=== PATIENT | female | born 1955 | race Caucasian/White ===

== ENCOUNTER → 2021-05-05 | Outpatient (CLI) | payer OTHER ==
[2021-04-26 15:00] VITALS: BP 138/86
[~2021-05-05] MED LIST: AMOX1TAB61 PO; ASCO100T4 PO; LORA2TAB89 PO; TRAM100T2 PO; vitamin D PO
--- NOTE | 2021-05-05 16:16 | RAD ---
EXAM: PET/CT SCAN INDICATION: Lung cancer, history of breast cancer. COMPARISON: PET/CT SCAN TECHNIQUE: Approximately 60 minutes after the intravenous administration of millicuries o f F-18 fluorodeoxyglucose (FDG), PET imaging of the body from the base of the skull through the mid t highs was performed. Reconstruction in all 3 planes were performed. The patient's serum glucose level at the time of the F-18 FDG administration was mg/dL. A noncontrast CT scan was obtained for attenua tion correction and anatomic localization purposes only and is not considered a diagnostic CT scan. PQRS compliance Statement One or more of the following individualized dose reduction techniques were utilized for this study: 1. Automated exposure control 2. Adjustment of the mA and/or kV according to patient size 3. Use of iterative reconstruction technique FINDINGS: Background: Mediastinal SUV max: 3.2 Liver SUV max: 2.75. HEAD AND NECK: There is a 0.9 cm lymph node in the lower left neck with mild FDG uptake, SUV max 3.9. There is FDG uptake in the left supra clavicular region with a 1.8 x 1.9 cm lymph node posterior to the medial left clavicle with SUV max 6.2. There is a small focus of mild radiotracer uptake in the r ight supraclavicular region with SUV max 4.0 which may correlate with a small vessel or a tiny lymph node. CHEST: There is bulky prevascular, right paratracheal/anterior mediastinal, and right hilar lymphaden opathy with high FDG uptake, SUV max 12.7. There is a mass in the right upper lobe measuring 5.1 x 4. 7 cm with high FDG uptake, SUV max 14.0. There are surrounding consolidative and groundglass opacitie s and interlobular septal thickening. Opacities in the right lower lobe with no increased FDG uptake are likely atelectasis. There are small pleural effusions with no metabolic activity. Heart is normal in size. There is a pericardial effusion. There are calcifications in the aorta. Ther e is mild FDG uptake along the left axillary node dissection, likely postoperative. There are bilater al breast implants. ABDOMEN AND PELVIS: No suspicious FDG uptake or lymphadenopathy in the abdomen and pelvis. There is a 2.3 cm cyst in the left hepatic lobe with no FDG uptake. Possible sludge in the gallbladder. The archuleta creas, spleen, adrenal glands, kidneys, and ureters are unremarkable. There multiple large bladder di verticula. Uterus and ovaries are unremarkable. Mild sigmoid and descending colon diverticulosis. Sma ll bowel and stomach are unremarkable. Abdominal aorta is normal in caliber with moderate calcified a therosclerosis. MUSCULOSKELETAL: No suspicious FDG uptake or osseous lesion. IMPRESSION: 1. FDG-avid right upper lobe mass consistent with malignancy. FDG avid mediastinal and right hilar ly mphadenopathy consistent with metastatic disease. 2. There is increased radiotracer uptake in the lower left neck and left subclavicular lymph nodes, a nd to a lesser extent in the right supraclavicular region, which may also represent metastatic diseas e. 3. No evidence of metastatic disease in the abdomen and pelvis. Electronically signed by: Leonor Ventura MD (05/05/2021 4:13 PM) [id number]
== END ==
LOC: PETSC 10:10
PROVIDERS: ATTEND Internal Medicine Hematology & Oncology
DX: C79.81 Secondary malignant neoplasm of breast (principal); I31.3 Pericardial effusion (noninflammatory); I70.0 Atherosclerosis of aorta
CPT/HCPCS: 78815; A9552

== ENCOUNTER 2021-05-10 13:52 | Inpatient (IN) | payer MEDICARE, OTHER ==
[~2021-05-10] VITALS: Ht 170.2 cm; Wt 71.4 kg
[2021-05-10 15:00] VITALS: BP 117/68
[2021-05-10] MEDS ORDERED: ACETAMINOPHEN 325 MG TABLET. PO PRN (15:45)
[2021-05-10] MEDS ORDERED: HYDROmorphone 2 MG/ML VIAL IV PRN (15:45)
[2021-05-10] MEDS ORDERED: MAGNESIUM HYDROXIDE 2,400 MG/30 ML ORAL.SUSP. PO PRN (15:45)
[2021-05-10] MEDS ORDERED: ONDANSETRON PF 4 MG/2 ML VIAL. IVP PRN (15:45)
[2021-05-10] MEDS ORDERED: CALCIUM CARBONATE 500 MG TAB.CHEW PO PRN (15:45)
[2021-05-10] MEDS ORDERED: ZOLPIDEM 5 MG TABLET. PO PRN (15:45)
--- NOTE | 2021-05-10 16:18 | PDOC1 ---
History and Physical Date of Admission Date of Admission DATE: 05/10/21 TIME: 16:16 Identification/Chief Complaint Chief Complaint Left arm swelling Source Source: Patient History of Present Illness History of Present Illness Ms Cheatham is a 65yo F w/ PMHx breast cancer (s/p mastectomy left breast 1990 and right breast 2012 - was on tamoxifen, now off. no chemo or radiation therapy), smoker, and recent diagnosis of right lung adenocarcinoma who presents as a direct admission I excepted from Dr. Christopher device oncology office for worsening left upper extremity and neck swelling and pain with bilateral lower extremity and shortness of breath. She has had increasing shortness of breath, lump in her left neck swelling of left arm for the past couple of months. Her shortness of breath and swelling comes and goes for about the past 4 months. She was admitted 04/24 to 04/26/2021 for similar symptoms and underwent right lung biopsy which returned positive for adenocarcinoma and had hematology oncology and radiation oncology consultation. CT chest with contrast revealed right upper lobe mass measuring 4.8 x 5.5 cm concerning for malignancy as well as numerous enlarged prevascular and pretracheal lymph nodes which cause extrinsic compression of the SVC and the left brachiocephalic vein and a moderate right and small left pleural effusion back on 04/24/[address] abdomen negative for metastatic disease Had thoracentesis with 725cc removed on 04/25/2021 at time of biopsy. She was discharged with improved symptoms. PET CT on 05/05 with FDG-avid right upper lobe mass consistent with malignancy. FDG avid mediastinal and right hilar lymphadenopathy consistent with metastatic disease. Also with increased radiotracer uptake in the lower left neck and left subcla vicular lymph nodes, and to a lesser extent in the right supraclavicular region, which may also represent metastatic disease. She has undergone radiation treatment and has plans to initiate chemotherapy but her oncology visit she significant shortness of breath left upper extremity swelling and bilateral lower extremity swelling came urgently directly admitted. Past Medical History CENTRAL NERVOUS SYSTEM: Other Heme/Onc: Cancer Past Surgical History Past Surgical History: Breast Biopsy, Mastectomy, Other Family History Family History: Cancer Social History Smoke: <1 pack per day ALCOHOL: occassional Drugs: Marijuana Current Medications Current Medications Current Medications Ringer's Solution 1,000 ml @ 100 mls/hr Q10H IV ; Start 05/10/21 at 15:45 Ondansetron HCl (Zofran) 4 mg PRN Q6HRS PRN IVP NAUSEA/VOMITING; Start 05/10/21 at 15:45 Calcium Carbonate/ Glycine (Tums) 500 mg PRN Q3HRS PRN PO UPSET STOMACH; Start 05/10/21 at 15:45 Zolpidem Tartrate (Ambien) 5 mg PRN QHS PRN PO INSOMNIA, MAY REPEAT IN 1HR; Start 05/10/21 at 15:45 Hydromorphone HCl (Dilaudid) 0.5 mg PRN Q3HRS PRN IV PAIN-SEE COMMENTS; Start 05/10/21 at 15:45 Oxycodone HCl (Roxicodone) 5 mg PRN Q4HRS PRN PO MILD PAIN, 2ND CHOICE; Start 05/10/21 at 15:45 Acetaminophen (Tylenol) 650 mg PRN Q6HRS PRN PO Headaches, Temp > 101.5F; Start 05/10/21 at 15:45 Senna/Docusate Sodium (Senna Plus) 1 tab BID PO ; Start 05/10/21 at 21:00 Magnesium Hydroxide (Milk Of Magnesia) 2,400 mg PRN Q12HR PRN PO CONSTIPATION; Start 05/10/21 at 15:45 Heparin Sodium (Porcine) (Heparin Sodium) 5,000 unit Q12HR SQ ; Start 05/10/21 at 16:00 Active Scripts Active Reported Augmentin 875-125 Tablet (Amoxicillin/Potassium Clav) 1 Each Tablet 1 Tab PO BID Ativan (Lorazepam) 2 Mg Tablet 2 Mg PO Q6HRS Tramadol Hcl 100 Mg Tbmp.24hr 100 Mg PO Q6H PRN [vitamin D ] 1 Tab PO DAILY Vitamin C (Ascorbic Acid) 100 Mg Tablet 1 Tab PO DAILY 30 Days Allergies Allergies: Coded Allergies: No Known Drug Allergies (Unverified , 04/24/21) ROS General: YES: Fatigue, Malaise; No: Chills, Night Sweats, Appetite, Other PSYCHOLOGICAL ROS: No: Anxiety, Behavioral Disorder, Concentration difficultie, Decreased libido, Depression, Disorientation, Hallucinations, Hostility, Irritablity, Memory difficulties, Mood Swings, Obsessive thoughts, Physical abuse, Sexual abuse, Sleep disturbances, Suicidal ideation, Other Eyes: No Blurry vision, No Decreased vision, No Double vision, No Dry eyes, No Excessive tearing, No Eye Pain, No Itchy Eyes, No Loss of vision, No Photophobia, No Scotomata, No Uses contacts, No Uses glasses, No Other HEENT: No: Heacaches, Visual Changes, Hearing change, Nasal congestion, Nasal discharge, Oral lesions, Sinus pain, Sore Throat, Epistaxis, Sneezing, Snoring, Tinnitus, Vertigo, Vocal changes, Other ALLERGY AND IMMUNOLOGY: No: Hives, Insect Bite Sensitivity, Itchy/Watery Eyes, Nasal Congestion, Post Nasal Drip, Seasonal Allergies, Other Hematological and Lymphatic: No: Bleeding Problems, Blood Clots, Blood Transfusions, Brusing, Night Sweats, Pallor, Swollen Lymph Nodes, Other ENDOCRINE: No: Breast Changes, Galactorrhea, Hair Pattern Changes, Hot Flashes, Malaise/lethargy, Mood Swings, Palpitations, Polydipsia/polyuria, Skin Changes, Temperature Intolerance, Unexpected Weight Changes, Other Breast: No New/Changing Breast Lumps, No Nipple changes, No Nipple discharge, No Other Respiratory: YES: Cough, Shortness of breath, Tachypnea, Wheezing; No: Hemoptysis, Orthopnea, Pleuritic Pain, SOB with excertion, Sputum Changes, Stridor, Other Cardiovascular: No Chest Pain, No Palpitations, No Orthopnea, No Paroxysmal Noc. Dyspnea, No Edema, No Lt Headedness, No Other Gastrointestinal: No Nausea, No Vomiting, No Abdominal Pain, No Diarrhea, No Constipation, No Melena, No Hematochezia, No Other Genitourinary: No Dysuria, No Frequency, No Incontinence, No Hematuria, No Retention, No Discharge, No Urgency, No Pain, No Flank Pain, No Other, No , No , No , No , No , No , No Musculoskeletal: Yes Joint Swelling, Yes Muscle Pain; No Gait Disturbance, No Joint Pain, No Joint Stiffness, No Muscular Weakness, No Pain In:, No Swelling In:, No Other Neurological: No Behavorial Changes, No Bowel/Bladder ControlChng, No Confusion, No Dizziness, No Gait Disturbance, No Headaches, No Impaired Coord/balance, No Memory Loss, No Numbness/Tingling, No Seizures, No Speech Problems, No Tremors, No Visual Changes, No Weakness, No Other Skin: No Dry Skin, No Eczema, No Hair Changes, No Lumps, No Mole Changes, No Mottling, No Nail Changes, No Pruritus, No Rash, No Skin Lesion Changes, No Other, No Acne Physical Exam General: Alert, Oriented X3, Cooperative, moderate distress HEENT: Atraumatic, PERRLA, EOMI, Mucous membr. moist/pink Lungs: Other (Bilateral wheezing) Heart: S1S2, RRR, no thrills, no rubs, no gallops, no murmurs Abdomen: Normal bowel sounds, Soft, No tenderness, No hepatosplenomegaly, No masses Rectal Exam: not examined Extremities: No clubbing, No cyanosis, Normal pulses, Other (1+ ankle edema) Skin: No rashes, No breakdown, No significant lesion Neuro: Normal gait, Normal speech, Strength at 5/5 X4 ext, Normal tone, Sensation intact, Cranial nerves 3-12 NL, Reflexes 2+ Psych/Mental Status: Mental status NL, Mood NL VTE Prophylaxis Ordered VTE Prophylaxis Devices: Yes VTE Pharmacological Prophylaxi: Yes Assessment/Plan Assessment/Plan A/P: Left arm swelling and pain -with active cancerconcern for possible DVT will get venous Doppler to rule as. More likely this is a symptomatic brachiocephalic vein compression that has not been responsive to radiation therapy will consult IR for consideration of brachiocephalic stenting. Given her active and aggressive adenocarcinoma with need for chemotherapy will consult for port placement as well Bilateral lower extremity edema. Likely some mild diastolic CHF due to pulmonary hypertension from lung cancer and likely undiagnosed COPD. Will elevate extremities check NT proBNP could benefit from Lasix we will follow up labs. Shortness of breath - appears to have some COPD and definite SVC syndrome. 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 Will d/w pulm and IR if intervention is necessary. elevate arm H/o breast cancer (s/p mastectomy left breast 1990 and right breast 2012 - was on tamoxifen, now off. no chemo or radiation therapy) - metallic objects visible on left on imaging Smoker - counseled on cessation, nicotine patch FEN - General diet, npo after midnight PPX - heparin will hold tomorrow for likely biopsy in AM FULL CODE Dispo - inpatient for symptomatic right lung mass, likely 2 midnights. Justifications for Admission General Conditions Abnormal capillary refill?: Yes Justification for admission: Patient has tachycardia (> 100 beats per minute) or hypotension (SBP < 90 mm Hg) leading to inadequate systemic perfusion as indicated by new abnormal capillary refill of greater than 3 seconds. Other Justification BEVERLY ROSARIO MD May 10, 2021 16:18
[2021-05-10] MEDS: NICOTINE 7MG PATCH. TD SCH (16:46)
[2021-05-10] MEDS: oxyCODONE IR 5 MG TABLET PO PRN ×2 (16:47→21:47)
[2021-05-10] MEDS: HEPARIN for SUB-Q USE 5,000 UNIT/ML VIAL. SQ SCH ×2 (16:51→21:47)
[2021-05-10 17:03] LABS: BASO # 0.1 x10^3/uL (0.0-0.2); BASO % 1 % (0-3); EOS # 0.1 x10^3/uL (0.0-0.7); EOS % 2 % (0-3); HEMATOCRIT 38.9 % (36.0-47.0); HEMOGLOBIN 13.3 g/dL (12.0-15.5); LYMPH # 0.8 x10^3/uL (1.0-4.8); LYMPH % 12 % (24-48); MEAN CORPUSCULAR HEMOGLOBIN 37 pg (25-35); MEAN CORPUSCULAR HGB CONC 34 g/dL (31-37); MEAN CORPUSCULAR VOLUME 108 fL (79-100); MONO # 0.7 x10^3/uL (0.0-1.1); MONO % 10 % (0-9); NEUT # 5.2 x10^3/uL (1.8-7.7); NEUT % 75 % (31-73); PLATELET COUNT 308 x10^3/uL (140-400); RED BLOOD COUNT 3.61 x10^6/uL (3.50-5.40); RED CELL DISTRIBUTION WIDTH 13.3 % (11.5-14.5); WHITE BLOOD COUNT 6.9 x10^3/uL (4.0-11.0)
[2021-05-10 17:04] LABS: PROTHROMBIN TIME PATIENT 14.4 SEC (11.7-14.0)
[2021-05-10 17:59] LABS: ALBUMIN 2.7 g/dL (3.4-5.0); ALBUMIN/GLOBULIN RATIO 0.8 (1.0-1.7); CALCIUM 8.7 mg/dL (8.5-10.1); CREATININE 0.8 mg/dL (0.6-1.0); GFR 71.8; POTASSIUM 3.2 mmol/L (3.5-5.1); TOTAL BILIRUBIN 0.7 mg/dL (0.2-1.0)
[2021-05-10 19:00] VITALS: BP 140/53
[2021-05-10] MEDS: BUDESONIDE 0.5 MG/2 ML NEBU. NEB SCH (19:18)
[2021-05-10] MEDS: IPRATRPIUM/ALBUTEROL 0.5/2.5MG 3 ML NEBU. NEB SCH ×2 (19:18→20:00)
--- NOTE | 2021-05-10 19:54 | RAD ---
EXAM: XR CHEST 1V 05/10/2021 5:50 PM CLINICAL INDICATION: Lung cancer, worsening shortness of breath COMPARISON: Chest radiograph 04/26/2021 TECHNIQUE: AP upright view of the chest FINDINGS: The heart is normal in size. There is fullness of the right hilum corresponding with known hilar mass. There is unchanged fullness of the right hilum corresponding with known lymphadenopathy. The right upper lobe mass is slightly less dense medially, similar appearance to 04/24/2021. There is increased along the minor fissure and several new nodular opacities in the right upper lung. There a re mildly increased small pleural effusions. Mild left basilar opacities are new. No pneumothorax. Th ere are clips in the left axilla. IMPRESSION: 1. Persistent right upper lobe mass, slightly less dense medially, which could be due to differences in technique given short interval. This is similar in appearance to 04/24/2021. 2. There are a few new nodular opacities in the right upper lung and new opacities in the left lung b ase. 3. Slightly increased, small pleural effusions. 4. Unchanged right hilar fullness corresponding with lymphadenopathy. Electronically signed by: Leonor Ventura MD (05/10/2021 7:51 PM) [id number]
[2021-05-10] MEDS: IV RINGERS,LACTATED 1000ML 1,000 ML IV SCH (21:35)
[2021-05-10] MEDS: SENNOSIDES/DOCUSATE 8.6/50MG TABLET. PO SCH (21:35)
--- NOTE | 2021-05-10 21:40 | NUR ---
Scheduled 1999 Duoneb non-administered as patient received previous dose at approx. 1920.
--- NOTE | 2021-05-10 21:57 | NUR ---
Patient's family member called in regards to the medications the patient received this evening. Patient's security code confirmed and medications administered this evening listed for family member. Family member upset and concerned that patient was given oxycodone for pain asking, "...who prescribed that for her", "...she only takes tramadol", and "...does she know she got an opioid"? Family member informed that admitting MD prescribed oxycodone and assured that patient was educated on medication prior to administration(this RN verified with RADIATION ONCOLOGIST while on phone). This RN offered to transfer call to patient's room so family member could verify with patient that education on oxycodone was done; family member declined. This RN spoke with patient after call. Patient's NKDA status verified and patient confirmed that she was aware the oxycodone was given for pain, it was an opioid and reports no concerns with taking it this evening. Patient remains in bed, call light within reach and no other needs voiced at this time.
[2021-05-10 23:00] VITALS: BP 120/62
--- NOTE | 2021-05-10 23:47 | RAD ---
US DPLX VENOUS EXTREMITY UPPER LT History: Reason: left arm swelling, lung cancer, concern for DVT / Spl. Instructions: / History: Comparison: None. Procedure: Color flow Doppler, Doppler spectral analysis, and 2D images are obtained with and without compression in the jugular vein, subclavian vein, axillary vein, brachial vein, radial vein, ulnar v ein, and basilic and cephalic veins. Findings: Patent left internal jugular, subclavian, axillary and brachial veins. Left radial vein appears paten t. Left ulnar vein is not well evaluated due to soft tissue swelling. No definite thrombosis. Patent cephalic and basilic veins. IMPRESSION: 1. No evidence of deep vein thrombosis although evaluation is degraded within the forearm. Electronically signed by: Cameron Sung DO (05/10/2021 11:44 PM) [facility]
[2021-05-11] VITALS (11 sets, daily range): BP systolic 80–139; BP diastolic 45–80
[2021-05-11] MEDS: IV RINGERS,LACTATED 1000ML 1,000 ML IV SCH ×3 (01:45→14:38)
[2021-05-11] MEDS: ALBUTEROL SULFATE 2.5 MG/3 ML NEBU. NEB PRN ×2 (04:19→14:00)
[2021-05-11] MEDS: IPRATRPIUM/ALBUTEROL 0.5/2.5MG 3 ML NEBU. NEB SCH ×4 (07:02→20:19)
[2021-05-11] MEDS: BUDESONIDE 0.5 MG/2 ML NEBU. NEB SCH ×2 (07:02→20:19)
--- NOTE | 2021-05-11 08:00 | NUR ---
spoke with Marcela and Terry about her plan of care. answered questions about disease and possible progression. Terry is resting in bed. becomes short of air with activity. o2 sat is 95% on room air but has air hunger. o2 applied at 1 liter per nasal cannula for comfort.
[2021-05-11] MEDS: HEPARIN for SUB-Q USE 5,000 UNIT/ML VIAL. SQ SCH ×2 (09:00→21:21)
[2021-05-11] MEDS: SENNOSIDES/DOCUSATE 8.6/50MG TABLET. PO SCH ×2 (09:00→21:19)
--- NOTE | 2021-05-11 09:30 | NUR ---
obtained consent for vena cavagram with intervention. sister at bedside. they asked whether her port a cath would be placed today. IR called. NO consent obtained for this procedure. questions answered.
--- NOTE | 2021-05-11 10:31 | NUR ---
SW following. Discussed with RN, pt from home, 2L, room air, NPO. Pt having a procedure today. Oncology following for new lung cancer dx. RN advised no SW needs at this time. SW will continue to follow.
[2021-05-11] MEDS: NICOTINE 7MG PATCH. TD SCH (10:58)
[2021-05-11] MEDS ORDERED: IODIXANOL 320 MG/ML 100 ML VIAL. ONE (12:09)
[2021-05-11] MEDS ORDERED: LIDOCAINE WITH 8.4% SOD BICARB 3 ML DISP.SYRIN. ONE (12:09)
[2021-05-11] MEDS: oxyCODONE IR 5 MG TABLET PO PRN ×2 (12:11→19:29)
--- NOTE | 2021-05-11 12:26 | NUR ---
LEONID IS COMPLAINING OF LEFT SHOULDER PAIN AND IS REQUESTING MEDICATION,.GIVEN ROXICODONE WITH SIP OF WATER. OTHERWISE REMAINS NPO FOR PROCEDURE THIS AFTERNOON. CONTINUES TO BE SOB WITH ACTIVITY. SISTER DEPARTS. DR. JEREZ IS HERE AND UPDATE ON CONDITION Addendum: 05/11/21 at 1229 by KENA GARZA RN DEPARTING FOR PROCEDURE Addendum: 05/11/21 at 1247 by KENA GARZA RN sister notified that they are here to take to radiology
--- NOTE | 2021-05-11 12:27 | PDOC ---
[employer] PROGRESS NOTE Date of Service DOS: DATE: 05/11/21 TIME: 12:25 Chief Complaint Chief Complaint Left arm swelling and pain -with active cancer DVT - symptomatic brachiocephalic vein compression aggressive adenocarcinoma lung Bilateral lower extremity edema. diastolic CHF due to pulmonary hypertension from lung cancer and COPD. Shortness of breath - appears to have some COPD and definite SVC syndrome. 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 Will d/w pulm and IR if intervention is necessary. elevate arm H/o breast cancer (s/p mastectomy left breast 1990 and right breast 2012 - was on tamoxifen, now off. no chemo or radiation therapy) - metallic objects visible on left on imaging Smoker - counseled on cessation, nicotine patch History of Present Illness History of Present Illness IR to see for consideration of brachiocephalic stenting. Vitals/I&O Vitals/I&O: Vital Signs Date Time Temp Pulse Resp B/P (MAP) Pulse Ox O2 Delivery O2 Flow Rate FiO2 05/11/21 12:11 22 Nasal Cannula 2.0 05/11/21 11:20 93 05/11/21 11:00 97.8 107 125/75 (92) 97.8 I & O 05/10/21 05/10/21 05/11/21 15:00 23:00 07:00 Intake Total 500 ml 300 ml Balance 500 ml 300 ml Physical Exam General: Alert, Oriented X3, Cooperative, moderate distress Lungs: Wheezing Abdomen: Normal bowel sounds, Soft, No tenderness, No hepatosplenomegaly, No masses Extremities: No clubbing, No cyanosis, Normal pulses, Other (1+ ankle edema) Skin: No rashes, No breakdown, No significant lesion Labs Labs: Laboratory Tests Test 05/10/21 16:45 White Blood Count 6.9 x10^3/uL (4.0-11.0) Red Blood Count 3.61 x10^6/uL (3.50-5.40) Hemoglobin 13.3 g/dL (12.0-15.5) Hematocrit 38.9 % (36.0-47.0) Mean Corpuscular Volume 108 fL (79-100) Mean Corpuscular Hemoglobin 37 pg (25-35) Mean Corpuscular Hemoglobin Concent 34 g/dL (31-37) Red Cell Distribution Width 13.3 % (11.5-14.5) Platelet Count 308 x10^3/uL (140-400) Neutrophils (%) (Auto) 75 % (31-73) Lymphocytes (%) (Auto) 12 % (24-48) Monocytes (%) (Auto) 10 % (0-9) Eosinophils (%) (Auto) 2 % (0-3) Basophils (%) (Auto) 1 % (0-3) Neutrophils # (Auto) 5.2 x10^3/uL (1.8-7.7) Lymphocytes # (Auto) 0.8 x10^3/uL (1.0-4.8) Monocytes # (Auto) 0.7 x10^3/uL (0.0-1.1) Eosinophils # (Auto) 0.1 x10^3/uL (0.0-0.7) Basophils # (Auto) 0.1 x10^3/uL (0.0-0.2) Prothrombin Time 14.4 SEC (11.7-14.0) Prothromb Time International Ratio 1.2 (0.8-1.1) Sodium Level 138 mmol/L (136-145) Potassium Level 3.2 mmol/L (3.5-5.1) Chloride Level 101 mmol/L (98-107) Carbon Dioxide Level 28 mmol/L (21-32) Anion Gap 9 (6-14) Blood Urea Nitrogen 8 mg/dL (7-20) Creatinine 0.8 mg/dL (0.6-1.0) Estimated GFR (Cockcroft-Gault) 71.8 BUN/Creatinine Ratio 10 (6-20) Glucose Level 90 mg/dL (70-99) Calcium Level 8.7 mg/dL (8.5-10.1) Total Bilirubin 0.7 mg/dL (0.2-1.0) Aspartate Amino Transf (AST/SGOT) 30 U/L (15-37) Alanine Aminotransferase (ALT/SGPT) 33 U/L (14-59) Alkaline Phosphatase 105 U/L (46-116) CH-Mos-X-Type Natriuretic Peptide 536 pg/mL (0-124) Total Protein 6.0 g/dL (6.4-8.2) Albumin 2.7 g/dL (3.4-5.0) Albumin/Globulin Ratio 0.8 (1.0-1.7) Review of Systems Review of Systems: no n.v.d try to place port Comment Review of Relevant I have reviewed the following items yasmani (where applicable) has been applied. Medications: Current Medications Medications (Trade) Dose Ordered Sig/Gwendolyn Route PRN Reason Start Time Stop Time Status Last Admin Dose Admin Ringer's Solution 1,000 ml @ 100 mls/hr Q10H IV 05/10/21 15:45 05/11/21 06:58 Oxycodone HCl (Roxicodone) 5 mg PRN Q4HRS PRN PO MILD PAIN, 2ND CHOICE 05/10/21 15:45 05/11/21 12:11 Senna/Docusate Sodium (Senna Plus) 1 tab BID PO 05/10/21 21:00 05/10/21 21:35 Heparin Sodium (Porcine) (Heparin Sodium) 5,000 unit Q12HR SQ 05/10/21 16:00 05/10/21 21:47 Nicotine (Nicoderm Cq 7mg) 1 patch DAILY TD 05/10/21 16:30 05/11/21 10:58 Budesonide (Pulmicort) 0.5 mg RTBID NEB 05/10/21 20:00 05/11/21 07:02 Albuterol/ Ipratropium (Duoneb) 3 ml RTQID NEB 05/10/21 16:30 05/11/21 11:19 Albuterol Sulfate (Ventolin Neb Soln) 2.5 mg PRN Q4HRS PRN NEB SHORTNESS OF BREATH 05/10/21 16:30 05/11/21 04:19 Lorazepam (Ativan) 2 mg PRN Q6HRS PRN PO ANXIETY / AGITATION 05/10/21 19:30 05/11/21 10:57 Justifications for Admission General Conditions Abnormal capillary refill?: Yes Justification for admission: Patient has tachycardia (> 100 beats per minute) or hypotension (SBP < 90 mm Hg) leading to inadequate systemic perfusion as indicated by new abnormal capillary refill of greater than 3 seconds. Other Justification LC DOUGLAS MD May 11, 2021 12:27
[2021-05-11] MEDS ORDERED: MIDAZOLAM HCL/PF 5 MG/5 ML VIAL. ONE (12:28)
[2021-05-11] MEDS ORDERED: HEPARIN for IV BOLUS 10,000 UNIT/10 ML VIAL. ONE (12:28)
[2021-05-11] MEDS ORDERED: fentaNYL PF VIAL 250 MCG/5 ML VIAL ONE (12:28)
[2021-05-11] MEDS ORDERED: LIDOCAINE WITH 8.4% SOD BICARB 3 ML DISP.SYRIN. IJ ONE (13:30)
[2021-05-11] MEDS ORDERED: fentaNYL PF VIAL 250 MCG/5 ML VIAL IV ONE (13:30)
[2021-05-11] MEDS ORDERED: IODIXANOL 320 MG/ML 100 ML VIAL. IART ONE (13:30)
[2021-05-11] MEDS ORDERED: MIDAZOLAM HCL/PF 5 MG/5 ML VIAL. IV ONE (13:30)
[2021-05-11] MEDS ORDERED: CONTRAST GIVEN. MC PRN (13:30)
--- NOTE | 2021-05-11 13:58 | PDOC ---
Provider Note Date of Service: DATE: 05/11/21 TIME: 13:45 Provider Note IR NOTE LUE VENOGRAM: Left brachiocephalic vein widely patent with no collaterals or stenosis. Minimal narrowing of SVC wo collaterals or evidence of significant stenosis. Brachiocephalic or SVC stenting would confer no benefit in this setting. This does not seem to be the cause of the patients LUE edema. Hx of left axillary dissection noted. Perhaps this in conjunction with mediastinal lymph invasion is precipitating lymphedema? Discussed with Oncology. Will plan on port in AM. Justifications for Admission General Conditions Abnormal capillary refill?: Yes Justification for admission: Patient has tachycardia (> 100 beats per minute) or hypotension (SBP < 90 mm Hg) leading to inadequate systemic perfusion as indicated by new abnormal capillary refill of greater than 3 seconds. Other Justification SHERIF IRAHETA MD May 11, 2021 13:58
[2021-05-11] MEDS ORDERED: IPRATRPIUM/ALBUTEROL 0.5/2.5MG 3 ML NEBU. NEB ONE (14:00)
[2021-05-11] MEDS ORDERED: methylPREDNISolone SOD SUCC PF 40 MG/ML VIAL. IV ONE (14:30)
[2021-05-11] MEDS: POTASSIUM CHLORIDE 10MEQ 100 ML IV SCH ×2 (14:45→15:38)
--- NOTE | 2021-05-11 14:45 | NUR ---
returned from IR. respirations are labored and shallow. color is dusky. o2 on at 3l. audible wheeze. Dr. Mann white and returned page. orders received. stat respiratory treatment given. she is on frequent vs. sister at bedside. o2 placed to 2lnc nail beds dusky. Addendum: 05/11/21 at 1519 by KENA GARZA RN she is breathing easier after rt tx, o2 at 2l. no audible wheeze. chest xray done. and steroid given. she is feeling better and color is slightly better.
--- NOTE | 2021-05-11 15:00 | RAD ---
Study: XR CHEST 1V Indication: Wheezing. Dyspnea. Comparison: 05/10/2021 Findings: Right larger than left pleural effusions have increased. Greater degree of thickening along the right minor fissure which is again noted to be elevated. Hazy attenuation of the aerated right lung on a b ackground of atelectasis and known apical lung mass. Volume loss overlying the left pleural effusion. Increased interstitial markings. Left axillary surgical clips. Breast implants. Impression: Right larger than left pleural effusions have increased as has the extent of atelectasis. Redemonstra cortez right upper lung mass better characterized on the recent PET/CT. Electronically signed by: WILLIE SEPULVEDA MD (05/11/2021 2:57 PM) [facility]
--- NOTE | 2021-05-11 17:09 | PDOC ---
PULMONARY PROGRESS NOTES DATE: 05/11/21 TIME: 17:07 Vitals Vital Signs Date Time Temp Pulse Resp B/P (MAP) Pulse Ox O2 Delivery O2 Flow Rate FiO2 05/11/21 16:18 92 Nasal Cannula 3.0 05/11/21 14:45 113 22 122/71 (88) 05/11/21 13:45 96.8 96.8 General: Alert, Oriented X4 Lungs: Wheezing Cardiovascular: S1, S2 Abdomen: Soft, Non-tender Extremities: No Edema Labs Laboratory Tests Test 05/10/21 16:45 White Blood Count 6.9 x10^3/uL (4.0-11.0) Red Blood Count 3.61 x10^6/uL (3.50-5.40) Hemoglobin 13.3 g/dL (12.0-15.5) Hematocrit 38.9 % (36.0-47.0) Mean Corpuscular Volume 108 fL (79-100) Mean Corpuscular Hemoglobin 37 pg (25-35) Mean Corpuscular Hemoglobin Concent 34 g/dL (31-37) Red Cell Distribution Width 13.3 % (11.5-14.5) Platelet Count 308 x10^3/uL (140-400) Neutrophils (%) (Auto) 75 % (31-73) Lymphocytes (%) (Auto) 12 % (24-48) Monocytes (%) (Auto) 10 % (0-9) Eosinophils (%) (Auto) 2 % (0-3) Basophils (%) (Auto) 1 % (0-3) Neutrophils # (Auto) 5.2 x10^3/uL (1.8-7.7) Lymphocytes # (Auto) 0.8 x10^3/uL (1.0-4.8) Monocytes # (Auto) 0.7 x10^3/uL (0.0-1.1) Eosinophils # (Auto) 0.1 x10^3/uL (0.0-0.7) Basophils # (Auto) 0.1 x10^3/uL (0.0-0.2) Prothrombin Time 14.4 SEC (11.7-14.0) Prothromb Time International Ratio 1.2 (0.8-1.1) Sodium Level 138 mmol/L (136-145) Potassium Level 3.2 mmol/L (3.5-5.1) Chloride Level 101 mmol/L (98-107) Carbon Dioxide Level 28 mmol/L (21-32) Anion Gap 9 (6-14) Blood Urea Nitrogen 8 mg/dL (7-20) Creatinine 0.8 mg/dL (0.6-1.0) Estimated GFR (Cockcroft-Gault) 71.8 BUN/Creatinine Ratio 10 (6-20) Glucose Level 90 mg/dL (70-99) Calcium Level 8.7 mg/dL (8.5-10.1) Total Bilirubin 0.7 mg/dL (0.2-1.0) Aspartate Amino Transf (AST/SGOT) 30 U/L (15-37) Alanine Aminotransferase (ALT/SGPT) 33 U/L (14-59) Alkaline Phosphatase 105 U/L (46-116) RB-Bwh-R-Type Natriuretic Peptide 536 pg/mL (0-124) Total Protein 6.0 g/dL (6.4-8.2) Albumin 2.7 g/dL (3.4-5.0) Albumin/Globulin Ratio 0.8 (1.0-1.7) Medications Active Scripts Medications Dose Route/Sig Max Daily Dose Days Date Category Augmentin 875-125 Tablet (Amoxicillin/Potassium Clav) 1 Each Tablet 1 Tab PO BID 04/26/21 Reported Ativan (Lorazepam) 2 Mg Tablet 2 Mg PO Q6HRS 04/26/21 Reported Tramadol Hcl 100 Mg Tbmp.24hr 100 Mg PO Q6H PRN 04/26/21 Reported [vitamin D ] 1 Tab PO DAILY 04/24/21 Reported Vitamin C (Ascorbic Acid) 100 Mg Tablet 1 Tab PO DAILY 30 04/24/21 Reported Impression . CHART REVIEWED SPOKE WITH RANGE MANAGER RESP FAILURE SUSPECT RADIATION INDUCED PNEUMONITIS INCREASE EFFUSIONS, WILL PROCEED WITH THORACENTESIS ADDED ROCEPHIN AND STEROIDS. BRANDY MATTHEWS MD May 11, 2021 17:09
[2021-05-11] MEDS: cefTRIAXone IV Push 1 GM VIAL. IVP SCH (17:38)
--- NOTE | 2021-05-11 18:00 | NUR ---
sitting on side of bed. eating supper. breathing appears easier. she is able to eat without o2 on. left arm remains swollen pulse is better. dressing to above the left brachial is clean dry and intact. sister is going home for the evening.
[2021-05-11] MEDS: methylPREDNISolone SOD SUCC PF 125 MG/2 ML VIAL. IV SCH (21:19)
[2021-05-12] VITALS (7 sets, daily range): BP systolic 107–162; BP diastolic 48–75
[2021-05-12] MEDS: IPRATRPIUM/ALBUTEROL 0.5/2.5MG 3 ML NEBU. NEB SCH ×4 (07:38→20:29)
[2021-05-12] MEDS: BUDESONIDE 0.5 MG/2 ML NEBU. NEB SCH ×2 (07:38→20:29)
[2021-05-12] MEDS: IV RINGERS,LACTATED 1000ML 1,000 ML IV SCH ×3 (07:45→22:55)
[2021-05-12] MEDS ORDERED: LIDOCAINE 1%/EPI 1:100,000 20 ML VIAL. ONE (08:07)
[2021-05-12] MEDS: SENNOSIDES/DOCUSATE 8.6/50MG TABLET. PO SCH ×2 (08:28→20:55)
[2021-05-12] MEDS: HEPARIN for SUB-Q USE 5,000 UNIT/ML VIAL. SQ SCH ×2 (08:28→21:15)
--- NOTE | 2021-05-12 08:51 | PDOC ---
PULMONARY PROGRESS NOTES DATE: 05/12/21 TIME: 08:51 Vitals Vital Signs Date Time Temp Pulse Resp B/P (MAP) Pulse Ox O2 Delivery O2 Flow Rate FiO2 05/12/21 07:42 93 Nasal Cannula 4.0 05/12/21 07:00 97.5 119 21 162/63 (96) 97.5 General: Alert, Oriented X4 Lungs: Wheezing Cardiovascular: S1, S2 Abdomen: Soft, Non-tender Extremities: No Edema Labs Laboratory Tests Test 05/10/21 16:45 White Blood Count 6.9 x10^3/uL (4.0-11.0) Red Blood Count 3.61 x10^6/uL (3.50-5.40) Hemoglobin 13.3 g/dL (12.0-15.5) Hematocrit 38.9 % (36.0-47.0) Mean Corpuscular Volume 108 fL (79-100) Mean Corpuscular Hemoglobin 37 pg (25-35) Mean Corpuscular Hemoglobin Concent 34 g/dL (31-37) Red Cell Distribution Width 13.3 % (11.5-14.5) Platelet Count 308 x10^3/uL (140-400) Neutrophils (%) (Auto) 75 % (31-73) Lymphocytes (%) (Auto) 12 % (24-48) Monocytes (%) (Auto) 10 % (0-9) Eosinophils (%) (Auto) 2 % (0-3) Basophils (%) (Auto) 1 % (0-3) Neutrophils # (Auto) 5.2 x10^3/uL (1.8-7.7) Lymphocytes # (Auto) 0.8 x10^3/uL (1.0-4.8) Monocytes # (Auto) 0.7 x10^3/uL (0.0-1.1) Eosinophils # (Auto) 0.1 x10^3/uL (0.0-0.7) Basophils # (Auto) 0.1 x10^3/uL (0.0-0.2) Prothrombin Time 14.4 SEC (11.7-14.0) Prothromb Time International Ratio 1.2 (0.8-1.1) Sodium Level 138 mmol/L (136-145) Potassium Level 3.2 mmol/L (3.5-5.1) Chloride Level 101 mmol/L (98-107) Carbon Dioxide Level 28 mmol/L (21-32) Anion Gap 9 (6-14) Blood Urea Nitrogen 8 mg/dL (7-20) Creatinine 0.8 mg/dL (0.6-1.0) Estimated GFR (Cockcroft-Gault) 71.8 BUN/Creatinine Ratio 10 (6-20) Glucose Level 90 mg/dL (70-99) Calcium Level 8.7 mg/dL (8.5-10.1) Total Bilirubin 0.7 mg/dL (0.2-1.0) Aspartate Amino Transf (AST/SGOT) 30 U/L (15-37) Alanine Aminotransferase (ALT/SGPT) 33 U/L (14-59) Alkaline Phosphatase 105 U/L (46-116) GO-Dls-R-Type Natriuretic Peptide 536 pg/mL (0-124) Total Protein 6.0 g/dL (6.4-8.2) Albumin 2.7 g/dL (3.4-5.0) Albumin/Globulin Ratio 0.8 (1.0-1.7) Medications Active Scripts Medications Dose Route/Sig Max Daily Dose Days Date Category Augmentin 875-125 Tablet (Amoxicillin/Potassium Clav) 1 Each Tablet 1 Tab PO BID 04/26/21 Reported Ativan (Lorazepam) 2 Mg Tablet 2 Mg PO Q6HRS 04/26/21 Reported Tramadol Hcl 100 Mg Tbmp.24hr 100 Mg PO Q6H PRN 04/26/21 Reported [vitamin D ] 1 Tab PO DAILY 04/24/21 Reported Vitamin C (Ascorbic Acid) 100 Mg Tablet 1 Tab PO DAILY 30 04/24/21 Reported Impression . CHART REVIEWED SPOKE WITH FLIGHT TEST DATA ACQUISITION TECHNICIAN RESP FAILURE SUSPECT RADIATION INDUCED PNEUMONITIS INCREASE EFFUSIONS, WILL PROCEED WITH THORACENTESIS ADDED ROCEPHIN AND STEROIDS. BRANDY MATTHEWS MD May 12, 2021 08:51
[2021-05-12] MEDS ORDERED: MIDAZOLAM HCL/PF 2 MG/2 ML VIAL. ONE (09:08)
[2021-05-12] MEDS ORDERED: fentaNYL PF VIAL 100 MCG/2 ML VIAL ONE (09:08)
[2021-05-12] MEDS ORDERED: fentaNYL PF VIAL 100 MCG/2 ML VIAL IV ONE (09:45)
[2021-05-12] MEDS ORDERED: LIDOCAINE 1%/EPI 1:100,000 20 ML VIAL. INJ ONE (09:45)
[2021-05-12] MEDS ORDERED: HEPARIN PF 500 UNIT/5 ML DISP.SYRIN. IVP ONE ×2 (09:50→10:00)
[2021-05-12] MEDS ORDERED: MIDAZOLAM HCL/PF 2 MG/2 ML VIAL. IV ONE (10:00)
--- NOTE | 2021-05-12 10:41 | RAD ---
05/11/2021 8:20 AM 1.Right Thoracentesis 2. Placement of a left internal jugular tunneled central venous catheter with port 3. Left upper extremity venogram Clinical History: Right pleural effusion. Left arm swelling. Lung cancer. Chemotherapy access.. Possi ble left brachiocephalic narrowing and SVC narrowing on recent CT. Consent: The procedure was explained in its entirety to the patient or the patients designated repres entative by a member of the treatment team, including a discussion of the risks, benefits and commonl y accepted alternatives to the procedure, as well as the expected consequences of no therapy whatsoev er. Discussion of the risks included, but was not limited to, those that are most frequent and thos e that are rare but possibly severe or life-threatening, as well as the possibility of unforeseen com plications. Left upper extremity venogram, superior vena cavogram, multiple selective central venograms: The lef t upper extremity was prepped and draped using sterile barrier technique. 1% lidocaine was administer ed for local anesthesia. Ultrasound demonstrates left cephalic vein to be widely patent. The vein is accessed using micropuncture technique. A 5 [place] vascular sheath was placed. Venograms of the left upper extremity were performed from the sheath. The cephalic vein is patent. The left subclavian vein is patent. Left brachiocephalic vein is patent. Catheter was then advanced into the brachiocephalic vein and venograms continued demonstrating no significant brachiocephalic narrowing. The catheter was positioned in the right brachiocephalic vein which is found to be patent. The SVC demonstrates a mil d eccentric narrowing without evidence of flow limitation. No significant venous reflux into collater al vessels is identified. Venogram findings are not consistent with either SVC syndrome, or hemodynam ically significant left brachiocephalic vein stenosis. Thoracentesis: Sonographic assessment demonstrates a large right pleural effusion. A site for skin en try was selected, and subsequently prepped and draped using sterile barrier technique. 1% lidocaine without epinepherine was administered for local anesthesia to the skin and subcutaenous tissues. A 5 [place] sheathed needle was passed into the pleural space. Clear yellow fluid was aspirated and the c atheter was connected to a vacuum. Approximately 1.8 liters of fluid were drained. The catheter was r emoved and adequate hemostasis was obtained. A sterile dressing was applied. The patient tolerated t he procedure well, without complications. Port placement: The patient was then placed in a supine position. The left neck and chest were prepped and draped using maximum sterile barrier technique including the use of: Current guideline approved cutaneous antisepsis, a large sterile sheet to establish a steril e field. Additionally the sanding machine operator or tender wore a hat, mask, sterile gloves, a sterile gown during the proced ure as well as practiced acceptable hand hygiene prior to placing the port. Ultrasound-guided access: Ultrasound evaluation showed left jugular vein to be patent and compressib le. 1 % lidocaine with epinephrine was administered to the skin and subcutaneous tissues overlying th e left neck and chest. Under direct ultrasound guidance a single wall puncture was made followed by t ract dilation and placement of a sheath. An ultrasound image was saved and sent to PACS. Next, an inc ision was made in an infraclavicular location and a pocket created. The catheter was tunneled betwe en the pocket and the venotomy site. The catheter was advanced through the peel away sheath, under f luoroscopic guidance, such that it's tip was in the mid right atrium. The catheter was connected to t he port reservoir. The port was accessed and found to flush and aspirate normally. The reservoir was then placed into the subcutaneous pocket. The wound was closed in layers using 4-0 Vicryl suture. De rmabond was applied overlying the wound, and venotomy site. The patient tolerated procedure without i mmediate complication. Sedation: Conscious sedation was performed for 48 minutes. Sedation was carried out while the patie nt was continually monitored by a member of the Radiology nursing staff. Continual cardiopulmonary m onitoring was carried out during the procedure. The patient tolerated the procedure well and there w ere no immediate complications. Fluoroscopy time: 2.9 mins Dose area product 6 Spears centimeter squared Impression: 1. Successful right thoracentesis 2. Successful placement of a left internal jugular tunneled central venous catheter with port 3. No venographic evidence of hemodynamically significant SVC syndrome or left brachiocephalic venous stenosis Electronically signed by: Amado Tapia MD (05/12/2021 10:39 AM) [id number]
[2021-05-12] MEDS: methylPREDNISolone SOD SUCC PF 125 MG/2 ML VIAL. IV SCH ×2 (10:42→20:54)
[2021-05-12] MEDS: NICOTINE 7MG PATCH. TD SCH (10:43)
[2021-05-12] MEDS: oxyCODONE IR 5 MG TABLET PO PRN ×2 (10:48→21:09)
--- NOTE | 2021-05-12 12:37 | NUR ---
SW following. Discussed with RN, pt from home, 4L (does not use at home), regular diet. Pt requested to see the DPOA paperwork to determine if she wants to complete it. SW gave blank DPOA paperwork to patient, she also wants her sister to take a look. Pt declined any further SW needs at this time. SW will continue to follow.
--- NOTE | 2021-05-12 12:48 | PDOC ---
[facility] PROGRESS NOTE Date of Service DOS: DATE: 05/12/21 TIME: 12:47 Chief Complaint Chief Complaint Left arm swelling and pain -with active cancer DVT - symptomatic brachiocephalic vein compression aggressive adenocarcinoma lung Bilateral lower extremity edema. diastolic CHF due to pulmonary hypertension from lung cancer and COPD. Shortness of breath - appears to have some COPD and definite SVC syndrome. 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 Will d/w pulm and IR if intervention is necessary. elevate arm H/o breast cancer (s/p mastectomy left breast 1990 and right breast 2012 - was on tamoxifen, now off. no chemo or radiation therapy) - metallic objects visible on left on imaging Smoker - counseled on cessation, nicotine patch History of Present Illness History of Present Illness port today still weakness, poor po intake still full code, will be difficult discussion, she may be getting too dyspneic and weak to tolerate much therapy Vitals/I&O Vitals/I&O: Vital Signs Date Time Temp Pulse Resp B/P (MAP) Pulse Ox O2 Delivery O2 Flow Rate FiO2 05/12/21 12:43 Room Air 05/12/21 11:54 4.0 05/12/21 11:48 95 05/12/21 11:00 98.1 64 17 143/48 (79) 98.1 I & O 05/11/21 05/11/21 05/12/21 15:00 23:00 07:00 Intake Total 60 ml Balance 60 ml Physical Exam General: Alert, Oriented X3, Cooperative, moderate distress Lungs: Wheezing Abdomen: Normal bowel sounds, Soft, No tenderness, No hepatosplenomegaly, No masses Extremities: No clubbing, No cyanosis, Normal pulses, Other (1+ ankle edema) Skin: No rashes, No breakdown, No significant lesion Review of Systems Review of Systems: weakness, dyspnea Comment Review of Relevant I have reviewed the following items yasmani (where applicable) has been applied. Medications: Current Medications Medications (Trade) Dose Ordered Sig/Gwendolyn Route PRN Reason Start Time Stop Time Status Last Admin Dose Admin Heparin Sodium/ Sodium Chloride (HEPARIN for ARTERIAL LINE FLUSH) 1,000 unit 1X ONCE IART 05/11/21 13:30 05/11/21 13:31 DC 05/11/21 13:30 Lidocaine HCl (Buffered Lidocaine 1%) 1 ml 1X ONCE IJ 05/11/21 13:30 05/11/21 13:31 DC 05/11/21 13:30 Midazolam HCl (Versed) 2 mg 1X ONCE IV 05/11/21 13:30 05/11/21 13:31 DC 05/11/21 13:30 Fentanyl Citrate (Fentanyl 5ml Vial) 75 mcg 1X ONCE IV 05/11/21 13:30 05/11/21 13:31 DC 05/11/21 13:30 Iodixanol (Visipaque 320) 39 ml 1X ONCE IART 05/11/21 13:30 05/11/21 13:31 DC 05/11/21 13:30 Methylprednisolone Sodium Succinate (SOLU-Medrol 40MG VIAL) 40 mg 1X ONCE IV 05/11/21 14:30 05/11/21 14:31 DC 05/11/21 14:08 Potassium Chloride/Water 100 ml @ 100 mls/hr Q1H IV 05/11/21 15:00 05/11/21 16:59 DC 05/11/21 15:38 Methylprednisolone Sodium Succinate (SOLU-Medrol 125MG VIAL) 125 mg Q12HR IV 05/11/21 21:00 05/12/21 10:42 Ceftriaxone Sodium (Rocephin) 1 gm Q24H IVP 05/11/21 18:00 05/11/21 17:38 Midazolam HCl (Versed) 2 mg 1X ONCE IV 05/12/21 10:00 05/12/21 10:01 DC 05/12/21 09:18 Fentanyl Citrate (Fentanyl 2ml Vial) 100 mcg 1X ONCE IV 05/12/21 09:45 05/12/21 09:46 DC 05/12/21 09:18 Lidocaine/ Epinephrine (LIDOCAINE 1%-EPI 1:100,000 Multi-Dose) 20 ml 1X ONCE INJ 05/12/21 09:45 05/12/21 09:46 DC 05/12/21 09:45 Heparin Sodium (Porcine) (Hep Lock Adult) 500 unit 1X ONCE IVP 05/12/21 10:00 05/12/21 10:01 DC 05/12/21 09:57 Justifications for Admission General Conditions Abnormal capillary refill?: Yes Justification for admission: Patient has tachycardia (> 100 beats per minute) or hypotension (SBP < 90 mm Hg) leading to inadequate systemic perfusion as indicated by new abnormal capillary refill of greater than 3 seconds. Other Justification LC DOUGLAS MD May 12, 2021 12:47
--- NOTE | 2021-05-12 14:30 | NUR ---
Pt. refused radiation today due to L arm pain from portacath placement, she states she cannot hold it above her head at this time.
[2021-05-12] MEDS: cefTRIAXone IV Push 1 GM VIAL. IVP SCH (17:31)
--- NOTE | 2021-05-13 00:25 | CONS ---
DATE OF CONSULTATION: 05/12/2021 REQUESTING PHYSICIAN: Yifan Omer MD REASON FOR CONSULTATION: The patient is seen in pulmonary consultation at the request of Dr. Omer for abnormal x-ray, increasing shortness of breath, hypoxemia. HISTORY OF PRESENT ILLNESS: The patient is a 65-year-old who was recently admitted back in the late part of April with a lung mass, pleural effusion. She had a biopsy revealing evidence of malignancy. She is currently being treated as an outpatient for bronchogenic carcinoma with radiation. The patient was admitted to undergo placement of a left internal tunneled central catheter with port. She also had a left upper extremity venogram and right thoracentesis. There was successful removal of 1800 mL of pleural fluid. There was successful placement of a left internal jugular tunneled central catheter with port. There was no venographic evidence of hemodynamically significant SVC syndrome or left brachiocephalic venous stenosis. Since the admission, the patient became increasingly more short of breath. I was asked to see her in consultation. She is currently requiring oxygen supplementation. She has a cough, mostly nonproductive. She did have some hemoptysis sometime last week. She has had previous PET scan on 05/05 revealing uptake in the right upper lobe consistent with malignancy. She also had FDG mediastinal, right hilar uptake compatible with metastatic disease. PAST MEDICAL HISTORY: Remarkable for: 1. Previous history of breast cancer status post mastectomy, left breast 1990. 2. She had right breast mastectomy in 2012, she is on tamoxifen. 3. COPD. 4. History of tobacco dependence, in remission. PAST SURGICAL HISTORY: 1. Previous breast biopsy. 2. Mastectomy as indicated above. FAMILY HISTORY: Cancer. SOCIAL HISTORY: She smokes 1 pack of cigarettes a day. REVIEW OF SYSTEMS: CONSTITUTIONAL: No documented fever. HEENT: No new headaches or diplopia. PULMONARY: As indicated above. CARDIOVASCULAR: As indicated above. No chest pain or pressure. GASTROINTESTINAL: No nausea, vomiting, diarrhea. GENITOURINARY: No dysuria or frequency. MUSCULOSKELETAL: No localized muscle aches or joint pains. SKIN: No new skin rashes. NEUROLOGIC: No headaches, diplopia or blurred vision. Labs were reviewed. She is currently receiving nebulized treatments, Pulmicort nebulized, and ceftriaxone. I did start her on steroids yesterday for presumptive diagnosis of radiation-induced pneumonitis. PHYSICAL EXAMINATION: GENERAL: On examination, the patient appeared to be ill. She was in no significant respiratory distress, currently on 4 liters of oxygen supplementation. She came in on 1 liter and has had increasing oxygen requirements in the last couple of days. HEENT: The sclerae were nonicteric. NECK: Jugular venous distention was not elevated. No lymphadenopathy. CHEST: Full expansion. LUNGS: Diminished breath sounds in the bases, expiratory wheeze. CARDIOVASCULAR: Regular rate and rhythm with S1, S2. No S3. ABDOMEN: Soft, nontender, nondistended. EXTREMITIES: No clubbing, cyanosis or edema. LABORATORY DATA: Labs were reviewed. White count was normal. INR was 1.2. Electrolytes were noted. BUN and creatinine normal. Potassium is low. IMAGING: Chest x-ray from yesterday was reviewed. There is right-sided effusion, larger than previous x-ray. IMPRESSION: 1. Acute hypoxemic respiratory failure. 2. Metastatic lung cancer. 3. History of breast cancer. 4. Venogram revealing no evidence of hemodynamically significant SVC syndrome or left brachiocephalic venous stenosis. 5. Recurrent malignant effusion. 6. Protein malnutrition, present upon admission. 7. Status post placement of internal jugular central venous catheter with port. 8. Right upper extremity venous Doppler revealed no evidence of deep venous thrombosis. 6. Hypokalemia. 7. 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 PLAN: 1. We will continue support with oxygen supplementation. 2. Steroids. 3. IV antibiotics. 4. DVT prophylaxis. 5. Nutritional support. 6. Nebulized treatments. 7. Case discussed with Dr. Hollins. We will proceed with repeat thoracentesis. 8. If pleural fluid reaccumulates, we may consider PleurX catheter. I do appreciate the privilege in sharing in this patient's care. MAYELA HARPER: Candy TID: [id number]
[2021-05-13 03:00] VITALS: BP 138/63
[2021-05-13 07:00] VITALS: BP 108/68
[2021-05-13] MEDS: BUDESONIDE 0.5 MG/2 ML NEBU. NEB SCH (07:32)
[2021-05-13] MEDS: IPRATRPIUM/ALBUTEROL 0.5/2.5MG 3 ML NEBU. NEB SCH ×3 (07:32→15:34)
--- NOTE | 2021-05-13 07:38 | PDOC ---
[facility] PROGRESS NOTE Date of Service DOS: DATE: 05/13/21 TIME: 07:34 Chief Complaint Chief Complaint A/P: Left arm swelling and pain -with active cancer no DVT, no brachiocephalic vein compression. Likely lymphedema, consulted OT lymphedema Aggressive adenocarcinoma lung Bilateral lower extremity edema. diastolic CHF due to pulmonary hypertension from lung cancer and COPD. Shortness of breath - appears to have some COPD and definite SVC syndrome. aggressive nebs Right lung cancer - PULMONARY ACINAR ADENOCARCINOMA with mets Neck swelling - elevate arm H/o breast cancer (s/p mastectomy left breast 1990 and right breast 2012 - was on tamoxifen, now off. no chemo or radiation therapy) - metallic objects visible on left on imaging Smoker - counseled on cessation, nicotine patch Recurrent malignant effusion - s/p 1.8L thoracentesis Protein malnutrition, present upon admission. Acute hypoxic respiratory failure - possibly radiation pneumonitis vs bronchitis FEN - Regular diet PPX - lovenox FULL CODE Dispo - History of Present Illness History of Present Illness Ms Cheatham is a 65yo F w/ PMHx breast cancer (s/p mastectomy left breast 1990 and right breast 2012 - was on tamoxifen, now off. no chemo or radiation therapy), smoker, and recent diagnosis of right lung adenocarcinoma who presents as a direct admission I excepted from Dr. Christopher device oncology office for worsening left upper extremity and neck swelling and pain with bilateral lower extremity and shortness of breath. She has had increasing shortness of breath, lump in her left neck swelling of left arm for the past couple of months. Her shortness of breath and swelling comes and goes for about the past 4 months. She was admitted 04/24 to 04/26/2021 for similar symptoms and underwent right lung biopsy which returned positive for adenocarcinoma and had hematology oncology and radiation oncology consultation. CT chest with contrast revealed right upper lobe mass measuring 4.8 x 5.5 cm concerning for malignancy as well as numerous enlarged prevascular and pretracheal lymph nodes which cause extrinsic compression of the SVC and the left brachiocephalic vein and a moderate right and small left pleural effusion back on 04/24/[address] abdomen negative for metastatic disease Had thoracentesis with 725cc removed on 04/25/2021 at time of biopsy. She was discharged with improved symptoms. PET CT on 05/05 with FDG-avid right upper lobe mass consistent with malignancy. FDG avid mediastinal and right hilar lymphadenopathy consistent with metastatic disease. Also with increased radiotracer uptake in the lower left neck and left subclavicular lymph nodes, and to a lesser extent in the right supraclavicular region, which may also represent metastatic disease. She has undergone radiation treatment and has plans to initiate chemotherapy but at her oncology visit she significant shortness of breath left upper extremity swelling and bilateral lower extremity swelling came urgently directly admitted. 05/12: Port placed, thoracentesis completed 1.8L. Still on 4L NCO2 Afebrile. Swelling of bilateral lower extremities improved. Left upper extremity still swollen. Lymphedema sleeves were. She still little short of breath on 4 L oxygen. Right basilar crackles noted. She feels improved on the steroids and would really like to go home discussed need for 6-minute walk and steroid taper outpatient and she needs to reschedule it her previously canceled chemotherapy appointment for 05/16/2021 Vitals/I&O Vitals/I&O: Vital Signs Date Time Temp Pulse Resp B/P (MAP) Pulse Ox O2 Delivery O2 Flow Rate FiO2 05/13/21 03:00 97.8 105 20 138/63 (88) 90 Nasal Cannula 4.0 97.8 I & O 05/12/21 05/12/21 05/13/21 15:00 23:00 07:00 Intake Total 0 ml 1540 ml 500 ml Output Total 1750 ml Balance -1750 ml 1540 ml 500 ml Physical Exam General: Alert, Oriented X3, Cooperative, moderate distress Lungs: Wheezing Abdomen: Normal bowel sounds, Soft, No tenderness, No hepatosplenomegaly, No masses Extremities: No clubbing, No cyanosis, Normal pulses, Other (1+ ankle edema) Skin: No rashes, No breakdown, No significant lesion Comment Review of Relevant I have reviewed the following items yasmani (where applicable) has been applied. Medications: Current Medications Medications (Trade) Dose Ordered Sig/Gwendolyn Route PRN Reason Start Time Stop Time Status Last Admin Dose Admin Midazolam HCl (Versed) 2 mg 1X ONCE IV 05/12/21 10:00 05/12/21 10:01 DC 05/12/21 09:18 Fentanyl Citrate (Fentanyl 2ml Vial) 100 mcg 1X ONCE IV 05/12/21 09:45 05/12/21 09:46 DC 05/12/21 09:18 Lidocaine/ Epinephrine (LIDOCAINE 1%-EPI 1:100,000 Multi-Dose) 20 ml 1X ONCE INJ 05/12/21 09:45 05/12/21 09:46 DC 05/12/21 09:45 Heparin Sodium (Porcine) (Hep Lock Adult) 500 unit 1X ONCE IVP 05/12/21 10:00 05/12/21 10:01 DC 05/12/21 09:57 Justifications for Admission General Conditions Abnormal capillary refill?: Yes Justification for admission: Patient has tachycardia (> 100 beats per minute) or hypotension (SBP < 90 mm Hg) leading to inadequate systemic perfusion as indicated by new abnormal capillary refill of greater than 3 seconds. Other Justification BEVERLY ROSARIO MD May 13, 2021 07:38
[2021-05-13 08:56] LABS: ALBUMIN 2.7 g/dL (3.4-5.0); ALBUMIN/GLOBULIN RATIO 0.8 (1.0-1.7); CREATININE 0.7 mg/dL (0.6-1.0); GFR 83.7; MAGNESIUM 2.1 mg/dL (1.8-2.4); POTASSIUM 3.9 mmol/L (3.5-5.1); TOTAL BILIRUBIN 0.3 mg/dL (0.2-1.0); TOTAL PROTEIN 6.2 g/dL (6.4-8.2)
[2021-05-13] MEDS: SENNOSIDES/DOCUSATE 8.6/50MG TABLET. PO SCH (08:58)
[2021-05-13] MEDS: NICOTINE 7MG PATCH. TD SCH (08:59)
[2021-05-13] MEDS: methylPREDNISolone SOD SUCC PF 125 MG/2 ML VIAL. IV SCH (09:01)
[2021-05-13] MEDS: HEPARIN for SUB-Q USE 5,000 UNIT/ML VIAL. SQ SCH (09:16)
[2021-05-13 11:00] VITALS: BP 136/75
[2021-05-13] MEDS ORDERED: traMADol 50 MG TABLET PO PRN (11:45)
[2021-05-13] MEDS ORDERED: MAGNESIUM CITRATE 296 ML SOLUTION. PO ONE (11:45)
--- NOTE | 2021-05-13 12:14 | PDOC ---
PULMONARY PROGRESS NOTES DATE: 05/13/21 TIME: 12:13 Subjective pt. remains on 4 liters NC no overnight events no increased SOA or Cough Vitals Vital Signs Date Time Temp Pulse Resp B/P (MAP) Pulse Ox O2 Delivery O2 Flow Rate FiO2 05/13/21 11:35 Nasal Cannula 4.0 05/13/21 07:36 94 05/13/21 07:00 97.5 102 18 108/68 (81) 97.5 ROS: No Nausea, No Chest Pain, No Abdominal Pain, No Increase Cough General: Alert, Oriented X4 Lungs: Wheezing Cardiovascular: S1, S2 Abdomen: Soft, Non-tender Extremities: No Edema Skin: Warm Labs Laboratory Tests Test 05/13/21 08:15 Sodium Level 139 mmol/L (136-145) Potassium Level 3.9 mmol/L (3.5-5.1) Chloride Level 102 mmol/L (98-107) Carbon Dioxide Level 29 mmol/L (21-32) Anion Gap 8 (6-14) Blood Urea Nitrogen 16 mg/dL (7-20) Creatinine 0.7 mg/dL (0.6-1.0) Estimated GFR (Cockcroft-Gault) 83.7 BUN/Creatinine Ratio 23 (6-20) Glucose Level 132 mg/dL (70-99) Calcium Level 9.0 mg/dL (8.5-10.1) Magnesium Level 2.1 mg/dL (1.8-2.4) Total Bilirubin 0.3 mg/dL (0.2-1.0) Aspartate Amino Transf (AST/SGOT) 32 U/L (15-37) Alanine Aminotransferase (ALT/SGPT) 41 U/L (14-59) Alkaline Phosphatase 93 U/L (46-116) Total Protein 6.2 g/dL (6.4-8.2) Albumin 2.7 g/dL (3.4-5.0) Albumin/Globulin Ratio 0.8 (1.0-1.7) Laboratory Tests Test 05/13/21 08:15 Sodium Level 139 mmol/L (136-145) Potassium Level 3.9 mmol/L (3.5-5.1) Chloride Level 102 mmol/L (98-107) Carbon Dioxide Level 29 mmol/L (21-32) Anion Gap 8 (6-14) Blood Urea Nitrogen 16 mg/dL (7-20) Creatinine 0.7 mg/dL (0.6-1.0) Estimated GFR (Cockcroft-Gault) 83.7 BUN/Creatinine Ratio 23 (6-20) Glucose Level 132 mg/dL (70-99) Calcium Level 9.0 mg/dL (8.5-10.1) Magnesium Level 2.1 mg/dL (1.8-2.4) Total Bilirubin 0.3 mg/dL (0.2-1.0) Aspartate Amino Transf (AST/SGOT) 32 U/L (15-37) Alanine Aminotransferase (ALT/SGPT) 41 U/L (14-59) Alkaline Phosphatase 93 U/L (46-116) Total Protein 6.2 g/dL (6.4-8.2) Albumin 2.7 g/dL (3.4-5.0) Albumin/Globulin Ratio 0.8 (1.0-1.7) Medications Active Scripts Medications Dose Route/Sig Max Daily Dose Days Date Category Augmentin 875-125 Tablet (Amoxicillin/Potassium Clav) 1 Each Tablet 1 Tab PO BID 04/26/21 Reported Ativan (Lorazepam) 2 Mg Tablet 2 Mg PO Q6HRS 04/26/21 Reported Tramadol Hcl 100 Mg Tbmp.24hr 100 Mg PO Q6H PRN 04/26/21 Reported [vitamin D ] 1 Tab PO DAILY 04/24/21 Reported Vitamin C (Ascorbic Acid) 100 Mg Tablet 1 Tab PO DAILY 30 04/24/21 Reported Impression . IMPRESSION: 1. Acute hypoxemic respiratory failure. 2. Metastatic lung cancer. 3. History of breast cancer. 4. Venogram revealing no evidence of hemodynamically significant SVC syndrome or left brachiocephalic venous stenosis. 5. Recurrent malignant effusion S/p thoracentesis on 05/12/21 6. Protein malnutrition, present upon admission. 7. Status post placement of internal jugular central venous catheter with port. 8. Right upper extremity venous Doppler revealed no evidence of deep venous thrombosis. 6. Hypokalemia. 7. 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 Plan . PLAN: Continue supplemental oxygen to keep sats above 92%, currently on 4 liters NC S/P 6 min walk DC home with 4 liters NC Continue steroids at 30mg po daily until follow up in office with me Continue ABX on augmentin S/P right sided thoracentesis on 05/12/21 with 1.8 liters of fluid were drained, if fluid re-accumulates will consider PlureX Follow Oncology recs DVT/GI PPX D/W RN and Patient ok to DC from our standpoint with home oxygen BRANDY MATTHEWS MD May 13, 2021 12:14
[2021-05-13] MEDS: IV RINGERS,LACTATED 1000ML 1,000 ML IV SCH (13:45)
[2021-05-13] MEDS ORDERED: PRED-220 PO (14:10)
[2021-05-13] MEDS ORDERED: AMOX1TAB61 PO (14:10)
[2021-05-13] MEDS ORDERED: TRAM100T2 PO (14:10)
[2021-05-13] MEDS ORDERED: IPRA3AMP29 NEB (14:41)
--- NOTE | 2021-05-13 14:51 | PDOC3 ---
Discharge Summary Visit Information Date of Admission: May 10, 2021 Date of Discharge: May 13, 2021 Admitting Diagnosis: Acute respiratory failure with hypoxia Final Diagnosis Adenocarcinoma of lung Brief Hospital Course Allergies Allergies Coded Allergies Type Severity Reaction Last Updated Verified No Known Drug Allergies 04/24/21 No Vital Signs Vital Signs Date Time Temp Pulse Resp B/P (MAP) Pulse Ox O2 Delivery O2 Flow Rate FiO2 05/13/21 14:06 94 Nasal Cannula 4.0 05/13/21 11:00 97.5 116 22 136/75 (95) 97.5 Lab Results Laboratory Tests Test 05/13/21 08:15 Sodium Level 139 mmol/L (136-145) Potassium Level 3.9 mmol/L (3.5-5.1) Chloride Level 102 mmol/L (98-107) Carbon Dioxide Level 29 mmol/L (21-32) Anion Gap 8 (6-14) Blood Urea Nitrogen 16 mg/dL (7-20) Creatinine 0.7 mg/dL (0.6-1.0) Estimated GFR (Cockcroft-Gault) 83.7 BUN/Creatinine Ratio 23 (6-20) Glucose Level 132 mg/dL (70-99) Calcium Level 9.0 mg/dL (8.5-10.1) Magnesium Level 2.1 mg/dL (1.8-2.4) Total Bilirubin 0.3 mg/dL (0.2-1.0) Aspartate Amino Transf (AST/SGOT) 32 U/L (15-37) Alanine Aminotransferase (ALT/SGPT) 41 U/L (14-59) Alkaline Phosphatase 93 U/L (46-116) Total Protein 6.2 g/dL (6.4-8.2) Albumin 2.7 g/dL (3.4-5.0) Albumin/Globulin Ratio 0.8 (1.0-1.7) Laboratory Tests Test 05/13/21 08:15 Sodium Level 139 mmol/L (136-145) Potassium Level 3.9 mmol/L (3.5-5.1) Chloride Level 102 mmol/L (98-107) Carbon Dioxide Level 29 mmol/L (21-32) Anion Gap 8 (6-14) Blood Urea Nitrogen 16 mg/dL (7-20) Creatinine 0.7 mg/dL (0.6-1.0) Estimated GFR (Cockcroft-Gault) 83.7 BUN/Creatinine Ratio 23 (6-20) Glucose Level 132 mg/dL (70-99) Calcium Level 9.0 mg/dL (8.5-10.1) Magnesium Level 2.1 mg/dL (1.8-2.4) Total Bilirubin 0.3 mg/dL (0.2-1.0) Aspartate Amino Transf (AST/SGOT) 32 U/L (15-37) Alanine Aminotransferase (ALT/SGPT) 41 U/L (14-59) Alkaline Phosphatase 93 U/L (46-116) Total Protein 6.2 g/dL (6.4-8.2) Albumin 2.7 g/dL (3.4-5.0) Albumin/Globulin Ratio 0.8 (1.0-1.7) Brief Hospital Course Ms Cheatham is a 65yo F w/ PMHx breast cancer (s/p mastectomy left breast 1990 and right breast 2012 - was on tamoxifen, now off. no chemo or radiation therapy), smoker, and recent diagnosis of right lung adenocarcinoma who presents as a direct admission I excepted from Dr. Christopher device oncology office for worsening left upper extremity and neck swelling and pain with bilateral lower extremity and shortness of breath. She has had increasing shortness of breath, lump in her left neck swelling of left arm for the past couple of months. Her shortness of breath and swelling comes and goes for about the past 4 months. She was admitted 04/24 to 04/26/2021 for similar symptoms and underwent right lung biopsy which returned positive for adenocarcinoma and had hematology oncology and radiation oncology consultation. CT chest with contrast revealed right upper lobe mass measuring 4.8 x 5.5 cm concerning for malignancy as well as numerous enlarged prevascular and pretracheal lymph nodes which cause extrinsic compression of the SVC and the left brachiocephalic vein and a moderate right and small left pleural effusion back on 04/24/[address] abdomen negative for metastatic disease Had thoracentesis with 725cc removed on 04/25/2021 at time of biopsy. She was discharged with improved symptoms. PET CT on 05/05 with FDG-avid right upper lobe mass consistent with malignancy. FDG avid mediastinal and right hilar lymphadenopathy consistent with metastatic disease. Also with increased radiotracer uptake in the lower left neck and left subclavicular lymph nodes, and to a lesser extent in the right supraclavicular region, which may also represent metastatic disease. She has undergone radiation treatment and has plans to initiate chemotherapy but at her oncology visit she significant shortness of breath left upper extremity swelling and bilateral lower extremity swelling came urgently directly admitted. 05/12: Port placed, thoracentesis completed 1.8L. Still on 4L NCO2 Afebrile. Swelling of bilateral lower extremities improved. Left upper extremity still swollen. Lymphedema sleeves were. She still little short of breath on 4 L oxygen. Right basilar crackles noted. She feels improved on the steroids and would really like to go home discussed and based on 6-minute walk needs 4 L/min of oxygen continuously and steroid taper outpatient and she needs to reschedule it her previously canceled chemotherapy appointment for 05/16/2021 Problem list: Left arm swelling and pain -with active cancer no DVT, no brachiocephalic vein compression. Likely lymphedema, consulted OT lymphedema Aggressive adenocarcinoma lung Bilateral lower extremity edema. diastolic CHF due to pulmonary hypertension from lung cancer and COPD. Shortness of breath - appears to have some COPD and definite SVC syndrome. aggressive nebs Right lung cancer - PULMONARY ACINAR ADENOCARCINOMA with mets Neck swelling - elevate arm H/o breast cancer (s/p mastectomy left breast 1990 and right breast 2012 - was on tamoxifen, now off. no chemo or radiation therapy) - metallic objects visible on left on imaging Smoker - counseled on cessation, nicotine patch Recurrent malignant effusion - s/p 1.8L thoracentesis Protein malnutrition, present upon admission. Acute hypoxic respiratory failure - possibly radiation pneumonitis vs bronchitis - steroid taper and augmentin 30 mg prednisone daily and have follow-up with pulmonology Dr. Vaz in the next 2 to 3 weeks Follow-up with Dr. Jj Follow up with Dr. Cardenas Follow-up OT lymphedema. Greater than 30 minutes spent on discharge home with self care and home O2 Discharge Information Condition at Discharge: Improved Follow Up: Weeks (1) Disposition/Orders: D/C to Home Scheduled Amoxicillin/Potassium Clav (Augmentin 875-125 Tablet) 1 Each Tablet, 1 TAB PO BID for pneumonia for 7 Days, #14 Ref 0 Prescribed by: BEVERLY ROSARIO MD on 05/13/21 1410 Ascorbic Acid (Vitamin C) 100 Mg Tablet, 1 TAB PO DAILY for supplement for 30 Days, #30 Ref 0 (Reported) Entered as Reported by: BEN ABDALLA on 04/24/212052 Ipratropium/Albuterol Sulfate (Duoneb 0.5-3(2.5) Mg/3 Ml) 3 Ml Ampul.neb, 3 ML NEB RTQID for Lung Cancer/COPD for 30 Days, #120 Ref 11 Prescribed by: BEVERLY ROSARIO MD on 05/13/21 1441 Lorazepam (Ativan) 2 Mg Tablet, 2 MG PO Q6HRS for pain, (Reported) Entered as Reported by: PIERO ROSEN on 04/26/21 1723 Prednisone (Prednisone ) 10 Mg Tablet, 10 MG PO UD for PREDNISONE TAPER for 20 Days, #65 Ref 0 3 tabs PO BID 5d 2 tabs PO BID 5d 1 tab PO BID 5d 1 tab PO QD 5d Prescribed by: BEVERLY ROSARIO MD on 05/13/21 1410 [vitamin D ] , 1 TAB PO DAILY, (Reported) Entered as Reported by: BEN ABDALLA on 04/24/212053 Scheduled PRN Tramadol Hcl (Tramadol Hcl) 100 Mg Tbmp.24hr, 100 MG PO PRN Q6HRS PRN for PAIN for 6 Days, #24 Ref 0 Prescribed by: BEVERLY ROSARIO MD on 05/13/21 1411 Justicifation of Admission Dx: Justifications for Admission: Justification of Admission Dx: Yes BEVERLY ROSARIO MD May 13, 2021 14:51
[2021-05-13 15:00] VITALS: BP 146/83
--- NOTE | 2021-05-13 17:29 | NUR ---
Discharge Note: SAQIB MOJICA [address] [place] [address] Discharge instructions and discharge home medications reviewed with Patient and a copy given. All questions have been answered and understanding verbalized. The following instructions and handouts were given: Diet, activity, medication list and follow up instructions provided to patient. Oxygen tank provided and patient given information to call oxygen company when they arrive home. Discontinued lines and drains: Peripheral IV discontinued and catheter intact. Patient discharged to Home or Self Care with Family Member via Wheelchair
[2021-05-13] MEDS ORDERED: PSYLLIUM HUSK (SUGAR FREE) 1 PKT PACKET PO SCH (21:00)
== END 2021-05-13 17:15 | disposition home or self-care (01) | DRG 180 ==
LOC: 4 NORTH 13:52
PROVIDERS: ADMIT Internal Medicine; ATTEND Internal Medicine
PROC: B51N1ZZ Fluoroscopy of Left Upper Extremity Veins using Low Osmolar Contrast (ICD-10-PCS; principal; 2021-05-11)
PROC: 0W993ZZ Drainage of Right Pleural Cavity, Percutaneous Approach (ICD-10-PCS; 2021-05-11)
PROC: 0JH63WZ Insertion of Totally Implantable Vascular Access Device into Chest Subcutaneous Tissue and Fascia, Percutaneous Approach (ICD-10-PCS; 2021-05-11)
PROC: 02HV33Z Insertion of Infusion Device into Superior Vena Cava, Percutaneous Approach (ICD-10-PCS; 2021-05-11)
PROC: B5181ZA Fluoroscopy of Superior Vena Cava using Low Osmolar Contrast, Guidance (ICD-10-PCS; 2021-05-11)
PROC: B51N1ZZ Fluoroscopy of Left Upper Extremity Veins using Low Osmolar Contrast (ICD-10-PCS; 2021-05-12)
PROC: 0W993ZZ Drainage of Right Pleural Cavity, Percutaneous Approach (ICD-10-PCS; 2021-05-12)
PROC: 0JH63WZ Insertion of Totally Implantable Vascular Access Device into Chest Subcutaneous Tissue and Fascia, Percutaneous Approach (ICD-10-PCS; 2021-05-12)
DX: C34.91 Malignant neoplasm of unspecified part of right bronchus or lung (principal); J96.01 Acute respiratory failure with hypoxia; J70.0 Acute pulmonary manifestations due to radiation; E46 Unspecified protein-calorie malnutrition; I50.30 Unspecified diastolic (congestive) heart failure; I87.1 Compression of vein; J91.0 Malignant pleural effusion; E87.6 Hypokalemia; F17.210 Nicotine dependence, cigarettes, uncomplicated; I27.20 Pulmonary hypertension, unspecified; J44.9 Chronic obstructive pulmonary disease, unspecified; Z79.810 Long term (current) use of selective estrogen receptor modulators (SERMs); Z85.3 Personal history of malignant neoplasm of breast; Z90.11 Acquired absence of right breast and nipple; Z90.12 Acquired absence of left breast and nipple; Z92.3 Personal history of irradiation; I95.9 Hypotension, unspecified; W88.1XXA Exposure to radioactive isotopes, initial encounter; Y93.89 Activity, other specified; Y92.89 Other specified places as the place of occurrence of the external cause; Y99.8 Other external cause status; Z68.24 Body mass index [BMI] 24.0-24.9, adult
CPT/HCPCS: 32555; 36415; 36561; 36600; 37246; 71045; 75820; 75827; 76937; 77001; 80053; 83615; 83735; 83880; 84157; 85025; 85610; 87071; 87075; 93971; 94618; 94640; 94760; 99152; 99153; C1769; C1892; C1894; G0238; J0696; J1170; J1642; J1644; J2250; J2920; J2930; J3010; J3480; J3490; J7120; Q9967; G0378; J7613; J7626

== ENCOUNTER → 2021-05-22 | Outpatient (CLI) | payer MEDICARE ==
[2021-05-13 15:00] VITALS: BP 146/83
[~2021-05-22] MED LIST changes: +IPRA3AMP29 NEB; +PRED-220 PO
[2021-05-22 10:42] LABS: CALCIUM 8.7 mg/dL (8.5-10.1); CREATININE 0.7 mg/dL (0.6-1.0); GFR 83.7; POTASSIUM 3.3 mmol/L (3.5-5.1)
[2021-05-22 10:49] LABS: BASO % 0 % (0-3); EOS # 0.2 x10^3/uL (0.0-0.7); EOS % 2 % (0-3); HEMATOCRIT 42.3 % (36.0-47.0); HEMOGLOBIN 14.4 g/dL (12.0-15.5); LYMPH # 0.6 x10^3/uL (1.0-4.8); LYMPH % 5 % (24-48); MEAN CORPUSCULAR HEMOGLOBIN 37 pg (25-35); MEAN CORPUSCULAR HGB CONC 34 g/dL (31-37); MEAN CORPUSCULAR VOLUME 107 fL (79-100); MONO # 0.9 x10^3/uL (0.0-1.1); MONO % 8 % (0-9); NEUT # 8.9 x10^3/uL (1.8-7.7); NEUT % 84 % (31-73); PLATELET COUNT 175 x10^3/uL (140-400); RED BLOOD COUNT 3.94 x10^6/uL (3.50-5.40); RED CELL DISTRIBUTION WIDTH 13.2 % (11.5-14.5); WHITE BLOOD COUNT 10.6 x10^3/uL (4.0-11.0)
[2021-05-22 10:50] LABS: ALBUMIN 2.8 g/dL (3.4-5.0); ALBUMIN/GLOBULIN RATIO 0.9 (1.0-1.7); TOTAL BILIRUBIN 0.8 mg/dL (0.2-1.0)
== END ==
LOC: ONCLAB 09:25
PROVIDERS: ATTEND Physician Assistant
DX: C34.11 Malignant neoplasm of upper lobe, right bronchus or lung (principal)
CPT/HCPCS: 36415; 80053; 85025

== ENCOUNTER → 2021-05-29 | Outpatient (CLI) | payer MEDICARE ==
[2021-05-13 15:00] VITALS: BP 146/83
[2021-05-29 09:15] LABS: BASO % 1 % (0-3); EOS # 0.1 x10^3/uL (0.0-0.7); EOS % 2 % (0-3); HEMATOCRIT 37.7 % (36.0-47.0); HEMOGLOBIN 12.9 g/dL (12.0-15.5); LYMPH # 0.2 x10^3/uL (1.0-4.8); LYMPH % 5 % (24-48); MEAN CORPUSCULAR HEMOGLOBIN 37 pg (25-35); MEAN CORPUSCULAR HGB CONC 34 g/dL (31-37); MEAN CORPUSCULAR VOLUME 107 fL (79-100); MONO # 0.4 x10^3/uL (0.0-1.1); MONO % 9 % (0-9); NEUT # 3.6 x10^3/uL (1.8-7.7); NEUT % 84 % (31-73); PLATELET COUNT 134 x10^3/uL (140-400); RED BLOOD COUNT 3.54 x10^6/uL (3.50-5.40); RED CELL DISTRIBUTION WIDTH 12.9 % (11.5-14.5); WHITE BLOOD COUNT 4.3 x10^3/uL (4.0-11.0)
[2021-05-29 09:25] LABS: CALCIUM 8.4 mg/dL (8.5-10.1); CREATININE 0.5 mg/dL (0.6-1.0); GFR 123.4
[2021-05-29 09:32] LABS: ALBUMIN 2.6 g/dL (3.4-5.0); ALBUMIN/GLOBULIN RATIO 0.8 (1.0-1.7); MAGNESIUM 1.9 mg/dL (1.8-2.4); TOTAL BILIRUBIN 1.2 mg/dL (0.2-1.0); TOTAL PROTEIN 5.7 g/dL (6.4-8.2)
== END ==
LOC: ONCLAB 09:03
PROVIDERS: ATTEND Internal Medicine Hematology & Oncology
DX: C34.11 Malignant neoplasm of upper lobe, right bronchus or lung (principal)
CPT/HCPCS: 36415; 80053; 83735; 85025

== ENCOUNTER → 2021-06-06 | Outpatient (CLI) | payer MEDICARE ==
[2021-05-13 15:00] VITALS: BP 146/83
[2021-06-06 09:46] LABS: BASO % 1 % (0-3); EOS % 1 % (0-3); HEMOGLOBIN 11.8 g/dL (12.0-15.5); LYMPH # 0.2 x10^3/uL (1.0-4.8); LYMPH % 11 % (24-48); MEAN CORPUSCULAR HEMOGLOBIN 37 pg (25-35); MEAN CORPUSCULAR HGB CONC 35 g/dL (31-37); MEAN CORPUSCULAR VOLUME 105 fL (79-100); MONO # 0.5 x10^3/uL (0.0-1.1); MONO % 25 % (0-9); NEUT # 1.3 x10^3/uL (1.8-7.7); NEUT % 63 % (31-73); PLATELET COUNT 167 x10^3/uL (140-400); RED BLOOD COUNT 3.24 x10^6/uL (3.50-5.40); RED CELL DISTRIBUTION WIDTH 12.8 % (11.5-14.5); WHITE BLOOD COUNT 2.1 x10^3/uL (4.0-11.0)
[2021-06-06 10:01] LABS: CALCIUM 8.5 mg/dL (8.5-10.1); CREATININE 0.4 mg/dL (0.6-1.0); GFR 159.7; POTASSIUM 3.4 mmol/L (3.5-5.1)
[2021-06-06 10:04] LABS: ALBUMIN 2.4 g/dL (3.4-5.0); ALBUMIN/GLOBULIN RATIO 0.8 (1.0-1.7); MAGNESIUM 1.7 mg/dL (1.8-2.4); TOTAL BILIRUBIN 0.6 mg/dL (0.2-1.0); TOTAL PROTEIN 5.6 g/dL (6.4-8.2)
[2021-06-06 11:23] LABS: % BANDS 23 % (0-9); % BASOS 1 % (0-3); % EOS 1 % (0-5); % LYMPHS 11 % (24-48); % MONOS 22 % (0-10); % SEGS 42 % (35-66); PLT ESTIMATE ADEQUATE (ADEQUATE)
== END ==
LOC: ONCLAB 08:58
PROVIDERS: ATTEND Internal Medicine Hematology & Oncology
DX: C34.11 Malignant neoplasm of upper lobe, right bronchus or lung (principal); J90 Pleural effusion, not elsewhere classified
CPT/HCPCS: 36415; 80053; 83735; 85007; 85025

== ENCOUNTER → 2021-06-07 | Outpatient (CLI) | payer MEDICARE ==
[2021-05-13 15:00] VITALS: BP 146/83
[~2021-06-07] MED LIST changes: +DOCU50CA9 PO; +DOXY100C3 PO; +DRON10CA5 PO; +Dronabinol PO; +LORA0.5T96 PO; +ONDA4TAB7 PO; +PANT20TA2 PO; +TIOT18CA IH; +[UNRECOGNIZED DRUG - CODE]
--- NOTE | 2021-06-07 14:33 | RAD ---
And EXAM: XR CHEST 2V 06/07/2021 11:03 AM CLINICAL INDICATION: Effusion COMPARISON: Chest radiograph 09/20/2021 TECHNIQUE: PA and lateral views of the chest FINDINGS: There is a new left Port-A-Cath with tip at the superior cavoatrial junction. The cardiac silhouette is partially obscured. There are moderate bilateral pleural effusions, mildly decreased on the right and unchanged on the left. Decreased right upper lobe opacities with persistent underlying mass. Mild diffuse interstitial prominence. Surgical clips in the left axilla. No acute osseous abno rmality. IMPRESSION: 3. Moderate bilateral pleural effusions, slightly decreased on the right and unchanged on the left. 2. Decreased right upper lobe opacities with persistent underlying mass. Electronically signed by: Leonor Ventura MD (06/07/2021 2:30 PM) [id number]
== END ==
LOC: RAD 10:27
PROVIDERS: ATTEND Internal Medicine Pulmonary Disease
DX: J90 Pleural effusion, not elsewhere classified (principal); J98.4 Other disorders of lung
CPT/HCPCS: 71046

== ENCOUNTER → 2021-06-12 | Outpatient (CLI) | payer SELFPAY ==
[2021-05-13 15:00] VITALS: BP 146/83
[~2021-06-12] MED LIST changes: -DOCU50CA9 PO; -DOXY100C3 PO; -DRON10CA5 PO; -Dronabinol PO; -LORA0.5T96 PO; -ONDA4TAB7 PO; -PANT20TA2 PO; -TIOT18CA IH; -[UNRECOGNIZED DRUG - CODE]
[2021-06-12 10:02] LABS: BASO % 1 % (0-3); EOS % 0 % (0-3); HEMATOCRIT 33.5 % (36.0-47.0); HEMOGLOBIN 11.5 g/dL (12.0-15.5); LYMPH # 0.4 x10^3/uL (1.0-4.8); LYMPH % 9 % (24-48); MEAN CORPUSCULAR HEMOGLOBIN 36 pg (25-35); MEAN CORPUSCULAR HGB CONC 34 g/dL (31-37); MEAN CORPUSCULAR VOLUME 106 fL (79-100); MONO # 0.6 x10^3/uL (0.0-1.1); MONO % 16 % (0-9); NEUT # 2.9 x10^3/uL (1.8-7.7); NEUT % 74 % (31-73); PLATELET COUNT 208 x10^3/uL (140-400); RED BLOOD COUNT 3.16 x10^6/uL (3.50-5.40); RED CELL DISTRIBUTION WIDTH 13.1 % (11.5-14.5); WHITE BLOOD COUNT 3.9 x10^3/uL (4.0-11.0)
[2021-06-12 10:30] LABS: CALCIUM 8.4 mg/dL (8.5-10.1); CREATININE 0.6 mg/dL (0.6-1.0); POTASSIUM 4.5 mmol/L (3.5-5.1)
[2021-06-12 10:35] LABS: ALBUMIN 2.1 g/dL (3.4-5.0); ALBUMIN/GLOBULIN RATIO 0.6 (1.0-1.7); MAGNESIUM 1.8 mg/dL (1.8-2.4); TOTAL BILIRUBIN 0.7 mg/dL (0.2-1.0); TOTAL PROTEIN 5.7 g/dL (6.4-8.2)
== END ==
LOC: ONCLAB 09:08
PROVIDERS: ATTEND Internal Medicine Hematology & Oncology
DX: C34.11 Malignant neoplasm of upper lobe, right bronchus or lung (principal)
CPT/HCPCS: 36415; 80053; 83735; 85025

== ENCOUNTER → 2021-06-19 | Outpatient (CLI) | payer SELFPAY ==
[2021-06-19 10:46] LABS: BASO % 0 % (0-3); EOS % 0 % (0-3); HEMATOCRIT 32.1 % (36.0-47.0); LYMPH # 0.3 x10^3/uL (1.0-4.8); LYMPH % 3 % (24-48); MEAN CORPUSCULAR HEMOGLOBIN 36 pg (25-35); MEAN CORPUSCULAR HGB CONC 34 g/dL (31-37); MEAN CORPUSCULAR VOLUME 105 fL (79-100); MONO # 0.3 x10^3/uL (0.0-1.1); MONO % 4 % (0-9); NEUT # 8.4 x10^3/uL (1.8-7.7); NEUT % 93 % (31-73); PLATELET COUNT 86 x10^3/uL (140-400); RED BLOOD COUNT 3.07 x10^6/uL (3.50-5.40); RED CELL DISTRIBUTION WIDTH 13.3 % (11.5-14.5)
[2021-06-19 10:54] LABS: CREATININE 0.6 mg/dL (0.6-1.0); POTASSIUM 4.6 mmol/L (3.5-5.1)
[2021-06-19 11:01] LABS: ALBUMIN 2.4 g/dL (3.4-5.0); ALBUMIN/GLOBULIN RATIO 0.7 (1.0-1.7); TOTAL BILIRUBIN 0.9 mg/dL (0.2-1.0); TOTAL PROTEIN 5.8 g/dL (6.4-8.2)
[2021-06-19 13:56] LABS: % BANDS 11 % (0-9); % BASOS 1 % (0-3); % LYMPHS 4 % (24-48); % MONOS 1 % (0-10); % SEGS 83 % (35-66); PLT ESTIMATE DECREASED (ADEQUATE)
== END ==
LOC: ONCLAB 09:40
PROVIDERS: ATTEND Internal Medicine Hematology & Oncology
DX: C34.11 Malignant neoplasm of upper lobe, right bronchus or lung (principal)
CPT/HCPCS: 36415; 80053; 85007; 85025

== ENCOUNTER → 2021-06-28 | Outpatient (CLI) | payer MEDICARE ==
[~2021-06-28] MED LIST changes: +LORA0.5T96 PO; +TIOT18CA IH
--- NOTE | 2021-06-28 10:15 | RAD ---
EXAM: ULTRASOUND ABDOMEN COMPLETE CLINICAL HISTORY: Elevated liver enzymes COMPARISON: None available. TECHNIQUE: Ultrasound of the upper abdomen was performed. FINDINGS: The pancreas, aorta, IVC are not well-visualized due to bowel gas. The liver length measures 14.8 cm. Mild increased echogenicity identified in the liver likely mild hepatic steatosis. The common bile d uct is 2.1 cm in transverse dimension. The gallbladder wall thickness measures 1.6 mm. The gallbladde r is mildly distended. Multiple echogenicities identified within the gallbladder likely gallstones wi th sludge. The right kidney measures 10.0 x 3.9 x 4.5 cm. The left kidney measures 10.0 x 3.7 x 5.0 c m. There is a cystic structure identified in the left kidney measuring 2.1 cm likely a cyst. The sple en measures 8.2 cm in length. Partially visualized right pleural effusion. IMPRESSION: 1.Cholelithiasis with sludge within the gallbladder. 2. 2.1 cm cyst left kidney. 3. Partially visualized right pleural effusion. 4. Hepatic steatosis. Electronically signed by: Spike Jiménez MD (06/28/2021 10:12 AM) [id number]
== END ==
LOC: US 09:13
PROVIDERS: ATTEND Internal Medicine Hematology & Oncology
DX: K76.0 Fatty (change of) liver, not elsewhere classified (principal); K80.20 Calculus of gallbladder without cholecystitis without obstruction; N28.1 Cyst of kidney, acquired; R74.8 Abnormal levels of other serum enzymes; N32.89 Other specified disorders of bladder; J90 Pleural effusion, not elsewhere classified
CPT/HCPCS: 76700

== ENCOUNTER → 2021-07-12 | Outpatient (CLI) | payer MEDICARE ==
[2021-07-04 13:11] VITALS: BP 110/61
[~2021-07-12] MED LIST changes: +DOXY100C3 PO; +DRON10CA5 PO; +Dronabinol PO
[2021-07-12 09:58] LABS: BASO % 1 % (0-3); EOS # 0.1 x10^3/uL (0.0-0.7); EOS % 2 % (0-3); HEMATOCRIT 26.1 % (36.0-47.0); LYMPH # 0.8 x10^3/uL (1.0-4.8); LYMPH % 20 % (24-48); MEAN CORPUSCULAR HEMOGLOBIN 35 pg (25-35); MEAN CORPUSCULAR HGB CONC 35 g/dL (31-37); MEAN CORPUSCULAR VOLUME 102 fL (79-100); MONO # 0.4 x10^3/uL (0.0-1.1); MONO % 11 % (0-9); NEUT # 2.6 x10^3/uL (1.8-7.7); NEUT % 66 % (31-73); PLATELET COUNT 301 x10^3/uL (140-400); RED BLOOD COUNT 2.56 x10^6/uL (3.50-5.40); RED CELL DISTRIBUTION WIDTH 17.1 % (11.5-14.5); WHITE BLOOD COUNT 3.9 x10^3/uL (4.0-11.0)
[2021-07-12 10:13] LABS: CALCIUM 8.9 mg/dL (8.5-10.1); CREATININE 0.7 mg/dL (0.6-1.0); GFR 83.7; POTASSIUM 3.6 mmol/L (3.5-5.1)
[2021-07-12 10:21] LABS: ALBUMIN 2.1 g/dL (3.4-5.0); ALBUMIN/GLOBULIN RATIO 0.6 (1.0-1.7); MAGNESIUM 1.7 mg/dL (1.8-2.4); TOTAL BILIRUBIN 0.6 mg/dL (0.2-1.0); TOTAL PROTEIN 5.8 g/dL (6.4-8.2)
[2021-07-12 13:31] LABS: % ATYL 1 % (0-0); % BANDS 5 % (0-9); % EOS 1 % (0-5); % LYMPHS 17 % (24-48); % MONOS 14 % (0-10); % SEGS 62 % (35-66)
[2021-07-12 13:32] LABS: ANISOCYTOSIS SLIGHT; PLT ESTIMATE ADEQUATE (ADEQUATE); POLYCHROMASIA SLIGHT
[2021-07-12 15:06] LABS: BF CLARITY CLEAR; BF COLOR YELLOW; BF MON % 88 %; BF OTHER % 1 %; BF PMN % 11 %; BF RBC COUNT 70 /cmm (Not Established); BF SOURCE PLEURAL; BF WBC COUNT 345 /cmm (Not Established)
--- NOTE | 2021-07-14 17:11 | PATHOLOGY ---
Note [facility] Accession Number: [id number] TESTS RESULT FLAG UNITS REF RANGE LAB Clinician Provided Cytology Information No. of containers..01 Other (Miscellaneous) Source: RIGHT PLEURAL FLUID DIAGNOSIS: RIGHT PLEURAL FLUID NEGATIVE FOR MALIGNANT CELLS. MESOTHELIAL CELLS ARE PRESENT. THIS INTERPRETATION INCLUDES EVALUATION OF A CELL BLOCK. Signed out by: Anatoliy Acuna MD, Pathologist NPI- [id number] Performed by: Katalina Gomez, Ingot Weigher ([facility]) Gross description: 55ML, CLEAR YELLOW, 1TP 1CB /LCS 07/14/2021 0137 Local FLAG LEGEND: L-Low Normal,H-High Normal,LL-Alert Low,HH-Alert High <-Panic Low,>-Panic High,A-Abnormal,AA-Critical Abnormal Performed at: [address] [place] [address] Anatoliy Acuna MD, Performed at: [facility], [place], [place] [id number] MD Anatoliy Acuna MD Phone: [phone]
== END ==
LOC: ONCLAB 09:18
PROVIDERS: ATTEND Physician Assistant
DX: C34.11 Malignant neoplasm of upper lobe, right bronchus or lung (principal)
CPT/HCPCS: 36415; 80053; 82945; 83615; 83735; 84157; 85007; 85025; 89050

== ENCOUNTER → 2021-07-12 | Outpatient (CLI) | payer MEDICARE ==
[2021-07-04 13:11] VITALS: BP 110/61
--- NOTE | 2021-07-12 15:33 | RAD ---
PA and lateral chest x-ray compared to portable chest radiograph dated June 302020 for lung adeno carcinoma. FINDINGS: Improved aeration the right lung compared to the prior study, with resolved right pleural e ffusion. Vague masslike opacity in the right upper lung is unchanged. Postsurgical changes of the lef t chest and left pleural effusion are again noted. There is a right Pleurx catheter which is new. Lef t Port-A-Cath is unchanged. Heart size within normal limits. IMPRESSION: 1. Persistent moderate left pleural effusion, slightly worse. 2. Resolved right pleural effusion with improved aeration of the right lung status post right Pleurx catheter placement. 3. Stable masslike opacity in the right upper lung. Electronically signed by: Gabriel Abdalla MD (07/12/2021 3:31 PM) [id number]
== END ==
LOC: RAD 10:46
PROVIDERS: ATTEND Physician Assistant
DX: C34.11 Malignant neoplasm of upper lobe, right bronchus or lung (principal); J90 Pleural effusion, not elsewhere classified; R91.8 Other nonspecific abnormal finding of lung field
CPT/HCPCS: 71046

== ENCOUNTER → 2021-07-21 | Outpatient (CLI) | payer MEDICARE ==
[2021-07-04 13:11] VITALS: BP 110/61
[2021-07-21 10:42] LABS: BASO % 1 % (0-3); EOS # 0.1 x10^3/uL (0.0-0.7); EOS % 1 % (0-3); HEMATOCRIT 26.7 % (36.0-47.0); HEMOGLOBIN 9.3 g/dL (12.0-15.5); LYMPH # 0.8 x10^3/uL (1.0-4.8); LYMPH % 13 % (24-48); MEAN CORPUSCULAR HEMOGLOBIN 36 pg (25-35); MEAN CORPUSCULAR HGB CONC 35 g/dL (31-37); MEAN CORPUSCULAR VOLUME 103 fL (79-100); MONO # 0.8 x10^3/uL (0.0-1.1); MONO % 14 % (0-9); NEUT # 4.3 x10^3/uL (1.8-7.7); NEUT % 72 % (31-73); PLATELET COUNT 291 x10^3/uL (140-400); RED BLOOD COUNT 2.59 x10^6/uL (3.50-5.40); RED CELL DISTRIBUTION WIDTH 20.3 % (11.5-14.5)
[2021-07-21 10:55] LABS: CALCIUM 8.4 mg/dL (8.5-10.1); CREATININE 0.8 mg/dL (0.6-1.0); GFR 71.8; POTASSIUM 3.5 mmol/L (3.5-5.1)
[2021-07-21 10:59] LABS: ALBUMIN 1.8 g/dL (3.4-5.0); ALBUMIN/GLOBULIN RATIO 0.5 (1.0-1.7); MAGNESIUM 1.8 mg/dL (1.8-2.4); TOTAL BILIRUBIN 0.6 mg/dL (0.2-1.0); TOTAL PROTEIN 5.5 g/dL (6.4-8.2)
[2021-07-21 11:56] LABS: % LYMPHS 14 % (24-48); % MONOS 9 % (0-10); % SEGS 77 % (35-66); PLT ESTIMATE ADEQUATE (ADEQUATE)
== END ==
LOC: ONCLAB 10:15
PROVIDERS: ATTEND Internal Medicine Hematology & Oncology
DX: C34.11 Malignant neoplasm of upper lobe, right bronchus or lung (principal)
CPT/HCPCS: 36415; 80053; 83735; 85007; 85025

== ENCOUNTER → 2021-07-26 | Outpatient (CLI) | payer MEDICARE ==
[2021-07-04 13:11] VITALS: BP 110/61
[~2021-07-26] MED LIST changes: +CONTRAST GIVEN. MC PRN; +HEPARIN PF 500 UNIT/5 ML DISP.SYRIN. IVP ONE; +IOHEXOL 240 MG/ML 50ML VIAL. PO ONE; +IOHEXOL 300 MG/ML 100ML VIAL. IV ONE
--- NOTE | 2021-07-26 15:49 | RAD ---
EXAM: Chest, abdomen and pelvis CT with intravenous contrast. HISTORY: Lung cancer. TECHNIQUE: Computed tomographic images of the chest and abdomen and pelvis were obtained following th e administration of intravenous contrast. Multiplanar reformatting was performed. *One or more of the following individualized dose reduction techniques were utilized for this examina tion: 1. Automated exposure control. 2. Adjustment of the mA and/or kV according to patient size. 3. Use of iterative reconstruction technique. COMPARISON: 06/30/2021 and 04/26/2021. FINDINGS: Chest: There has been interval decrease in masslike opacity within the right upper lobe con taining internal lucency. This extends to the right hilum. The masslike portion of this lesion measur es 4.0 cm. There is thickening of the traversing right suprahilar bronchi and there are additional ma sslike opacities within the right lung apex which may be due to postobstructive infiltrate. There is superimposed biapical pleural parenchymal scarring. There are moderate left and small right pleural effusions, the latter of which contains a pleural fazal inage catheter. There is no pneumothorax. There is emphysema. There is multifocal bilateral left ante rior upper lobe predominant pleural parenchymal scarring. There is partial left lower lobe collapse. There are peripherally enhancing hypodense lesions within the anterior mediastinum to the right of mi dline and right paratracheal distribution, likely due to centrally necrotic lymphadenopathy. The larg est of these measures 4.0 cm compared to a measurement of 4.9 cm on the prior exam. This is decreased compared to the prior study. The heart is normal in size. There is a port catheter within the right atrium. There is a small pericardial effusion. There are implanted breast prostheses. There are maste ctomy changes. There has been left axillary lymph node dissection. Abdomen and pelvis: There is hypodensity within the liver along the falciform ligament, likely due to geographic fatty infiltration. No convincing suspicious hepatic lesion is seen. The gallbladder, archuleta creas, spleen and adrenal glands are unremarkable. There is a simple appearing left renal cyst. Follo w-up is not routinely performed for simple cysts. There is no bowel obstruction. There is colonic diverticulosis. There is no convincing diverticulitis . The uterus is unremarkable. There are bilateral bladder diverticula, measuring 6.7 cm on the left a nd 4.4 cm on the right. The ovaries are obscured. There is calcified atherosclerotic plaque involving the aorta. No pathologically enlarged lymph node is seen. There is no acute or suspicious osseous le nilson. IMPRESSION: 1. Slight interval decrease in masslike opacity within the right upper lobe extending to the right hi lum and overlying pleura. This is likely due to interval treatment response or post therapeutic ruiz es. There is also been interval decrease in suspected centrally necrotic with central lymphadenopathy , favoring treatment response. There is also stable right suprahilar bronchial wall thickening due to known neoplasm or treatment changes. 2. Stable masslike right apical opacities superimposed on pleural parenchymal scarring, likely neopla stic or due to post obstructive infiltrate. 3. Decrease in a small right pleural effusion status post pleural catheter placement. There has been interval increase in a moderate left pleural effusion. There is a stable small pericardial effusion. 4. Partial left lower lobe collapse. 5. Emphysema. 6. Colonic diverticulosis. 7. Large bilateral urinary bladder are particular. 8. Suspected geographic fatty infiltration of the liver along the falciform ligament. No convincing s uspicious hepatic lesion is seen. Electronically signed by: Di Sanon MD (07/26/2021 3:46 PM) [id number]
== END ==
LOC: CT 13:29
PROVIDERS: ATTEND Internal Medicine Hematology & Oncology
DX: C34.11 Malignant neoplasm of upper lobe, right bronchus or lung (principal); J90 Pleural effusion, not elsewhere classified; J43.9 Emphysema, unspecified; J98.19 Other pulmonary collapse; J98.4 Other disorders of lung; K57.30 Diverticulosis of large intestine without perforation or abscess without bleeding; I31.3 Pericardial effusion (noninflammatory); N32.3 Diverticulum of bladder; I70.0 Atherosclerosis of aorta
CPT/HCPCS: 71260; 74177; J1642; Q9966; Q9967

== ENCOUNTER → 2021-08-01 | Outpatient (CLI) | payer MEDICARE ==
[2021-07-04 13:11] VITALS: BP 110/61
[~2021-08-01] MED LIST changes: -CONTRAST GIVEN. MC PRN; -HEPARIN PF 500 UNIT/5 ML DISP.SYRIN. IVP ONE; -IOHEXOL 240 MG/ML 50ML VIAL. PO ONE; -IOHEXOL 300 MG/ML 100ML VIAL. IV ONE
[2021-08-01 14:58] LABS: BILIRUBIN,URINE NEGATIVE (NEG); CLARITY,URINE TURBID; COLOR,URINE YELLOW; NITRITE,URINE NEGATIVE (NEG); PROTEIN,URINE 30 mg/dL (NEG-TRACE); UROBILINOGEN,URINE 0.2 mg/dL (0.2 mg/dL)
[2021-08-01 15:06] LABS: WBC,URINE TNTC /HPF (0-4)
[2021-08-01 15:07] LABS: RBC,URINE OCC /HPF (0-2); YEAST,URINE PRESENT /HPF
[2021-08-01 15:09] LABS: BACTERIA,URINE FEW /HPF (0-FEW)
== END ==
LOC: ONCLAB 13:46
PROVIDERS: ATTEND Internal Medicine Hematology & Oncology
DX: C34.11 Malignant neoplasm of upper lobe, right bronchus or lung (principal); R30.0 Dysuria
CPT/HCPCS: 81001; 87086

== ENCOUNTER → 2021-08-10 | Day surgery (SDC) | payer MEDICARE ==
[~2021-08-10] VITALS: Ht 171.4 cm; Wt 61.0 kg
[~2021-08-10] MED LIST changes: +LIDOCAINE 1% PF 5 ML VIAL. INJ ONE; +ONDA4TAB7 PO; +PANT20TA2 PO
[2021-08-10 12:59] VITALS: BP 119/73
--- NOTE | 2021-08-10 14:12 | RAD ---
Single view of the chest. 08/10/2021 1:45 PM Indication: Reason: POST THORACENTESIS / Comparison: Chest radiograph July 12, 2021 Findings: No pneumothorax is identified. There is a right-sided Pleurx catheter. There is a left-side d port with tip at the cavoatrial junction. Surgical clips noted in the left axilla. Probable small r esidual left pleural effusion noted. Possible mild effusion or volume loss seen in the right lung bas e. Right upper lobe opacity is decreased in the interim. No acute osseous changes are noted in the in terim. IMPRESSION: 1. No pneumothorax 2. Support lines tubes described 3. Possible mild residual left pleural effusion. Mild residual right basilar effusion or volume loss. 4. Improved right upper lung opacities Electronically signed by: Amado Tapia MD (08/10/2021 2:10 PM) [id number]
--- NOTE | 2021-08-10 18:26 | OP ---
DATE OF SURGERY: 08/10/2021 ATTENDING PHYSICIAN: Dr. Mini Ryan. PROCEDURE: Left-sided thoracentesis. INDICATIONS: The patient with recurrent left-sided pleural effusion, status post PleurX catheter, she followed up in the office, had increasing shortness of breath. Chest x-ray revealed new effusion on the left side. She has been more short of breath. She called my office 2 days ago, we scheduled an outpatient thoracentesis. She denies fever, chills or night sweats. INDICATION FOR THORACENTESIS: Recurrent malignant effusion, increasing shortness of breath. DESCRIPTION OF PROCEDURE: Time-out was performed prior to the procedure. The patient was sat up at the edge of the bed, I percussed dullness to the mid scapular area on the left side. The area was prepped in sterile fashion. I utilized 1% lidocaine to anesthetize the intercostal space. A stab wound was performed. The catheter over needle was inserted into the pleural space. There was free flowing fluid. The catheter was attached to a vacuum bottle and a total of 1000 mL of straw-colored fluid was aspirated. The patient tolerated the procedure well with no immediate complications. IMPRESSION: 1. Suspect malignant pleural effusion on the left. 2. Status post PleurX catheter on the left. ALCIDES DR: Candy TID: [id number] CC: BRENDA MONTOYA MD, ZACH HUFF MD
--- NOTE | 2021-08-15 15:23 | PATHOLOGY ---
Note [facility] Accession Number: [id number] TESTS RESULT FLAG UNITS REF RANGE LAB Clinician Provided Cytology Information No. of containers..01 Other (Miscellaneous) Source: LEFT PLEURAL FLUID DIAGNOSIS: LEFT PLEURAL FLUID INCONCLUSIVE. ATYPICAL CELLS PRESENT, FAVOR REACTIVE MESOTHELIAL CELLS. Signed out by: Cristopher Pichardo MD, Pathologist NPI- [id number] Performed by: Kaatlina Gomez, Corset Maker ([facility]) Gross description: 01 50ML, CLR LG YELLOW, 1 TP /LCS 08/14/2021 3218 Local FLAG LEGEND: L-Low Normal,H-High Normal,LL-Alert Low,HH-Alert High <-Panic Low,>-Panic High,A-Abnormal,AA-Critical Abnormal Performed at: [facility] [place] [address] Anatoliy Acuna MD, [address] [facility] [address] [place] [address] Cristopher Pichardo MD, Performed at: [address], [place], [place] [id number] MD Anatoliy Acuna MD Phone: [phone]
== END | disposition home or self-care (01) ==
LOC: SURG 12:45
PROVIDERS: ATTEND Internal Medicine Pulmonary Disease
DX: J90 Pleural effusion, not elsewhere classified (principal); J44.9 Chronic obstructive pulmonary disease, unspecified; F41.9 Anxiety disorder, unspecified; F32.9 Major depressive disorder, single episode, unspecified; Z85.3 Personal history of malignant neoplasm of breast; Z87.891 Personal history of nicotine dependence; Z79.899 Other long term (current) drug therapy; Z98.890 Other specified postprocedural states; Z72.89 Other problems related to lifestyle; Z88.2 Allergy status to sulfonamides; Z88.6 Allergy status to analgesic agent; Z91.040 Latex allergy status
CPT/HCPCS: 32554; 71045; 88112; 88305; J3490

== ENCOUNTER → 2021-08-17 | Outpatient (CLI) | payer MEDICARE ==
[2021-08-10 12:59] VITALS: BP 119/73
[~2021-08-17] MED LIST changes: -LIDOCAINE 1% PF 5 ML VIAL. INJ ONE
[2021-08-17 13:01] LABS: BASO % 0 % (0-3); EOS # 0.2 x10^3/uL (0.0-0.7); EOS % 2 % (0-3); HEMATOCRIT 33.3 % (36.0-47.0); HEMOGLOBIN 11.3 g/dL (12.0-15.5); LYMPH % 12 % (24-48); MEAN CORPUSCULAR HEMOGLOBIN 37 pg (25-35); MEAN CORPUSCULAR HGB CONC 34 g/dL (31-37); MEAN CORPUSCULAR VOLUME 109 fL (79-100); MONO # 0.6 x10^3/uL (0.0-1.1); MONO % 7 % (0-9); NEUT # 6.7 x10^3/uL (1.8-7.7); NEUT % 79 % (31-73); PLATELET COUNT 328 x10^3/uL (140-400); RED BLOOD COUNT 3.07 x10^6/uL (3.50-5.40); RED CELL DISTRIBUTION WIDTH 19.7 % (11.5-14.5); WHITE BLOOD COUNT 8.4 x10^3/uL (4.0-11.0)
[2021-08-17 13:05] LABS: CALCIUM 8.5 mg/dL (8.5-10.1); CREATININE 0.9 mg/dL (0.6-1.0); GFR 62.6; POTASSIUM 3.9 mmol/L (3.5-5.1)
[2021-08-17 13:11] LABS: ALBUMIN 1.9 g/dL (3.4-5.0); ALBUMIN/GLOBULIN RATIO 0.5 (1.0-1.7); TOTAL BILIRUBIN 0.4 mg/dL (0.2-1.0); TOTAL PROTEIN 5.7 g/dL (6.4-8.2)
== END ==
LOC: ONCLAB 12:35
PROVIDERS: ATTEND Internal Medicine Hematology & Oncology
DX: C34.11 Malignant neoplasm of upper lobe, right bronchus or lung (principal)
CPT/HCPCS: 36415; 80053; 85025

== ENCOUNTER → 2021-08-24 | Outpatient (CLI) | payer MEDICARE ==
[2021-08-10 12:59] VITALS: BP 119/73
--- NOTE | 2021-08-24 15:57 | RAD ---
Single view of the chest. 08/24/2021 3:03 PM Indication: Reason: LUNG ADENOCARCINOMA. Comparison: Chest radiograph August 10, 2021 Findings: There is a left internal jugular port with tip at the cavoatrial junction. Right-sided tunn eled thoracostomy tube noted, in expected position.. Obscuration of the lung bases suggests persisten t small effusions or atelectasis bilaterally. Right upper lung opacity is grossly similar to comparis on study allowing for differences in technique. No pneumothorax is identified. No acute osseous ruiz es identified in the interim. IMPRESSION: Overall similar appearance of the chest including right upper lung opacity and bibasilar opacities Electronically signed by: Amado Tapia MD (08/24/2021 3:55 PM) [id number]
== END ==
LOC: RAD 14:51
PROVIDERS: ATTEND Physician Assistant
DX: C34.11 Malignant neoplasm of upper lobe, right bronchus or lung (principal); Z93.8 Other artificial opening status
CPT/HCPCS: 71046

== ENCOUNTER → 2021-08-31 | Outpatient (CLI) | payer MEDICARE ==
[2021-08-10 12:59] VITALS: BP 119/73
[2021-08-31 14:18] LABS: BASO # 0.1 x10^3/uL (0.0-0.2); BASO % 1 % (0-3); EOS # 0.1 x10^3/uL (0.0-0.7); EOS % 1 % (0-3); HEMATOCRIT 34.7 % (36.0-47.0); HEMOGLOBIN 11.9 g/dL (12.0-15.5); LYMPH # 0.8 x10^3/uL (1.0-4.8); LYMPH % 9 % (24-48); MEAN CORPUSCULAR HEMOGLOBIN 38 pg (25-35); MEAN CORPUSCULAR HGB CONC 34 g/dL (31-37); MEAN CORPUSCULAR VOLUME 110 fL (79-100); MONO # 0.7 x10^3/uL (0.0-1.1); MONO % 8 % (0-9); NEUT # 7.1 x10^3/uL (1.8-7.7); NEUT % 81 % (31-73); PLATELET COUNT 308 x10^3/uL (140-400); RED BLOOD COUNT 3.15 x10^6/uL (3.50-5.40); RED CELL DISTRIBUTION WIDTH 16.7 % (11.5-14.5); WHITE BLOOD COUNT 8.8 x10^3/uL (4.0-11.0)
[2021-08-31 14:29] LABS: CALCIUM 8.4 mg/dL (8.5-10.1); CREATININE 0.7 mg/dL (0.6-1.0); GFR 83.7; POTASSIUM 4.1 mmol/L (3.5-5.1)
[2021-08-31 14:35] LABS: ALBUMIN 1.9 g/dL (3.4-5.0); ALBUMIN/GLOBULIN RATIO 0.5 (1.0-1.7); MAGNESIUM 1.9 mg/dL (1.8-2.4); TOTAL BILIRUBIN 0.4 mg/dL (0.2-1.0); TOTAL PROTEIN 5.5 g/dL (6.4-8.2)
== END ==
LOC: ONCLAB 13:36
PROVIDERS: ATTEND Physician Assistant
DX: C34.11 Malignant neoplasm of upper lobe, right bronchus or lung (principal)
CPT/HCPCS: 36415; 80053; 83735; 85025

== ENCOUNTER → 2021-09-07 | Outpatient (CLI) | payer MEDICARE ==
[2021-08-10 12:59] VITALS: BP 119/73
[2021-09-07 14:23] LABS: ALBUMIN 1.9 g/dL (3.4-5.0); ALBUMIN/GLOBULIN RATIO 0.5 (1.0-1.7); CALCIUM 8.2 mg/dL (8.5-10.1); GFR 55.5; MAGNESIUM 1.8 mg/dL (1.8-2.4); TOTAL BILIRUBIN 0.5 mg/dL (0.2-1.0); TOTAL PROTEIN 5.8 g/dL (6.4-8.2)
[2021-09-07 14:35] LABS: BASO # 0.1 x10^3/uL (0.0-0.2); BASO % 1 % (0-3); EOS % 0 % (0-3); HEMATOCRIT 39.6 % (36.0-47.0); LYMPH # 0.5 x10^3/uL (1.0-4.8); LYMPH % 5 % (24-48); MEAN CORPUSCULAR HEMOGLOBIN 36 pg (25-35); MEAN CORPUSCULAR HGB CONC 33 g/dL (31-37); MEAN CORPUSCULAR VOLUME 110 fL (79-100); MONO # 0.7 x10^3/uL (0.0-1.1); MONO % 7 % (0-9); NEUT # 8.9 x10^3/uL (1.8-7.7); NEUT % 88 % (31-73); PLATELET COUNT 315 x10^3/uL (140-400); RED BLOOD COUNT 3.59 x10^6/uL (3.50-5.40); RED CELL DISTRIBUTION WIDTH 15.3 % (11.5-14.5); WHITE BLOOD COUNT 10.2 x10^3/uL (4.0-11.0)
[2021-09-07 14:49] LABS: POTASSIUM 4.2 mmol/L (3.5-5.1)
[2021-09-07 15:44] LABS: BILIRUBIN,URINE NEGATIVE (NEG); CLARITY,URINE TURBID; COLOR,URINE YELLOW; NITRITE,URINE NEGATIVE (NEG); PH,URINE 5.5 (<5.0-8.0); PROTEIN,URINE 100 mg/dL (NEG-TRACE); UROBILINOGEN,URINE 0.2 mg/dL (0.2 mg/dL)
[2021-09-07 16:22] LABS: BACTERIA,URINE MANY /HPF (0-FEW); RBC,URINE 0 /HPF (0-2); WBC,URINE TNTC /HPF (0-4)
[2021-09-07 16:23] LABS: HYALINE CASTS, URINE MANY /HPF
== END ==
LOC: ONCLAB 13:47
PROVIDERS: ATTEND Internal Medicine Hematology & Oncology
DX: C34.11 Malignant neoplasm of upper lobe, right bronchus or lung (principal); N39.0 Urinary tract infection, site not specified
CPT/HCPCS: 36415; 80053; 81001; 83735; 85025; 87086

== ENCOUNTER → 2021-09-13 | Outpatient (CLI) | payer MEDICARE ==
[2021-08-10 12:59] VITALS: BP 119/73
[~2021-09-13] MED LIST changes: +GADOTERATE 7.5 MMOL/15ML VIAL. IVP ONE
--- NOTE | 2021-09-13 16:42 | KCIC ---
EXAM: MRI BRAIN WITH AND WITHOUT CONTRAST. HISTORY: Lung cancer staging. TECHNIQUE: Magnetic resonance images of the brain were obtained before and after the intravenous admi nistration of 12 mL Clariscan. COMPARISON: 04/26/2021. FINDINGS: There are no enhancing lesions. There is no diffusion restriction. Scattered foci of white matter T2/ FLAIR hyperintensity are nonspecific but likely indicate mild chronic microangiopathic change. Promin ence of the lateral ventricles and hemispheric sulci indicates mild atrophy. The paranasal sinuses are clear. The orbits are unremarkable. The temporal bones are unremarkable. Th e calvarium demonstrates no suspicious lesions. IMPRESSION: 1. No evidence of metastatic disease. 2. Mild chronic microangiopathic white matter change. Electronically signed by: Eduard Luis MD (09/13/2021 4:40 PM) [id number]
== END ==
LOC: KCIC MRI 12:55
PROVIDERS: ATTEND Physician Assistant
DX: C34.11 Malignant neoplasm of upper lobe, right bronchus or lung (principal); G31.9 Degenerative disease of nervous system, unspecified; Z80.3 Family history of malignant neoplasm of breast
CPT/HCPCS: 70553; A9575

== ENCOUNTER → 2021-09-14 | Outpatient (CLI) | payer MEDICARE ==
[2021-08-10 12:59] VITALS: BP 119/73
[~2021-09-14] MED LIST changes: -GADOTERATE 7.5 MMOL/15ML VIAL. IVP ONE
[2021-09-14 12:53] LABS: BASO # 0.1 x10^3/uL (0.0-0.2); BASO % 1 % (0-3); EOS # 0.1 x10^3/uL (0.0-0.7); EOS % 1 % (0-3); HEMATOCRIT 38.1 % (36.0-47.0); LYMPH # 0.6 x10^3/uL (1.0-4.8); LYMPH % 10 % (24-48); MEAN CORPUSCULAR HEMOGLOBIN 37 pg (25-35); MEAN CORPUSCULAR HGB CONC 34 g/dL (31-37); MEAN CORPUSCULAR VOLUME 110 fL (79-100); MONO # 0.5 x10^3/uL (0.0-1.1); MONO % 7 % (0-9); NEUT # 5.1 x10^3/uL (1.8-7.7); NEUT % 81 % (31-73); PLATELET COUNT 238 x10^3/uL (140-400); RED BLOOD COUNT 3.48 x10^6/uL (3.50-5.40); RED CELL DISTRIBUTION WIDTH 15.4 % (11.5-14.5); WHITE BLOOD COUNT 6.4 x10^3/uL (4.0-11.0)
[2021-09-14 13:13] LABS: CALCIUM 7.7 mg/dL (8.5-10.1); CREATININE 0.8 mg/dL (0.6-1.0); GFR 71.8; POTASSIUM 4.1 mmol/L (3.5-5.1)
[2021-09-14 13:17] LABS: ALBUMIN 1.6 g/dL (3.4-5.0); ALBUMIN/GLOBULIN RATIO 0.5 (1.0-1.7); MAGNESIUM 1.8 mg/dL (1.8-2.4); TOTAL BILIRUBIN 0.2 mg/dL (0.2-1.0); TOTAL PROTEIN 5.1 g/dL (6.4-8.2)
== END ==
LOC: ONCLAB 12:24
PROVIDERS: ATTEND Internal Medicine Hematology & Oncology
DX: C34.11 Malignant neoplasm of upper lobe, right bronchus or lung (principal)
CPT/HCPCS: 36415; 80053; 83735; 85025

== ENCOUNTER → 2021-09-25 | Outpatient (CLI) | payer MEDICARE ==
[2021-08-10 12:59] VITALS: BP 119/73
[2021-09-25 15:54] LABS: BASO % 0 % (0-3); EOS # 0.1 x10^3/uL (0.0-0.7); EOS % 1 % (0-3); HEMATOCRIT 39.8 % (36.0-47.0); HEMOGLOBIN 13.2 g/dL (12.0-15.5); LYMPH # 0.5 x10^3/uL (1.0-4.8); LYMPH % 6 % (24-48); MEAN CORPUSCULAR HEMOGLOBIN 36 pg (25-35); MEAN CORPUSCULAR HGB CONC 33 g/dL (31-37); MEAN CORPUSCULAR VOLUME 109 fL (79-100); MONO # 0.4 x10^3/uL (0.0-1.1); MONO % 6 % (0-9); NEUT # 6.6 x10^3/uL (1.8-7.7); NEUT % 87 % (31-73); PLATELET COUNT 232 x10^3/uL (140-400); RED BLOOD COUNT 3.67 x10^6/uL (3.50-5.40); RED CELL DISTRIBUTION WIDTH 14.8 % (11.5-14.5); WHITE BLOOD COUNT 7.6 x10^3/uL (4.0-11.0)
[2021-09-25 16:02] LABS: CALCIUM 8.1 mg/dL (8.5-10.1); CREATININE 0.7 mg/dL (0.6-1.0); GFR 83.7; POTASSIUM 4.3 mmol/L (3.5-5.1)
[2021-09-25 16:08] LABS: ALBUMIN 1.7 g/dL (3.4-5.0); ALBUMIN/GLOBULIN RATIO 0.5 (1.0-1.7); TOTAL BILIRUBIN 0.5 mg/dL (0.2-1.0); TOTAL PROTEIN 5.2 g/dL (6.4-8.2)
== END ==
LOC: ONCLAB 15:39
PROVIDERS: ATTEND Internal Medicine Hematology & Oncology
DX: C34.11 Malignant neoplasm of upper lobe, right bronchus or lung (principal)
CPT/HCPCS: 36415; 80053; 85025; 93971

== ENCOUNTER → 2021-09-25 | Outpatient (CLI) | payer MEDICARE ==
[2021-08-10 12:59] VITALS: BP 119/73
--- NOTE | 2021-09-25 15:01 | RAD ---
EXAM: Left upper extremity venous Doppler sonogram. HISTORY: Pain and swelling. Lung cancer. TECHNIQUE: Spears scale and color Doppler sonographic evaluation of the left upper extremity veins with spectral waveform analysis was performed. FINDINGS: There is normal color flow, normal compressibility and there are normal spectral waveforms in the left upper extremity veins. The left ulnar vein is not seen due to soft tissue edema and the r adial vein is only seen with color Doppler imaging. IMPRESSION: No Doppler evidence of upper extremity venous thrombosis, with limited evaluation of the ulnar and radial veins described above. Soft tissue edema. Electronically signed by: Di Sanon MD (09/25/2021 2:58 PM) [id number]
== END ==
LOC: RAD 13:53
PROVIDERS: ATTEND Physician Assistant
DX: C34.11 Malignant neoplasm of upper lobe, right bronchus or lung (principal); M79.602 Pain in left arm; M79.89 Other specified soft tissue disorders; R60.0 Localized edema
CPT/HCPCS: 93971

== ENCOUNTER → 2021-10-09 | Outpatient (CLI) | payer MEDICARE ==
[2021-08-10 12:59] VITALS: BP 119/73
[2021-10-09 13:18] LABS: BASO % 1 % (0-3); EOS # 0.1 x10^3/uL (0.0-0.7); EOS % 1 % (0-3); HEMATOCRIT 42.8 % (36.0-47.0); HEMOGLOBIN 14.3 g/dL (12.0-15.5); LYMPH # 0.7 x10^3/uL (1.0-4.8); LYMPH % 11 % (24-48); MEAN CORPUSCULAR HEMOGLOBIN 36 pg (25-35); MEAN CORPUSCULAR HGB CONC 33 g/dL (31-37); MEAN CORPUSCULAR VOLUME 107 fL (79-100); MONO # 0.5 x10^3/uL (0.0-1.1); MONO % 8 % (0-9); NEUT # 5.3 x10^3/uL (1.8-7.7); NEUT % 80 % (31-73); PLATELET COUNT 237 x10^3/uL (140-400); RED CELL DISTRIBUTION WIDTH 15.2 % (11.5-14.5); WHITE BLOOD COUNT 6.7 x10^3/uL (4.0-11.0)
[2021-10-09 13:20] LABS: CREATININE 0.7 mg/dL (0.6-1.0); GFR 83.7; POTASSIUM 4.2 mmol/L (3.5-5.1)
[2021-10-09 13:29] LABS: ALBUMIN/GLOBULIN RATIO 0.6 (1.0-1.7); MAGNESIUM 1.4 mg/dL (1.8-2.4); TOTAL BILIRUBIN 0.6 mg/dL (0.2-1.0); TOTAL PROTEIN 5.5 g/dL (6.4-8.2)
[2021-10-09 14:39] LABS: AMYLASE 13 U/L (25-115); LIPASE 33 U/L (73-393)
== END ==
LOC: ONCLAB 12:38
PROVIDERS: ATTEND Physician Assistant
DX: C34.11 Malignant neoplasm of upper lobe, right bronchus or lung (principal)
CPT/HCPCS: 36415; 80053; 82150; 83690; 83735; 85025

== ENCOUNTER → 2021-10-10 | Outpatient (CLI) | payer MEDICARE ==
[2021-08-10 12:59] VITALS: BP 119/73
[2021-10-10 10:00] LABS: CALCIUM 7.9 mg/dL (8.5-10.1); CREATININE 0.6 mg/dL (0.6-1.0); POTASSIUM 3.8 mmol/L (3.5-5.1)
[2021-10-10 10:03] LABS: ALBUMIN 1.8 g/dL (3.4-5.0); ALBUMIN/GLOBULIN RATIO 0.5 (1.0-1.7); TOTAL BILIRUBIN 0.6 mg/dL (0.2-1.0); TOTAL PROTEIN 5.2 g/dL (6.4-8.2)
== END ==
LOC: ONCLAB 09:05
PROVIDERS: ATTEND Physician Assistant
DX: E83.42 Hypomagnesemia (principal)
CPT/HCPCS: 36415; 80053

== ENCOUNTER → 2021-10-10 | Outpatient (CLI) | payer MEDICARE ==
[2021-08-10 12:59] VITALS: BP 119/73
--- NOTE | 2021-10-10 09:05 | RAD ---
INDICATION : Reason: ELEVATED LIVER ENZYMES; NAUSEA/VOMITING; LUNG ADENOCARCINOMA / Spl. Instructions : / History: COMPARISON: CT from July 26, 2021 TECHNIQUE: Multiple ultrasound images obtained through the abdomen in grayscale and color. FINDINGS: Pancreas: Largely obscured by bowel gas Liver: Echogenic. Gallbladder: Gallstones. Distended measuring up to about 97 x 32 mm. IVC: Partially distended at level of liver. Common Bile Duct: Not dilated. Right Kidney: No hydronephrosis. Small right-sided pleural effusion. IMPRESSION: * Liver is echogenic. Nonspecific but can be seen with fatty infiltration. * Gallstones and sludge with distended gallbladder. Given the degree of distention would correlate w ith symptoms to ensure there is no hydrops contributing. Electronically signed by: Adrian Newby MD (10/10/2021 9:03 AM) [id number]
== END ==
LOC: US 07:56
PROVIDERS: ATTEND Physician Assistant
DX: C34.11 Malignant neoplasm of upper lobe, right bronchus or lung (principal); K80.80 Other cholelithiasis without obstruction; J90 Pleural effusion, not elsewhere classified; R94.5 Abnormal results of liver function studies; R11.2 Nausea with vomiting, unspecified
CPT/HCPCS: 76705

== ENCOUNTER → 2021-10-18 | Outpatient (CLI) | payer MEDICARE ==
[2021-08-10 12:59] VITALS: BP 119/73
[2021-10-18 13:09] LABS: BASO % 1 % (0-3); EOS # 0.1 x10^3/uL (0.0-0.7); EOS % 1 % (0-3); HEMATOCRIT 36.1 % (36.0-47.0); HEMOGLOBIN 12.5 g/dL (12.0-15.5); LYMPH # 0.7 x10^3/uL (1.0-4.8); LYMPH % 9 % (24-48); MEAN CORPUSCULAR HEMOGLOBIN 37 pg (25-35); MEAN CORPUSCULAR HGB CONC 35 g/dL (31-37); MEAN CORPUSCULAR VOLUME 107 fL (79-100); MONO # 0.9 x10^3/uL (0.0-1.1); MONO % 11 % (0-9); NEUT # 6.1 x10^3/uL (1.8-7.7); NEUT % 78 % (31-73); PLATELET COUNT 201 x10^3/uL (140-400); RED BLOOD COUNT 3.38 x10^6/uL (3.50-5.40); RED CELL DISTRIBUTION WIDTH 15.5 % (11.5-14.5); WHITE BLOOD COUNT 7.7 x10^3/uL (4.0-11.0)
[2021-10-18 13:18] LABS: CALCIUM 7.9 mg/dL (8.5-10.1); CREATININE 0.6 mg/dL (0.6-1.0); POTASSIUM 3.7 mmol/L (3.5-5.1)
[2021-10-18 13:22] LABS: ALBUMIN 1.7 g/dL (3.4-5.0); ALBUMIN/GLOBULIN RATIO 0.5 (1.0-1.7); MAGNESIUM 1.6 mg/dL (1.8-2.4); TOTAL BILIRUBIN 0.5 mg/dL (0.2-1.0)
== END ==
LOC: ONCLAB 12:41
PROVIDERS: ATTEND Physician Assistant
DX: C34.11 Malignant neoplasm of upper lobe, right bronchus or lung (principal)
CPT/HCPCS: 36415; 80053; 83615; 83735; 84443; 85025

== ENCOUNTER → 2021-10-31 | Outpatient (CLI) | payer MEDICARE ==
[2021-08-10 12:59] VITALS: BP 119/73
[2021-10-31 14:22] LABS: BASO # 0.1 x10^3/uL (0.0-0.2); BASO % 1 % (0-3); EOS # 0.1 x10^3/uL (0.0-0.7); EOS % 1 % (0-3); HEMATOCRIT 37.9 % (36.0-47.0); HEMOGLOBIN 12.9 g/dL (12.0-15.5); LYMPH # 0.5 x10^3/uL (1.0-4.8); LYMPH % 6 % (24-48); MEAN CORPUSCULAR HEMOGLOBIN 36 pg (25-35); MEAN CORPUSCULAR HGB CONC 34 g/dL (31-37); MEAN CORPUSCULAR VOLUME 105 fL (79-100); MONO # 0.5 x10^3/uL (0.0-1.1); MONO % 6 % (0-9); NEUT # 7.9 x10^3/uL (1.8-7.7); NEUT % 87 % (31-73); PLATELET COUNT 313 x10^3/uL (140-400); RED CELL DISTRIBUTION WIDTH 15.6 % (11.5-14.5); WHITE BLOOD COUNT 9.1 x10^3/uL (4.0-11.0)
[2021-10-31 14:41] LABS: CALCIUM 8.2 mg/dL (8.5-10.1); CREATININE 0.8 mg/dL (0.6-1.0); GFR 71.8; POTASSIUM 3.9 mmol/L (3.5-5.1)
[2021-10-31 14:44] LABS: ALBUMIN 1.7 g/dL (3.4-5.0); ALBUMIN/GLOBULIN RATIO 0.5 (1.0-1.7); TOTAL BILIRUBIN 0.6 mg/dL (0.2-1.0); TOTAL PROTEIN 5.4 g/dL (6.4-8.2)
== END ==
LOC: ONCLAB 13:44
PROVIDERS: ATTEND Internal Medicine Hematology & Oncology
DX: C34.11 Malignant neoplasm of upper lobe, right bronchus or lung (principal)
CPT/HCPCS: 36415; 80053; 83735; 85025

== ENCOUNTER → 2021-11-09 | Outpatient (CLI) | payer MEDICARE ==
[2021-08-10 12:59] VITALS: BP 119/73
[~2021-11-09] MED LIST changes: +CONTRAST GIVEN. MC PRN; +HEPARIN PF 500 UNIT/5 ML DISP.SYRIN. IVP ONE; +IOHEXOL 240 MG/ML 50ML VIAL. PO ONE; +IOHEXOL 300 MG/ML 100ML VIAL. IV ONE
--- NOTE | 2021-11-09 13:21 | RAD ---
CT of the chest, abdomen, and pelvis 11/09/2021 INDICATION: History of lung cancer. COMPARISON STUDY: CT of the chest abdomen and pelvis July 26, 2021 TECHNIQUE: Multidetector CT imaging of the chest, abdomen, and pelvis was obtained following the admi nistration of contrast. FINDINGS: Heart size is normal. Small pericardial effusion is seen. Left internal jugular port noted with tip at the cavoatrial junction. No pathologically enlarged mediastinal adenopathy is identified. There are large bilateral pleural effusions with underlying atelectasis. Centrilobular emphysematous changes are noted. On the right side there is a tunneled thoracostomy tube. Given the size of left e ffusion, correlate with catheter function.. There is slight interval increase in the irregular area o f masslike consolidation in the right upper lobe (axial image 16 of 63). Mother irregular areas of co nsolidation in the right upper lobe mildly more prominent. Findings could relate to increased effusio n and subsequent increase in volume loss. Continued follow-up recommended. No pneumothorax is seen. Solid viscera of the abdomen demonstrate no acute abnormality. There is no bowel obstruction. No acut e inflammatory change involving the bowel is identified. 2 large bladder diverticulum is noted. Appea gadiel is similar to comparison study. There is some thickening of the distal sigmoid colon. Nonspecif ic could represent a mild colitis. No significant free fluid in the abdomen pelvis is seen. IMPRESSION: 1. Interval mild apparent increase in masslike consolidation in the right upper lobe. This may be aug mented by presence of large right pleural effusion and subsequent increase in surrounding volume loss /atelectasis. 2. Large bilateral pleural effusions. Right-sided tunneled thoracostomy tube in place. Correlate with catheter function. Small pericardial effusion 3. Thickening of the distal sigmoid colon. Mild colitis is possible. Correlate clinically findings. C onsider endoscopy as clinically indicated. Attention on follow-up exams recommended. CT DOSING PQRS STATEMENT: One or more of the following individualized dose reduction techniques were utilized for this examinat ion: 1. Automated exposure control 2. Adjustment of the mA and/or kV according to patient size 3. Use of iterative reconstruction technique Electronically signed by: Amado Tapia MD (11/09/2021 1:18 PM) [id number]
--- NOTE | 2021-11-09 14:54 | RAD ---
Bone scan 11/09/2021 INDICATION: History of lung cancer. COMPARISON STUDY: CT of the chest abdomen and pelvis, earlier today Discussion: Imaging of the entire body was performed following the intravenous administration of 24.9 mCi of MDP. No focal uptake concerning for metastatic disease is identified. Abnormal configuration of the bladder consistent with known bladder diverticula is noted. IMPRESSION: No scintigraphic evidence of metastatic osseous disease Electronically signed by: Amado Tapia MD (11/09/2021 2:51 PM) [id number]
== END ==
LOC: NM 09:55
PROVIDERS: ATTEND Physician Assistant
DX: R91.8 Other nonspecific abnormal finding of lung field (principal); J90 Pleural effusion, not elsewhere classified; K63.89 Other specified diseases of intestine; J43.2 Centrilobular emphysema; I31.3 Pericardial effusion (noninflammatory); C34.11 Malignant neoplasm of upper lobe, right bronchus or lung
CPT/HCPCS: 71260; 74177; 78306; A9503; J1642; Q9966; Q9967

== ENCOUNTER 2021-11-17 09:06 | Outpatient (CLI) | payer MEDICARE ==
[~2021-11-17] VITALS: Ht 170.2 cm; Wt 56.8 kg
[2021-11-17] VITALS (7 sets, daily range): BP systolic 112–133; BP diastolic 68–81
[~2021-11-17 09:06] MED LIST changes: -CONTRAST GIVEN. MC PRN; -HEPARIN PF 500 UNIT/5 ML DISP.SYRIN. IVP ONE; -IOHEXOL 240 MG/ML 50ML VIAL. PO ONE
[2021-11-17] MEDS ORDERED: IOHEXOL 300 MG/ML 100ML VIAL. IV ONE (09:15)
[2021-11-17 09:41] LABS: PROTHROMBIN TIME PATIENT 12.9 SEC (11.7-14.0)
--- NOTE | 2021-11-17 10:11 | RAD ---
PQRS Compliance Statement: One or more of the following individualized dose reduction techniques were utilized for this examinat ion: 1. Automated exposure control 2. Adjustment of the mA and/or kV according to patient size 3. Use of iterative reconstruction technique CT NECK SOFT TISSUE WITHOUT AND WITH IV CONTRAST 11/17/2021 9:05 AM Indication: Lymphadenopathy COMPARISON: None available. TECHNIQUE: Multiple axial CT images of the neck were obtained before and after administration of intr avenous contrast. Coronal and sagittal reformats are provided. FINDINGS: No suspicious abnormality identified involving the visualized portions of the brain parenchyma and po sterior fossa. The skull base is normal. The visualized paranasal sinuses are well aerated. Orbital c ontents appear normal. The sella turcica and cavernous sinus regions appear intact. The mastoid air c ells are well aerated. The fossa of Rosenmuller is normal. Nasopharynx is normal in appearance. The parotid space contents a nd tensile tester space contents appear intact. The parapharyngeal spaces are normal. The submandibular contents appear intact. Oral cavity, floor of mouth and sublingual space appear normal.. Oropharynx is normal in appearance. The epiglottis, aryepiglottic folds, and piriform sinuses are nor mal. The vallecula appears normal. The larynx and trachea are normal. The thyroid gland is normal in appearance. Calcified and noncalcified atheromatous plaque is identified at the left carotid bifurcation without significant luminal stenosis. There is a left supraclavicular lymph node measuring 1.2 x 1.3 cm with spiculated margins. Right upper lobe consolidative changes with spiculated margins appears similar to the prior examinati on from 11/09/2021. Spiculated nodular opacity measures up to 2.4 x 2.5 cm in transaxial dimensions. M oderate bilateral pleural effusions, left greater than right unchanged. Centrilobular pulmonary emphy sema demonstrated. Left chest wall infusion port catheter is noted. Bilateral breast prosthesis noted . No suspicious osseous abnormality. IMPRESSION: Spiculated left supraclavicular lymph node is suspicious for metastatic disease measuring 1.2 x 1.3 c m. Redemonstration of a spiculated right upper lobe mass without significant interval change. Electronically signed by: Carmina Moore MD (11/17/2021 10:08 AM) [facility]
[2021-11-17] MEDS ORDERED: LIDOCAINE WITH 8.4% SOD BICARB 3 ML DISP.SYRIN. ONE (10:17)
[2021-11-17] MEDS ORDERED: LIDOCAINE WITH 8.4% SOD BICARB 3 ML DISP.SYRIN. IJ ONE (10:45)
[2021-11-17] MEDS ORDERED: HEPARIN PF 500 UNIT/5 ML DISP.SYRIN. IVP ONE (12:12)
--- NOTE | 2021-11-17 12:23 | RAD ---
Site ID: [id number] EXAMINATION: Ultrasound guided thoracentesis (CPT 63478). INDICATION: 66 years Female Reason: Left Pleural Effusion CONSENT: Informed consent was obtained from the patient. The risks, benefits, potential complications and alternatives were reviewed and all questions answered to the patient's satisfaction. FINDINGS: Left nonloculated appearing pleural effusion. PROCEDURE: After maximal barrier technique sterile preparation and draping, 1% lidocaine was utilized for local anesthesia. An appropriate intercostal approach is selected based on preliminary scanning with ultrasound. Under live visualization with ultrasound, 5 Guamanian drainage catheter is introduced with trocar technique in to the pleural space. Image of proper location of the needle is documented. The needle is removed and the sheath is left in the pleural space. A total of 1160 mL of serous fluid is drained. The sheath is removed at the end of the drainage proce dure. Fluid sample is sent to the lab for analysis. The patient tolerated the procedure well with no immediate complications. IMPRESSION: Successful ultrasound-guided Left thoracentesis. Electronically signed by: Saroj Rice MD (11/17/2021 12:21 PM) [id number]
--- NOTE | 2021-11-17 12:26 | RAD ---
Site ID: [id number] EXAMINATION: XR CHEST 1V. HISTORY: 66 years Female Reason: POST THORACENTESIS: . . COMPARISON: August 24, 2021. Findings: There is significant improvement in the expansion of the left lower lobe with the minimal r emaining left pleural effusion after thoracentesis. No significant pneumothorax is seen. The right ismael ng demonstrate the slight increase and the right perihilar thickening and the right basilar atelectas is, changes probably related to known lung cancer. There is a chest tube in the right side, a Pleurx catheter there are surgical clips in the left axilla. Small to moderate right effusion seen. Left IJ port is also seen. Impression: Improved expansion of the left lung after thoracentesis with minimal left pleural fluid r emaining. Right Pleurx catheter is seen with small to moderate joint effusion. Electronically signed by: Saroj Rice MD (11/17/2021 12:24 PM) [id number]
--- NOTE | 2021-11-17 12:29 | RAD ---
EXAMINATION: Ultrasound Guidance (CPT 70626) Biopsy-neck lymph nodes. (CPT 67449) INDICATION: Left supraclavicular lymph node enlargement. SEDATION: No sedation. Current history and physical and other medical records are reviewed prior to the procedure. CONSENT: Informed consent was obtained. The risks, benefits, potential complications and alternatives were reviewed and all questions answered. PROCEDURE: After maximal sterile barrier technique preparation and draping, 1% lidocaine was utilized for local anesthesia. With the patient in supine position, and via lateral approach, a 17-gauge guide needle is introduced into the left supraclavicular lymph node under ultrasound scan guidance. After confirming adequate po sitioning with saved ultrasound images, multiple 18 gauge core biopsy specimens were obtained. The patient tolerated the procedure well with no immediate complications. FINDINGS: Mildly enlarged left supraclavicular lymph node. IMPRESSION: Successful ultrasound guided biopsy of left supraclavicular lymph node. Electronically signed by: Saroj Rice MD (11/17/2021 12:26 PM) [id number]
--- NOTE | 2021-11-17 12:29 | RAD ---
EXAMINATION: Ultrasound Guidance (CPT 16141) Biopsy-neck lymph nodes. (CPT 21449) INDICATION: Left supraclavicular lymph node enlargement. SEDATION: No sedation. Current history and physical and other medical records are reviewed prior to the procedure. CONSENT: Informed consent was obtained. The risks, benefits, potential complications and alternatives were reviewed and all questions answered. PROCEDURE: After maximal sterile barrier technique preparation and draping, 1% lidocaine was utilized for local anesthesia. With the patient in supine position, and via lateral approach, a 17-gauge guide needle is introduced into the left supraclavicular lymph node under ultrasound scan guidance. After confirming adequate po sitioning with saved ultrasound images, multiple 18 gauge core biopsy specimens were obtained. The patient tolerated the procedure well with no immediate complications. FINDINGS: Mildly enlarged left supraclavicular lymph node. IMPRESSION: Successful ultrasound guided biopsy of left supraclavicular lymph node. Electronically signed by: Saroj Rice MD (11/17/2021 12:26 PM) [id number]
--- NOTE | 2021-11-17 12:51 | NUR ---
pt discharged to home with family. Port de-accessed and packed with heparin flush. pt home with family in private vehicle.
== END 2021-11-17 12:55 | disposition home or self-care (01) ==
LOC: CT 09:06
PROVIDERS: ATTEND Internal Medicine Hematology & Oncology
DX: J90 Pleural effusion, not elsewhere classified (principal); R59.1 Generalized enlarged lymph nodes; J44.9 Chronic obstructive pulmonary disease, unspecified; F41.9 Anxiety disorder, unspecified; F32.9 Major depressive disorder, single episode, unspecified; Z87.891 Personal history of nicotine dependence; Z72.89 Other problems related to lifestyle; Z98.890 Other specified postprocedural states; Z88.2 Allergy status to sulfonamides; Z91.040 Latex allergy status; Z88.6 Allergy status to analgesic agent
CPT/HCPCS: 32555; 36415; 38505; 70492; 71045; 76942; 85610; 87426; J3490; Q9967

== ENCOUNTER → 2021-11-20 | Outpatient (CLI) | payer MEDICARE ==
[2021-11-17 11:45] VITALS: BP 133/80
[~2021-11-20] MED LIST changes: -IOHEXOL 300 MG/ML 100ML VIAL. IV ONE
[2021-11-20 10:07] LABS: BASO % 1 % (0-3); EOS # 0.3 x10^3/uL (0.0-0.7); EOS % 5 % (0-3); HEMATOCRIT 39.4 % (36.0-47.0); HEMOGLOBIN 13.3 g/dL (12.0-15.5); LYMPH # 0.7 x10^3/uL (1.0-4.8); LYMPH % 12 % (24-48); MEAN CORPUSCULAR HEMOGLOBIN 36 pg (25-35); MEAN CORPUSCULAR HGB CONC 34 g/dL (31-37); MEAN CORPUSCULAR VOLUME 107 fL (79-100); MONO # 0.5 x10^3/uL (0.0-1.1); MONO % 9 % (0-9); NEUT # 3.8 x10^3/uL (1.8-7.7); NEUT % 73 % (31-73); PLATELET COUNT 288 x10^3/uL (140-400); RED BLOOD COUNT 3.69 x10^6/uL (3.50-5.40); RED CELL DISTRIBUTION WIDTH 16.3 % (11.5-14.5); WHITE BLOOD COUNT 5.3 x10^3/uL (4.0-11.0)
[2021-11-20 10:25] LABS: CALCIUM 8.1 mg/dL (8.5-10.1); CREATININE 0.7 mg/dL (0.6-1.0); GFR 83.5; POTASSIUM 3.9 mmol/L (3.5-5.1)
[2021-11-20 10:30] LABS: ALBUMIN 1.9 g/dL (3.4-5.0); ALBUMIN/GLOBULIN RATIO 0.5 (1.0-1.7); TOTAL BILIRUBIN 0.5 mg/dL (0.2-1.0); TOTAL PROTEIN 5.7 g/dL (6.4-8.2)
== END ==
LOC: ONCLAB 09:44
PROVIDERS: ATTEND Internal Medicine Hematology & Oncology
DX: C34.11 Malignant neoplasm of upper lobe, right bronchus or lung (principal); E03.9 Hypothyroidism, unspecified
CPT/HCPCS: 36415; 80053; 84443; 85025

== ENCOUNTER → 2021-12-05 | Outpatient (CLI) | payer MEDICARE ==
[2021-11-17 11:45] VITALS: BP 133/80
[2021-12-05 12:09] LABS: BASO # 0.1 x10^3/uL (0.0-0.2); BASO % 1 % (0-3); EOS % 0 % (0-3); HEMATOCRIT 40.4 % (36.0-47.0); HEMOGLOBIN 13.9 g/dL (12.0-15.5); LYMPH # 0.3 x10^3/uL (1.0-4.8); LYMPH % 3 % (24-48); MEAN CORPUSCULAR HEMOGLOBIN 37 pg (25-35); MEAN CORPUSCULAR HGB CONC 34 g/dL (31-37); MEAN CORPUSCULAR VOLUME 107 fL (79-100); MONO # 0.5 x10^3/uL (0.0-1.1); MONO % 6 % (0-9); NEUT # 8.7 x10^3/uL (1.8-7.7); NEUT % 90 % (31-73); PLATELET COUNT 247 x10^3/uL (140-400); RED CELL DISTRIBUTION WIDTH 16.9 % (11.5-14.5); WHITE BLOOD COUNT 9.6 x10^3/uL (4.0-11.0)
[2021-12-05 12:20] LABS: CALCIUM 8.4 mg/dL (8.5-10.1); CREATININE 0.8 mg/dL (0.6-1.0); GFR 71.5; POTASSIUM 4.1 mmol/L (3.5-5.1)
[2021-12-05 12:27] LABS: ALBUMIN 2.2 g/dL (3.4-5.0); ALBUMIN/GLOBULIN RATIO 0.6 (1.0-1.7); TOTAL BILIRUBIN 1.2 mg/dL (0.2-1.0)
[2021-12-05 13:04] LABS: % BANDS 1 % (0-9); % LYMPHS 1 % (24-48); % MONOS 3 % (0-10); % SEGS 95 % (35-66); ANISOCYTOSIS PRESENT; PLT ESTIMATE ADEQUATE (ADEQUATE)
== END ==
LOC: ONCLAB 11:38
PROVIDERS: ATTEND Internal Medicine Hematology & Oncology
DX: C34.11 Malignant neoplasm of upper lobe, right bronchus or lung (principal); R53.82 Chronic fatigue, unspecified
CPT/HCPCS: 36415; 80053; 84443; 85007; 85025

== ENCOUNTER → 2021-12-19 | Outpatient (CLI) | payer MEDICARE ==
[2021-11-17 11:45] VITALS: BP 133/80
[2021-12-19 11:00] LABS: BASO # 0.1 x10^3/uL (0.0-0.2); BASO % 1 % (0-3); EOS # 0.1 x10^3/uL (0.0-0.7); EOS % 1 % (0-3); LYMPH # 0.5 x10^3/uL (1.0-4.8); LYMPH % 6 % (24-48); MEAN CORPUSCULAR HEMOGLOBIN 36 pg (25-35); MEAN CORPUSCULAR HGB CONC 33 g/dL (31-37); MEAN CORPUSCULAR VOLUME 108 fL (79-100); MONO # 0.6 x10^3/uL (0.0-1.1); MONO % 7 % (0-9); NEUT # 7.2 x10^3/uL (1.8-7.7); NEUT % 85 % (31-73); PLATELET COUNT 297 x10^3/uL (140-400); RED BLOOD COUNT 3.63 x10^6/uL (3.50-5.40); RED CELL DISTRIBUTION WIDTH 15.7 % (11.5-14.5); WHITE BLOOD COUNT 8.5 x10^3/uL (4.0-11.0)
[2021-12-19 11:13] LABS: CALCIUM 8.7 mg/dL (8.5-10.1); CREATININE 0.8 mg/dL (0.6-1.0); GFR 71.5; POTASSIUM 4.3 mmol/L (3.5-5.1)
[2021-12-19 11:19] LABS: ALBUMIN 2.2 g/dL (3.4-5.0); ALBUMIN/GLOBULIN RATIO 0.6 (1.0-1.7); TOTAL BILIRUBIN 0.8 mg/dL (0.2-1.0); TOTAL PROTEIN 5.8 g/dL (6.4-8.2)
== END ==
LOC: ONCLAB 10:35
PROVIDERS: ATTEND Internal Medicine Hematology & Oncology
DX: C34.11 Malignant neoplasm of upper lobe, right bronchus or lung (principal)
CPT/HCPCS: 36415; 80053; 85025

== ENCOUNTER → 2021-12-25 | Outpatient (CLI) | payer MEDICARE ==
[2021-11-17 11:45] VITALS: BP 133/80
[2021-12-25 11:29] LABS: BASO % 1 % (0-3); EOS # 0.1 x10^3/uL (0.0-0.7); EOS % 2 % (0-3); HEMATOCRIT 40.2 % (36.0-47.0); HEMOGLOBIN 13.5 g/dL (12.0-15.5); LYMPH # 0.7 x10^3/uL (1.0-4.8); LYMPH % 11 % (24-48); MEAN CORPUSCULAR HEMOGLOBIN 36 pg (25-35); MEAN CORPUSCULAR HGB CONC 34 g/dL (31-37); MEAN CORPUSCULAR VOLUME 108 fL (79-100); MONO # 0.5 x10^3/uL (0.0-1.1); MONO % 9 % (0-9); NEUT # 4.9 x10^3/uL (1.8-7.7); NEUT % 78 % (31-73); PLATELET COUNT 274 x10^3/uL (140-400); RED BLOOD COUNT 3.73 x10^6/uL (3.50-5.40); RED CELL DISTRIBUTION WIDTH 15.2 % (11.5-14.5); WHITE BLOOD COUNT 6.3 x10^3/uL (4.0-11.0)
[2021-12-25 11:38] LABS: CALCIUM 8.1 mg/dL (8.5-10.1); CREATININE 0.6 mg/dL (0.6-1.0); GFR 99.7; POTASSIUM 3.9 mmol/L (3.5-5.1)
[2021-12-25 11:44] LABS: ALBUMIN 2.1 g/dL (3.4-5.0); ALBUMIN/GLOBULIN RATIO 0.6 (1.0-1.7); TOTAL BILIRUBIN 0.2 mg/dL (0.2-1.0); TOTAL PROTEIN 5.9 g/dL (6.4-8.2)
== END ==
LOC: ONCLAB 11:12
PROVIDERS: ATTEND Internal Medicine Hematology & Oncology
DX: C34.11 Malignant neoplasm of upper lobe, right bronchus or lung (principal)
CPT/HCPCS: 36415; 80053; 85025

== ENCOUNTER → 2021-12-25 | Outpatient (CLI) | payer MEDICARE ==
[2021-11-17 11:45] VITALS: BP 133/80
--- NOTE | 2021-12-25 10:42 | RAD ---
EXAM: Chest, 2 views. HISTORY: Cough. COMPARISON: 11/17/2021 FINDINGS: 2 views of the chest are obtained. There is a right pleural drainage catheter overlying the inferior right hemithorax. There is a port catheter with the tip overlying the expected region of th e superior right atrium. There has been interval decrease in a small right pleural effusion. There is a stable small left pleural effusion. There is stable right apical pleural thickening and loculated fluid with adjacent coarse markings and spiculated nodular opacities. There are left axillary clips. IMPRESSION: 1. Decrease in a small right pleural effusion. There is a right thoracostomy tube overlying the infer ior thorax. 2. Stable right apical pleural thickening and loculated fluid with adjacent coarse interstitial shade ngs and spiculated nodular opacities, better characterized on a CT performed 07/26/2021 and consistent with known lung malignancy or relation treatment related changes. 3. Emphysema. 4. Small left pleural effusion. Electronically signed by: Di Sanon MD (12/25/2021 10:39 AM) [id number]
== END ==
LOC: RAD 10:03
PROVIDERS: ATTEND Internal Medicine Hematology & Oncology
DX: J92.9 Pleural plaque without asbestos (principal); J90 Pleural effusion, not elsewhere classified; R05.3 Chronic cough; J43.9 Emphysema, unspecified
CPT/HCPCS: 71046

== ENCOUNTER → 2022-01-10 | Outpatient (CLI) | payer MEDICARE ==
[2022-01-05 07:00] VITALS: BP 113/65
[2022-01-10 14:31] LABS: BASO % 0 % (0-3); EOS # 0.1 x10^3/uL (0.0-0.7); EOS % 2 % (0-3); HEMATOCRIT 38.7 % (36.0-47.0); HEMOGLOBIN 12.9 g/dL (12.0-15.5); LYMPH # 0.5 x10^3/uL (1.0-4.8); LYMPH % 8 % (24-48); MEAN CORPUSCULAR HEMOGLOBIN 36 pg (25-35); MEAN CORPUSCULAR HGB CONC 33 g/dL (31-37); MEAN CORPUSCULAR VOLUME 109 fL (79-100); MONO # 0.6 x10^3/uL (0.0-1.1); MONO % 8 % (0-9); NEUT # 5.5 x10^3/uL (1.8-7.7); NEUT % 82 % (31-73); PLATELET COUNT 368 x10^3/uL (140-400); RED BLOOD COUNT 3.55 x10^6/uL (3.50-5.40); RED CELL DISTRIBUTION WIDTH 14.8 % (11.5-14.5); WHITE BLOOD COUNT 6.7 x10^3/uL (4.0-11.0)
[2022-01-10 14:44] LABS: CALCIUM 8.4 mg/dL (8.5-10.1); CREATININE 0.8 mg/dL (0.6-1.0); GFR 71.5; POTASSIUM 4.5 mmol/L (3.5-5.1)
[2022-01-10 14:50] LABS: ALBUMIN 2.3 g/dL (3.4-5.0); ALBUMIN/GLOBULIN RATIO 0.7 (1.0-1.7); TOTAL BILIRUBIN 0.4 mg/dL (0.2-1.0); TOTAL PROTEIN 5.7 g/dL (6.4-8.2)
== END ==
LOC: ONCLAB 13:58
PROVIDERS: ATTEND Internal Medicine Hematology & Oncology
DX: C34.11 Malignant neoplasm of upper lobe, right bronchus or lung (principal)
CPT/HCPCS: 36415; 80053; 85025

== ENCOUNTER → 2022-01-22 | Outpatient (CLI) | payer MEDICARE ==
[2022-01-05 07:00] VITALS: BP 113/65
[~2022-01-22] MED LIST changes: +DOCU50CA9 PO; +[UNRECOGNIZED DRUG - CODE]
== END ==
LOC: LAB 10:59
PROVIDERS: ATTEND Surgery
DX: Z01.812 Encounter for preprocedural laboratory examination (principal); Z20.822 Contact with and (suspected) exposure to COVID-19
CPT/HCPCS: U0003

== ENCOUNTER 2022-01-23 06:04 | Observation (INO) | payer MEDICARE ==
[~2022-01-23] VITALS: Ht 171.4 cm; Wt 54.5 kg
[2022-01-23] VITALS (11 sets, daily range): BP systolic 88–134; BP diastolic 44–76
[~2022-01-23 06:04] MED LIST changes: +HYDROmorphone 2 MG/ML INJ. IVP PRN; +IV RINGERS,LACTATED 1000ML 1,000 ML IV SCH; +MORPHINE SULFATE 2 MG/ML INJ. IVP PRN; +PROCHLORPERAZINE 10 MG/2 ML VIAL. IVP PRN; +ceFAZolin SODIUM IV Push 1 GM VIAL. IVP PRN; +fentaNYL PF VIAL 100 MCG/2 ML VIAL IVP PRN
[2022-01-23] MEDS ORDERED: IOHEXOL 300 MG/ML 50 ML VIAL. ONE (06:55)
[2022-01-23] MEDS ORDERED: GLUCAGON,HUMAN RECOMBINANT 1 MG/ML VIAL. ONE (06:55)
[2022-01-23] MEDS ORDERED: SURGICEL HEMOSTAT 4X8 EACH. ONE (06:55)
[2022-01-23] MEDS ORDERED: BUPIVACAINE-EPI 0.5% 30 ML VIAL KIT. ONE (06:55)
[2022-01-23] MEDS ORDERED: SUGAMMADEX SODIUM 200 MG/2 ML VIAL. IVP ONE (08:15)
--- NOTE | 2022-01-23 08:54 | RAD ---
Interoperative Cholangiogram: Technique: Contrast is introduced into the cystic duct during the performance of a laparoscopic chol ecystectomy and spot views were obtained on a portable C-arm for an intraoperative cholangiogram. Total fluoroscopic time: 0.35 minutes Total fluoroscopic spot images: 4 Findings: The central biliary tree is visualized and appears normal. No filling defects are seen. Contrast is s een in the duodenum. Impression: No evidence of a retained stone. Electronically signed by: Eliceo Patten MD (01/23/2022 8:52 AM) [id number]
--- NOTE | 2022-01-23 09:08 | PDOC4 ---
Operative Note Operative Note Operative Note: Preoperative Diagnosis: Symptomatic cholelithiasis Postoperative Diagnosis: Same Procedure: Laparoscopic cholecystectomy with intraoperative cholangiogram Surgeons: Addy Magnetic Prospector: Austyn Zelaya MS 4 Anesthesia: Gen. Estimated Blood Loss: 10 mL Specimen: Gallbladder to pathology Drains: None Complications: None Indications: The patient is a 66-year-old female who is referred due to sy mptomatic cholelithiasis. Surgical treatment was offered by means of a laparoscopic cholecystectomy. The risks of surgery were discussed which include bleeding, infection, bile duct injury, bile leak, pain, the potential for additional surgeries or procedures. The patient understands and would like to proceed. Description: The patient was taken to the operating room and laid supine on the operating table. General anesthesia was performed. The abdomen was prepped with ChloraPrep and draped in a standard surgical fashion. A small infraumbilical incision was made with a scalpel. The Veress needle was then inserted and a pneumoperitoneum was then created. A 5 mm trocar was then inserted and the laparoscope was introduced. In the upper midabdomen a 5 mm trocar was inserted and in the right upper quadrant two 2.3 mm mini lap graspers were inserted. The gallbladder was retracted cephalad. The cystic duct was dissected free from surrounding tissues. One clip was placed on the duct near the gallbladder junction. An opening was made in the duct and a cholangiocatheter placed within and secured with a clip. Using contrast dye and fluoroscopy an intraoperative cholangiogram was performed that appeared unremarkable. The clip and catheter were then withdrawn. Three clips were placed on the cystic duct and it was divided. The cystic artery was then identified, dissected free, doubly clipped and divided as well. The gallbladder was then mobilized away from the liver with cautery. The umbilical 5 millimeter trocar was exchanged for an 11 millimeter trocar. The gallbladder was then placed in an endoscopic bag and extracted at the umbilical trocar site. The fascia there was closed with an 0 Vicryl suture and infiltrated with 0.5% marcaine. All blood and irrigation fluid was suctioned and hemostasis was good. The remaining ports were removed and the pneumoperitoneum was relieved. The skin incisions were closed using 4-0 Monocryl suture. Steri-Strips and dressings were then applied. The patient tolerated the procedure well and was sent to the recovery room in stable condition. At the end of the case all counts were correct. MOI OAKLEY MD Jan 23, 2022 09:08
[2022-01-23] MEDS ORDERED: oxyCODONE/APAP 5/325 1 TAB TABLET PO PRN (09:15)
[2022-01-23] MEDS ORDERED: NALOXONE 0.4 MG/ML VIAL. IV PRN (09:15)
[2022-01-23] MEDS ORDERED: 0.9 % SODIUM CHLORIDE 10 ML DISP.SYRIN. IV PRN (09:15)
[2022-01-23] MEDS ORDERED: HYDROmorphone 2 MG/ML INJ. IV PRN (09:15)
[2022-01-23] MEDS ORDERED: ONDANSETRON PF 4 MG/2 ML VIAL. IVP PRN (09:15)
[2022-01-23] MEDS ORDERED: IV NORMAL SALINE 1000ML BAG 1,000 ML IV SCH (09:15)
[2022-01-23] MEDS ORDERED: fentaNYL PF VIAL 100 MCG/2 ML VIAL ONE (09:39)
[2022-01-23] MEDS ORDERED: PROCHLORPERAZINE 10 MG/2 ML VIAL. ONE (09:39)
[2022-01-23] MEDS: fentaNYL PF VIAL 100 MCG/2 ML VIAL IVP PRN ×2 (09:42→09:53)
--- NOTE | 2022-01-23 10:35 | NUR ---
Arrived to unit by bed from PACU. Awakens easily but falls back to sleep. No c/o at this time. Has 5 lap sites that have some shadowing and has ice pack. IVF's intact and infusing through Sanju cath on right chest. O2 at 3l per n/c. SUZETTE's and SCD's on bilaterally. Side rails up x's 3 with call light in reach. Sister at bedside. Cont. monitor.
[2022-01-23] MEDS: IPRATRPIUM/ALBUTEROL 0.5/2.5MG 3 ML NEBU. NEB SCH ×3 (13:34→20:54)
[2022-01-23] MEDS: LORazepam 0.5 MG TABLET PO PRN ×2 (14:40→21:07)
[2022-01-23] MEDS: oxyCODONE/APAP 5/325 1 TAB TABLET PO PRN ×2 (14:41→21:07)
[2022-01-23] MEDS: IV 1/2 NORMAL SALINE 1,000 ML IV SCH (20:32)
[2022-01-24] MEDS: IV 1/2 NORMAL SALINE 1,000 ML IV SCH (02:02)
[2022-01-24 02:58] VITALS: BP 87/36
[2022-01-24] MEDS: oxyCODONE/APAP 5/325 1 TAB TABLET PO PRN ×3 (04:59→09:44)
[2022-01-24 07:20] VITALS: BP 103/68
[2022-01-24] MEDS ORDERED: PANTOPRAZOLE 40 MG TABLET.DR. PO SCH (07:30)
[2022-01-24] MEDS: LORazepam 0.5 MG TABLET PO PRN (08:34)
[2022-01-24] MEDS ORDERED: ASCORBIC ACID 500 MG TABLET PO SCH (09:00)
[2022-01-24] MEDS ORDERED: NON FORMULARY ITEM (Tiotropium Bromide (Spiriva) 1 CAP) IH SCH (09:00)
[2022-01-24] MEDS ORDERED: DOCUSATE SODIUM 100 MG CAPSULE. PO SCH (09:00)
--- NOTE | 2022-01-24 09:01 | PDOC ---
PROGRESS NOTES Date of Service DATE: 01/24/22 TIME: 09:00 Subjective Subjective doing well Objective Objective Vital Signs Date Time Temp Pulse Resp B/P (MAP) Pulse Ox O2 Delivery O2 Flow Rate FiO2 01/24/22 07:32 Nasal Cannula 3.0 01/24/22 07:20 97.7 97 18 103/68 (80) 98 97.7 Intake and Output 01/24/22 07:00 Intake Total 1460 ml Output Total 220 ml Balance 1240 ml Intake Oral 560 ml IV Total 900 ml Output Urine Total 200 ml Estimated Blood Loss 20 ml # Voids 1 Physical Exam Abdomen: Soft Plan Plan of Care discharge Comment Review of Relevant I have reviewed the following items yasmani (where applicable) has been applied. Labs Laboratory Tests Test 01/23/22 06:22 POC SARS CoV-2 Antigen Negative (NEGATIVE) Medications Current Medications Fentanyl Citrate (Fentanyl 2ml Vial) 25 mcg PRN Q5MIN PRN IVP MILD PAIN 1-3; Start 01/23/22 at 06:00; Stop 01/23/22 at 20:00; Status DC Fentanyl Citrate (Fentanyl 2ml Vial) 50 mcg PRN Q5MIN PRN IVP MODERATE PAIN 4-6 Last administered on 01/23/22at 09:53; Start 01/23/22 at 06:00; Stop 01/23/22 at 20:00; Status DC Morphine Sulfate (Morphine Sulfate) 1 mg PRN Q10MIN PRN IVP SEVERE PAIN 7-10; Start 01/23/22 at 06:00; Stop 01/23/22 at 20:00; Status DC Ringer's Solution 1,000 ml @ 30 mls/hr Q24H IV Last administered on 01/23/22at 06:44; Start 01/23/22 at 06:00; Stop 01/23/22 at 17:59; Status DC Hydromorphone HCl (Dilaudid) 0.5 mg PRN Q10MIN PRN IVP SEVERE PAIN 7-10, 2nd CHOICE; Start 01/23/22 at 06:00; Stop 01/23/22 at 20:00; Status DC Prochlorperazine Edisylate (Compazine) 5 mg PACU PRN PRN IVP NAUSEA, MRX1 Last administered on 01/23/22at 09:42; Start 01/23/22 at 06:00; Stop 01/23/22 at 20:00; Status DC Cefazolin Sodium (Ancef) 1 gm 1X PREOP PRN IVP PRIOR TO PROCEDURE Last administered on 01/23/22at 07:34; Start 01/23/22 at 06:00; Stop 01/23/22 at 18:00; Status DC Glucagon (Glucagen) 1 mg STK-MED ONCE .ROUTE ; Start 01/23/22 at 06:55; Stop 01/23/22 at 06:56; Status DC Bupivacaine HCl/ Epinephrine Bitart (Sensorcain-Epi 0.5% Kit) 30 ml STK-MED ONCE .ROUTE Last administered on 01/23/22at 08:03; Start 01/23/22 at 06:55; Stop 01/23/22 at 06:56; Status DC Iohexol (Omnipaque 300 Mg/ml) 50 ml STK-MED ONCE .ROUTE Last administered on 01/23/22at 08:03; Start 01/23/22 at 06:55; Stop 01/23/22 at 06:56; Status DC Cellulose (Surgicel Hemostat 4x8) 1 each STK-MED ONCE .ROUTE ; Start 01/23/22 at 06:55; Stop 01/23/22 at 06:56; Status DC Sugammadex Sodium (Bridion) 200 mg 1X ONCE IVP ; Start 01/23/22 at 08:15; Stop 01/23/22 at 08:16; Status DC Sodium Chloride (Normal Saline Flush) 3 ml QSHIFT PRN IV AFTER MEDS AND BLOOD DRAWS; Start 01/23/22 at 09:15 Sodium Chloride 1,000 ml @ 80 mls/hr [id number] IV Last administered on 01/24/22at 02:02; Start 01/23/22 at 09:15 Oxycodone/ Acetaminophen (Percocet 5/325) 1 tab PRN Q4HRS PRN PO MILD PAIN, 1ST CHOICE Last administered on 01/24/22at 05:05; Start 01/23/22 at 09:15 Oxycodone/ Acetaminophen (Percocet 5/325) 2 tab PRN Q4HRS PRN PO MODERATE PAIN, SEVERE PAIN; Start 01/23/22 at 09:15 Naloxone HCl (Narcan) 0.4 mg PRN Q2MIN PRN IV SEE INSTRUCTIONS; Start 01/23/22 at 09:15 Sodium Chloride 1,000 ml @ 25 mls/hr Q24H IV ; Start 01/23/22 at 09:15 Hydromorphone HCl (Dilaudid) 0.2 mg PRN Q1HR PRN IV PAIN; Start 01/23/22 at 09:15 Ondansetron HCl (Zofran) 4 mg PRN Q6HRS PRN IVP NAUESA, 1ST CHOICE; Start 01/23/22 at 09:15 Lorazepam (Ativan) 0.5 mg PRN TID PRN PO ANXIETY / AGITATION Last administered on 01/24/22at 08:34; Start 01/23/22 at 09:15 Ascorbic Acid (Vitamin C) 500 mg DAILY PO Last administered on 01/24/22at 08:34; Start 01/24/22 at 09:00 Docusate Sodium (Colace) 100 mg DAILY PO Last administered on 01/24/22at 08:34; Start 01/24/22 at 09:00 Pantoprazole Sodium (Protonix) 40 mg DAILYAC PO Last administered on 01/24/22at 06:32; Start 01/24/22 at 07:30 Non-Formulary Medication (Tiotropium [place] (Spiriva)) 1 cap DAILY IH ; Start 01/24/22 at 09:00; Status UNV Fentanyl Citrate (Fentanyl 2ml Vial) 100 mcg STK-MED ONCE .ROUTE ; Start 01/23/22 at 09:39; Stop 01/23/22 at 09:39; Status DC Prochlorperazine Edisylate (Compazine) 10 mg STK-MED ONCE .ROUTE ; Start 01/23/22 at 09:39; Stop 01/23/22 at 09:39; Status DC Albuterol/ Ipratropium (Duoneb) 3 ml RTQID NEB Last administered on 01/23/22at 20:54; Start 01/23/22 at 12:00 Active Scripts Active Tramadol Hcl 100 Mg Tbmp.24hr 100 Mg PO PRN Q6HRS PRN 6 Days Reported [immunotherapy-] 1 Josh Q2WKS Stool Softener (Docusate Sodium) 50 Mg Capsule 1 Cap PO DAILY 30 Days Zofran (Ondansetron Hcl) 4 Mg Tablet 4 Mg PO BID PRN Protonix (Pantoprazole Sodium) 20 Mg Tablet.dr 20 Mg PO DAILY Spiriva (Tiotropium [place]) 18 Mcg Cap.w.dev 1 Cap IH DAILY Ativan (Lorazepam) 0.5 Mg Tablet 0.5 Mg PO TID PRN [vitamin D ] 1 Tab PO DAILY Vitamin C (Ascorbic Acid) 100 Mg Tablet 1 Tab PO DAILY 30 Days Vitals/I & O Vital Sign - Last 24 Hours 01/23/22 01/23/22 01/23/22 01/23/22 09:11 09:11 09:12 09:25 Temp 98.2 98.2 Pulse 110 105 Resp 16 16 B/P (MAP) 161/73 151/80 Pulse Ox 99 100 O2 Delivery Nasal Cannula Mask Simple Mask Simple Mask O2 Flow Rate 4 6 6 6 01/23/22 01/23/22 01/23/22 01/23/22 09:40 09:42 09:53 09:55 Temp 98 98.0 Pulse 104 102 Resp 16 15 15 16 B/P (MAP) 151/73 113/59 Pulse Ox 99 100 100 98 O2 Delivery Nasal Cannula Simple Mask Nasal Cannula Nasal Cannula O2 Flow Rate 4 6.0 4.0 4 01/23/22 01/23/22 01/23/22 01/23/22 10:05 10:10 10:25 10:35 Temp 97.5 97.5 Pulse 101 101 101 Resp 15 15 16 B/P (MAP) 112/59 110/58 97/53 (68) Pulse Ox 98 98 98 O2 Delivery Nasal Cannula Nasal Cannula Nasal Cannula Nasal Cannula O2 Flow Rate 4 4 4 3.0 01/23/22 01/23/22 01/23/22 01/23/22 10:40 10:45 11:00 11:15 Pulse 96 99 99 Resp 16 16 16 B/P (MAP) 107/58 (74) 112/58 (76) 102/55 (71) Pulse Ox 100 100 99 O2 Delivery Nasal Cannula Nasal Cannula Nasal Cannula Nasal Cannula O2 Flow Rate 3.0 3.0 3.0 3.0 01/23/22 01/23/22 01/23/22 01/23/22 11:45 12:15 13:00 14:00 Pulse 95 94 91 89 Resp 16 16 16 20 B/P (MAP) 102/52 (69) 110/53 (72) 94/76 (82) 92/44 (60) Pulse Ox 99 100 97 100 O2 Delivery Nasal Cannula Nasal Cannula Nasal Cannula Nasal Cannula O2 Flow Rate 3.0 3.0 3.0 3.0 01/23/22 01/23/22 01/23/22 01/23/22 15:15 16:07 19:53 20:11 Temp 98.0 98.0 Pulse 103 Resp 16 19 B/P (MAP) 99/56 (70) Pulse Ox 100 100 98 O2 Delivery Nasal Cannula Nasal Cannula Nasal Cannula Nasal Cannula O2 Flow Rate 3.0 2.0 3.0 3.0 01/23/22 01/23/22 01/23/22 01/23/22 20:55 21:07 21:37 23:00 Temp 98.2 98.2 Pulse 101 Resp 18 19 B/P (MAP) 88/44 (59) Pulse Ox 100 100 96 O2 Delivery Nasal Cannula Nasal Cannula Nasal Cannula Nasal Cannula O2 Flow Rate 2.0 2.0 2.0 3.0 01/24/22 01/24/22 01/24/22 01/24/22 02:58 04:59 05:05 05:35 Temp 98.2 98.2 Pulse 96 Resp 19 20 18 B/P (MAP) 87/36 (53) Pulse Ox 97 97 97 O2 Delivery Nasal Cannula Nasal Cannula Nasal Cannula Nasal Cannula O2 Flow Rate 3.0 3.0 3.0 3.0 01/24/22 01/24/22 01/24/22 05:35 07:20 07:32 Temp 97.7 97.7 Pulse 97 Resp 18 B/P (MAP) 103/68 (80) Pulse Ox 97 98 O2 Delivery Nasal Cannula Nasal Cannula Nasal Cannula O2 Flow Rate 3.0 3.0 3.0 Intake and Output 01/23/22 01/23/22 01/24/22 15:00 23:00 07:00 Intake Total 960 ml 300 ml 200 ml Output Total 20 ml 200 ml Balance 940 ml 100 ml 200 ml Justifications for Admission Other Justification MOI OAKLEY MD Jan 24, 2022 09:01
--- NOTE | 2022-01-24 09:03 | DISCH ---
DISCHARGE INSTRUCTIONS Condition on Discharge Condition on Discharge: Stable Activity After Discharge Activity Instructions for Disc: Other, see below ( No lifting over 20 lbs X 2 weeks) Diet after Discharge Diet after Discharge: Regular Wound Incision Care Wound/Incision Care: Other, see below (may remove bandaids tomorrow and shower) Follow-Up Follow up with: Dr Oakley in 2 weeks in office, call for appt [phone] MOI OAKLEY MD Jan 24, 2022 09:03
--- NOTE | 2022-01-24 09:05 | PDOC3 ---
Discharge Summary Visit Information Date of Admission: Jan 23, 2022 Date of Discharge: Jan 24, 2022 Admitting Diagnosis: Symptomatic cholelithiasis Brief Hospital Course Allergies Allergies Coded Allergies Type Severity Reaction Last Updated Verified Sulfa (Sulfonamide Antibiotics) Allergy Intermediate ITCHING THROAT, GI UPSET 01/03/22 Yes latex Allergy Intermediate Rash 01/03/22 Yes morphine Adverse Reaction Intermediate Anxiety 01/05/22 Yes Vital Signs Vital Signs Date Time Temp Pulse Resp B/P (MAP) Pulse Ox O2 Delivery O2 Flow Rate FiO2 01/24/22 07:32 Nasal Cannula 3.0 01/24/22 07:20 97.7 97 18 103/68 (80) 98 97.7 Lab Results Laboratory Tests Test 01/23/22 06:22 POC SARS CoV-2 Antigen Negative (NEGATIVE) Brief Hospital Course Ms. Cheatham is a 66 old female who presented with symptomatic cholelithiasis. She underwent laparoscopic cholecystectomy on January 23, 2022. Surgery was uneventful and she was discharged on postoperative day 1. Discharge Information Scheduled Ascorbic Acid (Vitamin C) 100 Mg Tablet, 1 TAB PO DAILY for supplement for 30 Days, #30 Ref 0 (Reported) Entered as Reported by: BEN ABDALLA on 04/24/212052 Last Action: Converted on 01/23/22912 by MOI OAKLEY Docusate Sodium (Stool Softener) 50 Mg Capsule, 1 CAP PO DAILY for constipation for 30 Days, #30 Ref 0 (Reported) Entered as Reported by: INDER MARTINI on 01/22/22 1210 Last Action: Converted on 01/23/22912 by MOI OAKLEY Pantoprazole Sodium (Protonix) 20 Mg Tablet.dr, 20 MG PO DAILY for GERD , (Reported) Entered as Reported by: MILAN URBANO on 08/10/21 1308 Last Action: Converted on 01/23/22912 by MOI OAKLEY Tiotropium [place] (Spiriva) 18 Mcg Cap.w.dev, 1 CAP IH DAILY for COPD, #30 Ref 3 (Reported) Entered as Reported by: JUAN JAFFE RN on 06/30/212124 Last Taken: Unknown Dose on 01/23/22 0530 Last Action: Converted on 01/03 by MOI OAKLEY [immunotherapy-] , 1 ROCHELLE Q2WKS for immunotherapy, (Reported) Entered as Reported by: INDER MARTINI on 01/22/22 1210 Last Action: HELD on 01/23/22912 by MOI OAKLEY [vitamin D ] , 1 TAB PO DAILY, (Reported) Entered as Reported by: BEN ABDALLA on 04/24/212053 Last Action: HELD on 01/23/22912 by MOI OAKLEY Scheduled PRN Lorazepam (Ativan) 0.5 Mg Tablet, 0.5 MG PO TID PRN for ANXIETY / AGITATION, (Reported) Entered as Reported by: JUAN JAFFE RN on 06/30/212124 Last Taken: Unknown Dose on 01/23/22529 Last Action: Continued on 01/23/22912 by MOI OAKLEY Ondansetron Hcl (Zofran) 4 Mg Tablet, 4 MG PO BID PRN for NAUSEA/VOMITING, (Reported) Entered as Reported by: MILAN URBANO on 08/10/21 1308 Last Action: HELD on 01/23/22912 by MOI OAKLEY Tramadol Hcl (Tramadol Hcl) 100 Mg Tbmp.24hr, 100 MG PO PRN Q6HRS PRN for PAIN for 6 Days, #24 Ref 0 Prescribed by: BEVERLY ROSARIO MD on 05/13/21 1411 Last Taken: Unknown Dose on 01/23/22529 Last Action: HELD on 01/23/22912 by MOI OAKLEY Justicifation of Admission Dx: Justifications for Admission: Justification of Admission Dx: Yes MOI OAKLEY MD Jan 24, 2022 09:05
[2022-01-24] MEDS ORDERED: HEPARIN PF 500 UNIT/5 ML DISP.SYRIN. IVP ONE (10:00)
--- NOTE | 2022-01-24 10:30 | NUR ---
Discharge instructions given. Answered questions and concerns. Both patient and sister verbalized understanding. Pt discharged home. Escorted out by w/c.
--- NOTE | 2022-01-25 17:09 | PATHOLOGY ---
[facility] Accession Number: [id number] . 01 Material submitted: . gallbladder - GALLBLADDER . 01 Clinical history: . CHOLECYSTITIS L/S CHOLECYSTECTOMY . 02 Diagnosis: Gallbladder, laparoscopic cholecystectomy: - Cholelithiasis. - Chronic cholecystitis. 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 (JPM:pit; 01/25/2022) [facility] 01/25/2022 0911 Local . 02 Comment: There is no evidence of malignancy. (JPM:pit; 01/25/2022) . 02 Electronically signed: . Cristopher Pichardo MD, Pathologist NPI- [id number] . 01 Gross description: . Fixative: Formalin Labeled: Gallbladder Specimen received: Previously disrupted gallbladder Dimensions: 7.4 x 2.3 x 1.5 cm Serosa: Red-jules, wrinkled and slightly roughened Lymph node: Identified measuring 0.5 cm Mucosa: Green-bauer, velvety Average wall thickness: Up to 0.4 cm Calculi: Multiple present displaying a yellow-brown, granular appearance and ranging in size from 0.3-0.5 cm, with multiple lodged within the cystic duct Abnormalities: None identified . A1- Professional Volleyball Player body, fundus, and the cystic duct margin. A2- Lymph node, bisected ([facility]; 01/23/2022) NRI/NRI 01/23/2022 2015 Local . 02 Pathologist provided ICD-10: K80.10 . 02 CPT . 764350 Specimen Comment: A courtesy copy of this report has been sent to [phone] Specimen Comment: Report sent to Performed at: 01 [facility] [address], [place], [place] [id number] MD Anatoliy Acuna MD Phone: [phone] Performed at: [address] [id number] MD Cristopher Pichardo MD Phone: [phone]
== END 2022-01-24 10:15 | disposition home or self-care (01) ==
LOC: SURG 06:04 → 4 SOUTHEST 09:08
PROVIDERS: ADMIT Surgery; ATTEND Surgery
DX: K80.20 Calculus of gallbladder without cholecystitis without obstruction (principal); Z20.822 Contact with and (suspected) exposure to COVID-19; F41.9 Anxiety disorder, unspecified; J44.9 Chronic obstructive pulmonary disease, unspecified; K21.9 Gastro-esophageal reflux disease without esophagitis; K59.00 Constipation, unspecified
CPT/HCPCS: 47563; 74300; 94640; 94760; 96374; A4213; A4930; C1887; G0378; G0379; J0690; J0780; J1642; J3010; J3490; Q9967; A4657; J1610

== ENCOUNTER → 2022-01-29 | Outpatient (CLI) | payer MEDICARE ==
[2022-01-24 07:20] VITALS: BP 103/68
[~2022-01-29] MED LIST changes: +DEXAMETHASONE SOD PHOS 4 MG/ML VIAL ONE; +ESMOLOL 100 MG/10 ML VIAL. IVP ONE; -HYDROmorphone 2 MG/ML INJ. IVP PRN; -IV RINGERS,LACTATED 1000ML 1,000 ML IV SCH; +LIDOCAINE 1% PF 5 ML VIAL. ONE; +METOPROLOL IV PUSH 5 MG/5 ML VIAL. IVP ONE; -MORPHINE SULFATE 2 MG/ML INJ. IVP PRN; +ONDANSETRON PF 4 MG/2 ML VIAL. ONE; -PROCHLORPERAZINE 10 MG/2 ML VIAL. IVP PRN; +PROPOFOL 10 MG/ML (20ML) VIAL. IV ONE; +ROCURONIUM 50 MG/5 ML VIAL. ONE; +TRAM100T10 PO; -TRAM100T2 PO; -ceFAZolin SODIUM IV Push 1 GM VIAL. IVP PRN; -fentaNYL PF VIAL 100 MCG/2 ML VIAL IVP PRN; +fentaNYL PF VIAL 100 MCG/2 ML VIAL ONE
== END ==
LOC: ONCLAB 14:05
PROVIDERS: ATTEND Internal Medicine Hematology & Oncology
DX: C34.11 Malignant neoplasm of upper lobe, right bronchus or lung (principal)
CPT/HCPCS: 36415; 83615; 87075; 87186; 88112; 88305; J1100; J2405; J2704; J3010; J3490

== ENCOUNTER → 2022-02-01 | Outpatient (CLI) | payer MEDICARE ==
[2022-01-24 07:20] VITALS: BP 103/68
[~2022-02-01] MED LIST changes: -DEXAMETHASONE SOD PHOS 4 MG/ML VIAL ONE; -ESMOLOL 100 MG/10 ML VIAL. IVP ONE; -LIDOCAINE 1% PF 5 ML VIAL. ONE; -METOPROLOL IV PUSH 5 MG/5 ML VIAL. IVP ONE; -ONDANSETRON PF 4 MG/2 ML VIAL. ONE; -PROPOFOL 10 MG/ML (20ML) VIAL. IV ONE; -ROCURONIUM 50 MG/5 ML VIAL. ONE; -fentaNYL PF VIAL 100 MCG/2 ML VIAL ONE
--- NOTE | 2022-02-01 16:45 | RAD ---
Two-view chest dated 02/01/2022 4:42 PM Comparison: 01/03/2022 CLINICAL INDICATION: Cough FINDINGS: PA and lateral views obtained. Heart and mediastinal contours are stable. Left subclavian port in cleo ce, unchanged. There is consolidation and pleural thickening at the right apex, unchanged. Blunting t he costophrenic sulci, mildly increased from prior study. Pleurx catheter on the left, unchanged. The re are surgical clips at the left axilla. IMPRESSION: 1. Bilateral pleural effusions, similar slightly increased from prior study. 2. Consolidation and volume loss at the right apex with associated pleural thickening, unchanged. Electronically signed by: Neo Hurley MD (02/01/2022 4:43 PM) ANTWAN
== END ==
LOC: LAB 12:35
PROVIDERS: ATTEND Physician Assistant
DX: J90 Pleural effusion, not elsewhere classified (principal); J84.89 Other specified interstitial pulmonary diseases; R05.3 Chronic cough; Z98.890 Other specified postprocedural states
CPT/HCPCS: 71046

== ENCOUNTER → 2022-02-01 | Outpatient (CLI) | payer MEDICARE ==
[2022-01-24 07:20] VITALS: BP 103/68
[2022-02-01 12:09] LABS: BASO % 1 % (0-3); EOS # 0.2 x10^3/uL (0.0-0.7); EOS % 3 % (0-3); HEMATOCRIT 40.9 % (36.0-47.0); HEMOGLOBIN 13.4 g/dL (12.0-15.5); LYMPH # 0.5 x10^3/uL (1.0-4.8); LYMPH % 6 % (24-48); MEAN CORPUSCULAR HEMOGLOBIN 36 pg (25-35); MEAN CORPUSCULAR HGB CONC 33 g/dL (31-37); MEAN CORPUSCULAR VOLUME 108 fL (79-100); MONO # 0.9 x10^3/uL (0.0-1.1); MONO % 10 % (0-9); NEUT # 7.4 x10^3/uL (1.8-7.7); NEUT % 81 % (31-73); PLATELET COUNT 346 x10^3/uL (140-400); RED BLOOD COUNT 3.79 x10^6/uL (3.50-5.40); RED CELL DISTRIBUTION WIDTH 14.2 % (11.5-14.5); WHITE BLOOD COUNT 9.1 x10^3/uL (4.0-11.0)
[2022-02-01 12:35] LABS: CALCIUM 8.8 mg/dL (8.5-10.1); CREATININE 0.7 mg/dL (0.6-1.0); GFR 83.5; POTASSIUM 4.1 mmol/L (3.5-5.1)
[2022-02-01 12:43] LABS: ALBUMIN 2.4 g/dL (3.4-5.0); ALBUMIN/GLOBULIN RATIO 0.6 (1.0-1.7); TOTAL BILIRUBIN 0.6 mg/dL (0.2-1.0); TOTAL PROTEIN 6.6 g/dL (6.4-8.2)
[2022-02-01 15:25] LABS: COLOR,URINE YELLOW
[2022-02-01 15:26] LABS: BILIRUBIN,URINE NEGATIVE (NEG); CLARITY,URINE CLOUDY; NITRITE,URINE NEGATIVE (NEG); PROTEIN,URINE NEGATIVE (NEG-TRACE); UROBILINOGEN,URINE 0.2 mg/dL (0.2 mg/dL); WBC,URINE TNTC /HPF (0-4)
[2022-02-01 15:27] LABS: BACTERIA,URINE FEW /HPF (0-FEW)
== END ==
LOC: ONCLAB 11:50
PROVIDERS: ATTEND Internal Medicine Hematology & Oncology
DX: C34.11 Malignant neoplasm of upper lobe, right bronchus or lung (principal); N39.0 Urinary tract infection, site not specified
CPT/HCPCS: 36415; 80053; 81001; 85025

== ENCOUNTER → 2022-02-07 | Outpatient (CLI) | payer MEDICARE ==
[2022-01-24 07:20] VITALS: BP 103/68
[~2022-02-07] MED LIST changes: +HEPARIN PF 500 UNIT/5 ML DISP.SYRIN. IVP ONE; +IOHEXOL 240 MG/ML 50ML VIAL. PO ONE; +IOHEXOL 300 MG/ML 100ML VIAL. IV ONE
--- NOTE | 2022-02-07 14:48 | RAD ---
Examination: CT of the chest abdomen pelvis with IV contrast HISTORY: History of restaging lung cancer COMPARISON: 01/21/2022 Technique: Axial CT images of the chest abdomen pelvis were performed with IV contrast. Coronal and s agittal reformats are performed. Coronal and sagittal reformats are performed Exposure: One or more of the following individualized dose reduction techniques were utilized for thi s examination: 1. Automated exposure control 2. Adjustment of the mA and/or kV according to patient size 3. Use of iterative reconstruction technique FINDINGS: The central airways are patent. The heart size grossly appears unremarkable. Large left pleural effusion is identified. Moderate bilateral lung emphysematous changes. There is a spiculated nodular opacity in the right upper lobe of the lung measuring 3.1 x 2.[address] eura similar to prior exam. Small right pleural effusion with chest tube identified unchanged. The li carmen, spleen, adrenals grossly appears unremarkable. The stomach is mildly distended. The small bowel is nondilated. Moderate amount of feces and gas identified in the colon. Urinary bladder is mildly distended. Large cystic structures identified adjacent to the urinary bladd er could be bladder diverticula or adnexal cysts similar to prior exam. The bilateral kidneys enhance symmetrically. Cystic structure identified in the left kidney measuring 9 mm likely cyst similar to prior exam. Mild degenerative changes thoracic and lumbar spine. IMPRESSION: 1. Unchanged spiculated nodular opacity in the right upper lobe of the lung. Consider PET/CT scan. 2. Large left pleural effusion. 3. Small right pleural effusion with chest tube identified unchanged. 4. Large cystic structures identified adjacent to the urinary bladder could be bladder diverticula o r adnexal cysts similar to prior exam. Electronically signed by: Spike Jiménez MD (02/07/2022 2:46 PM) [id number]
== END ==
LOC: CT 11:33
PROVIDERS: ATTEND Physician Assistant
DX: C34.11 Malignant neoplasm of upper lobe, right bronchus or lung (principal); R91.8 Other nonspecific abnormal finding of lung field; J90 Pleural effusion, not elsewhere classified; N32.89 Other specified disorders of bladder; J43.9 Emphysema, unspecified; N28.89 Other specified disorders of kidney and ureter; M47.814 Spondylosis without myelopathy or radiculopathy, thoracic region; M47.816 Spondylosis without myelopathy or radiculopathy, lumbar region
CPT/HCPCS: 71260; 74177; Q9966; Q9967

== ENCOUNTER → 2022-02-15 | Outpatient (CLI) | payer MEDICARE ==
[2022-01-24 07:20] VITALS: BP 103/68
[~2022-02-15] MED LIST changes: -HEPARIN PF 500 UNIT/5 ML DISP.SYRIN. IVP ONE; -IOHEXOL 240 MG/ML 50ML VIAL. PO ONE; -IOHEXOL 300 MG/ML 100ML VIAL. IV ONE
[2022-02-15 12:47] LABS: BASO % 1 % (0-3); EOS # 0.3 x10^3/uL (0.0-0.7); EOS % 6 % (0-3); HEMATOCRIT 36.2 % (36.0-47.0); HEMOGLOBIN 12.4 g/dL (12.0-15.5); LYMPH # 0.5 x10^3/uL (1.0-4.8); LYMPH % 9 % (24-48); MEAN CORPUSCULAR HEMOGLOBIN 36 pg (25-35); MEAN CORPUSCULAR HGB CONC 34 g/dL (31-37); MEAN CORPUSCULAR VOLUME 106 fL (79-100); MONO # 0.7 x10^3/uL (0.0-1.1); MONO % 12 % (0-9); NEUT # 4.2 x10^3/uL (1.8-7.7); NEUT % 73 % (31-73); PLATELET COUNT 345 x10^3/uL (140-400); RED BLOOD COUNT 3.43 x10^6/uL (3.50-5.40); RED CELL DISTRIBUTION WIDTH 14.2 % (11.5-14.5); WHITE BLOOD COUNT 5.8 x10^3/uL (4.0-11.0)
[2022-02-15 12:52] LABS: CALCIUM 8.8 mg/dL (8.5-10.1); CREATININE 0.7 mg/dL (0.6-1.0); GFR 83.5; POTASSIUM 4.2 mmol/L (3.5-5.1)
[2022-02-15 13:01] LABS: ALBUMIN 2.5 g/dL (3.4-5.0); ALBUMIN/GLOBULIN RATIO 0.7 (1.0-1.7); MAGNESIUM 1.8 mg/dL (1.8-2.4); TOTAL BILIRUBIN 0.6 mg/dL (0.2-1.0)
[2022-02-15 13:07] LABS: FREE T4 1.23 ng/dL (0.76-1.46); THYROID STIM HORMONE (TSH) 1.451 uIU/mL (0.358-3.74)
== END ==
LOC: ONCLAB 11:37
PROVIDERS: ATTEND Internal Medicine Hematology & Oncology
DX: C34.11 Malignant neoplasm of upper lobe, right bronchus or lung (principal); E03.2 Hypothyroidism due to medicaments and other exogenous substances
CPT/HCPCS: 36415; 80053; 83615; 83735; 84439; 84443; 85025

== ENCOUNTER → 2022-03-01 | Outpatient (CLI) | payer MEDICARE ==
[2022-03-01 11:50] LABS: BASO # 0.1 x10^3/uL (0.0-0.2); BASO % 1 % (0-3); EOS # 0.2 x10^3/uL (0.0-0.7); EOS % 2 % (0-3); LYMPH # 0.3 x10^3/uL (1.0-4.8); LYMPH % 3 % (24-48); MEAN CORPUSCULAR HEMOGLOBIN 35 pg (25-35); MEAN CORPUSCULAR HGB CONC 33 g/dL (31-37); MEAN CORPUSCULAR VOLUME 106 fL (79-100); MONO # 0.8 x10^3/uL (0.0-1.1); MONO % 8 % (0-9); NEUT # 8.4 x10^3/uL (1.8-7.7); NEUT % 86 % (31-73); PLATELET COUNT 269 x10^3/uL (140-400); RED CELL DISTRIBUTION WIDTH 13.7 % (11.5-14.5); WHITE BLOOD COUNT 9.7 x10^3/uL (4.0-11.0)
[2022-03-01 11:59] LABS: CALCIUM 9.4 mg/dL (8.5-10.1); CREATININE 0.7 mg/dL (0.6-1.0); GFR 83.5; POTASSIUM 3.8 mmol/L (3.5-5.1)
[2022-03-01 12:06] LABS: ALBUMIN 2.9 g/dL (3.4-5.0); ALBUMIN/GLOBULIN RATIO 0.7 (1.0-1.7); TOTAL BILIRUBIN 0.9 mg/dL (0.2-1.0); TOTAL PROTEIN 7.1 g/dL (6.4-8.2)
[2022-03-01 12:18] LABS: % BANDS 2 % (0-9); % BASOS 2 % (0-3); % EOS 4 % (0-5); % LYMPHS 3 % (24-48); % MONOS 7 % (0-10); % SEGS 82 % (35-66)
[2022-03-01 12:19] LABS: PLT ESTIMATE ADEQUATE (ADEQUATE)
== END ==
LOC: ONCLAB 11:24
PROVIDERS: ATTEND Internal Medicine Hematology & Oncology
DX: C34.11 Malignant neoplasm of upper lobe, right bronchus or lung (principal)
CPT/HCPCS: 36415; 80053; 85007; 85025

== ENCOUNTER 2022-03-08 08:17 | Outpatient (CLI) | payer MEDICARE ==
[2022-03-08] VITALS (8 sets, daily range): BP systolic 104–123; BP diastolic 52–75
[~2022-03-08] VITALS: Ht 170.2 cm; Wt 51.0 kg
[2022-03-08] MEDS ORDERED: MIDAZOLAM HCL/PF 2 MG/2 ML VIAL. ONE (09:21)
[2022-03-08] MEDS ORDERED: FLUMAZENIL 0.5 MG/5 ML VIAL. IV ONE (09:21)
[2022-03-08] MEDS ORDERED: fentaNYL PF VIAL 100 MCG/2 ML VIAL ONE (09:21)
[2022-03-08] MEDS ORDERED: NALOXONE 0.4 MG/ML VIAL. ONE (09:21)
[2022-03-08] MEDS ORDERED: LIDOCAINE WITH 8.4% SOD BICARB 3 ML DISP.SYRIN. ONE (09:43)
[2022-03-08] MEDS ORDERED: fentaNYL PF VIAL 100 MCG/2 ML VIAL IV ONE (10:00)
[2022-03-08] MEDS ORDERED: MIDAZOLAM HCL/PF 2 MG/2 ML VIAL. IV ONE (10:00)
[2022-03-08] MEDS ORDERED: LIDOCAINE WITH 8.4% SOD BICARB 3 ML DISP.SYRIN. IJ ONE (10:00)
--- NOTE | 2022-03-08 11:30 | NUR ---
Discharge Note: SAQIB MOJICA Discharge instructions and discharge home medications reviewed with Patient and a copy given. All questions have been answered and understanding verbalized. The following instructions and handouts were given: MODERATE SEDATION, THORACENTESIS, INCISION CARE. Discontinued JETER NEEDLE FROM LEFT CHEST NIURKA CATH, BANDAID APPLIED, NO COMPLICATIONS. RIGHT CHEST DRESSING intact AND LEFT POSTERIOR CHEST BANDAID CHANGED AND NEW ONE APPLIED. PT TOLERATED WELL, NO COMPLAINTS. PT TAKEN VIA WHEELCHAIR TO OUTPATIENT, WHERE HER SISTER PICKED HER UP IN PRIVATE VEHICLE, TO TRANSPORT HER HOME. Patient discharged to [facility]
--- NOTE | 2022-03-08 13:00 | RAD ---
Left Thoracentesis 03/08/2022 9:56 AM Clinical History: Left pleural effusion. Technique: Relative benefits risks and alternatives were discussed with the patient and/or their rep resentative. Written informed consent was obtained. The patient was placed in seated position. A ramses eout procedure was performed. Sonographic assessment demonstrates a large pleural effusion. A site for skin entry was selected, and subsequently prepped and draped using sterile barrier technique. 1% lidocaine without epinepherine was administered for local anesthesia to the skin and subcutaenous tissues. A 5 Barbadian sheathed needle was passed into the pleural space. Clear yellow fluid was aspirated and t he catheter was connected to a vacuum. Approximately 1.0 liters of fluid were drained. The catheter w as removed and adequate hemostasis was obtained. A sterile dressing was applied. The patient tolerat ed the procedure well, without complications. Impression: Successful ultrasound guided thoracentesis with removal of1.0 liters of fluid. Electronically signed by: Amado Tapia MD (03/08/2022 12:58 PM) [id number]
--- NOTE | 2022-03-12 10:45 | RAD ---
Removal of right-sided tunneled thoracostomy tube March 08, 2022 Consent: The procedure was explained in its entirety to the patient or the patients designated repre sentative by a member of the treatment team, including a discussion of the risks, benefits and common ly accepted alternatives to the procedure, as well as the expected consequences of no therapy whatsoe carmen. Discussion of the risks included, but was not limited to, those that are most frequent and tho se that are rare but possibly severe or life-threatening, as well as the possibility of unforeseen co mplications. The right chest including the pre-existing catheter were prepped and draped using sterile barrier romel hnique. 1% lidocaine was administered for local anesthesia. Blunt dissection was used to free the sub cutaneous cuff. The catheter was removed. Manual pressure was held. Sterile dressing including a occl usive dressing with wrestling cause over the catheter exit site was placed. No immediate complication s were identified. Fluoroscopy time: 0.1 minutes Dose area product 1 Spears centimeter squared Sedation: The procedure was performed under conscious sedation including continuous cardiopulmonary m onitoring via a dedicated sedation nurse. [id number] sedation time: 20 minutes IMPRESSION: Removal of right sided tunneled thoracostomy tube Electronically signed by: Amado Tapia MD (03/12/2022 10:43 AM) [id number]
== END 2022-03-08 11:30 | disposition home or self-care (01) ==
LOC: INTRAD 08:17
PROVIDERS: ATTEND Physician Assistant
DX: J90 Pleural effusion, not elsewhere classified (principal); J44.9 Chronic obstructive pulmonary disease, unspecified; F41.9 Anxiety disorder, unspecified; F32.9 Major depressive disorder, single episode, unspecified; Z85.3 Personal history of malignant neoplasm of breast; Z87.440 Personal history of urinary (tract) infections; Z79.899 Other long term (current) drug therapy; Z98.890 Other specified postprocedural states; Z87.891 Personal history of nicotine dependence; Z72.89 Other problems related to lifestyle; Z88.2 Allergy status to sulfonamides; Z88.6 Allergy status to analgesic agent; Z91.040 Latex allergy status; Z88.8 Allergy status to other drugs, medicaments and biological substances
CPT/HCPCS: 32552; 32555; 99152; J2250; J3010; J3490

== ENCOUNTER → 2022-03-15 | Outpatient (CLI) | payer MEDICARE ==
[2022-03-08 11:30] VITALS: BP 109/62
[2022-03-15 11:54] LABS: BASO # 0.1 x10^3/uL (0.0-0.2); BASO % 1 % (0-3); EOS # 0.1 x10^3/uL (0.0-0.7); EOS % 2 % (0-3); HEMATOCRIT 34.7 % (36.0-47.0); HEMOGLOBIN 11.8 g/dL (12.0-15.5); LYMPH # 0.6 x10^3/uL (1.0-4.8); LYMPH % 9 % (24-48); MEAN CORPUSCULAR HEMOGLOBIN 36 pg (25-35); MEAN CORPUSCULAR HGB CONC 34 g/dL (31-37); MEAN CORPUSCULAR VOLUME 105 fL (79-100); MONO # 0.5 x10^3/uL (0.0-1.1); MONO % 7 % (0-9); NEUT # 5.5 x10^3/uL (1.8-7.7); NEUT % 81 % (31-73); PLATELET COUNT 337 x10^3/uL (140-400); RED BLOOD COUNT 3.31 x10^6/uL (3.50-5.40); WHITE BLOOD COUNT 6.8 x10^3/uL (4.0-11.0)
[2022-03-15 12:06] LABS: CALCIUM 9.1 mg/dL (8.5-10.1); CREATININE 0.6 mg/dL (0.6-1.0); GFR 99.7
[2022-03-15 12:13] LABS: ALBUMIN 2.7 g/dL (3.4-5.0); ALBUMIN/GLOBULIN RATIO 0.7 (1.0-1.7); MAGNESIUM 1.9 mg/dL (1.8-2.4); TOTAL BILIRUBIN 0.4 mg/dL (0.2-1.0); TOTAL PROTEIN 6.8 g/dL (6.4-8.2)
[2022-03-15 12:23] LABS: FREE T4 1.05 ng/dL (0.76-1.46); THYROID STIM HORMONE (TSH) 2.374 uIU/mL (0.358-3.74)
== END ==
LOC: ONCLAB 11:24
PROVIDERS: ATTEND Internal Medicine Hematology & Oncology
DX: C34.11 Malignant neoplasm of upper lobe, right bronchus or lung (principal); E03.2 Hypothyroidism due to medicaments and other exogenous substances
CPT/HCPCS: 36415; 80053; 83615; 83735; 84439; 84443; 85025

== ENCOUNTER → 2022-04-17 | Outpatient (CLI) | payer MEDICARE ==
[2022-03-08 11:30] VITALS: BP 109/62
[2022-04-17 09:36] LABS: BASO % 1 % (0-3); EOS # 0.2 x10^3/uL (0.0-0.7); EOS % 3 % (0-3); HEMATOCRIT 35.9 % (36.0-47.0); HEMOGLOBIN 12.4 g/dL (12.0-15.5); LYMPH # 0.5 x10^3/uL (1.0-4.8); LYMPH % 10 % (24-48); MEAN CORPUSCULAR HEMOGLOBIN 36 pg (25-35); MEAN CORPUSCULAR HGB CONC 35 g/dL (31-37); MEAN CORPUSCULAR VOLUME 103 fL (79-100); MONO # 0.6 x10^3/uL (0.0-1.1); MONO % 11 % (0-9); NEUT # 3.9 x10^3/uL (1.8-7.7); NEUT % 76 % (31-73); PLATELET COUNT 307 x10^3/uL (140-400); RED BLOOD COUNT 3.48 x10^6/uL (3.50-5.40); RED CELL DISTRIBUTION WIDTH 14.3 % (11.5-14.5); WHITE BLOOD COUNT 5.1 x10^3/uL (4.0-11.0)
[2022-04-17 09:47] LABS: CALCIUM 8.9 mg/dL (8.5-10.1); CREATININE 0.7 mg/dL (0.6-1.0); GFR 83.5; POTASSIUM 4.1 mmol/L (3.5-5.1)
[2022-04-17 09:52] LABS: ALBUMIN 2.8 g/dL (3.4-5.0); ALBUMIN/GLOBULIN RATIO 0.7 (1.0-1.7); MAGNESIUM 1.8 mg/dL (1.8-2.4); TOTAL BILIRUBIN 0.4 mg/dL (0.2-1.0)
[2022-04-17 10:03] LABS: FREE T4 1.08 ng/dL (0.76-1.46); THYROID STIM HORMONE (TSH) 7.758 uIU/mL (0.358-3.74)
== END ==
LOC: ONCLAB 09:12
PROVIDERS: ATTEND Internal Medicine Hematology & Oncology
DX: C34.11 Malignant neoplasm of upper lobe, right bronchus or lung (principal); E03.2 Hypothyroidism due to medicaments and other exogenous substances; Z85.3 Personal history of malignant neoplasm of breast
CPT/HCPCS: 36415; 80053; 83615; 83735; 84439; 84443; 85025

== ENCOUNTER → 2022-04-27 | Outpatient (CLI) | payer MEDICARE ==
[~2022-04-27] VITALS: Ht 170.2 cm; Wt 52.0 kg
[2022-04-27 08:11] VITALS: BP 136/79
[2022-04-27 09:19] VITALS: BP 138/70
[2022-04-27 09:35] VITALS: BP 137/75
--- NOTE | 2022-04-27 09:35 | NUR ---
Discharge Note: SAQIB MOJICA Discharge instructions and discharge home medications reviewed with Family Member and a copy given. All questions have been answered and understanding verbalized. The following instructions and handouts were given: thoracentesis Dressing to L back dry and intact Patient discharged to Home or Self Care with Family Member via Wheelchair SOFI MAN Addendum: 04/27/22 at 1118 by AGUILA EDOUARD RN Amended: Links added.
--- NOTE | 2022-04-27 15:56 | RAD ---
Left Thoracentesis 04/27/2022 8:40 AM Clinical History: Left pleural effusion. Technique: Relative benefits risks and alternatives were discussed with the patient and/or their rep resentative. Written informed consent was obtained. The patient was placed in seated position. A ramses eout procedure was performed. Sonographic assessment demonstrates a large pleural effusion. A site for skin entry was selected, and subsequently prepped and draped using sterile barrier technique. 1% lidocaine without epinepherine was administered for local anesthesia to the skin and subcutaenous tissues. A 5 Grenadian sheathed needle was passed into the pleural space. Clear yellow fluid was aspirated and t he catheter was connected to a vacuum. Approximately 0.9 liters of fluid were drained. The catheter w as removed and adequate hemostasis was obtained. A sterile dressing was applied. The patient tolerat ed the procedure well, without complications. Impression: Successful ultrasound guided thoracentesis with removal 0.9 liters of fluid. Electronically signed by: Amado Tapia MD (04/27/2022 3:54 PM) [id number]
== END | disposition home or self-care (01) ==
LOC: INTRAD 07:40
PROVIDERS: ATTEND Internal Medicine Hematology & Oncology
DX: J90 Pleural effusion, not elsewhere classified (principal); J44.9 Chronic obstructive pulmonary disease, unspecified; F41.9 Anxiety disorder, unspecified; F32.9 Major depressive disorder, single episode, unspecified; Z85.3 Personal history of malignant neoplasm of breast; Z87.891 Personal history of nicotine dependence; Z79.899 Other long term (current) drug therapy; Z98.890 Other specified postprocedural states; Z88.2 Allergy status to sulfonamides; Z91.040 Latex allergy status; Z88.8 Allergy status to other drugs, medicaments and biological substances
CPT/HCPCS: 32555

== ENCOUNTER → 2022-05-01 | Outpatient (CLI) | payer MEDICARE ==
[2022-04-27 09:35] VITALS: BP 137/75
--- NOTE | 2022-05-01 17:34 | RAD ---
XR CHEST 2V History: Shortness of breath. Lung cancer. Comparison: 02/01/2022. PET/CT 03/30/2022 Technique: PA and lateral chest radiographs. Findings: There is hyperinflation of the lungs. Small bilateral pleural effusions. The left effusion is decreas ed compared to prior exam. Right upper lobe and right lower lobe scarring. Nodular opacity in the lef t lower lobe and area of prior consolidation/effusion. Heart size and pulmonary vasculature are withi n normal limits. There is a left chest Mediport with catheter tip at the mid SVC. Left axillary surgi martín clips. Bilateral breast implants. Impression: 1. Chronic changes of the lungs with small bilateral effusions, improved from comparisons right uppe r and right lower lobe scarring. 2. Left lower lobe nodular opacity or consolidation new from comparisons however this area was previ ously obscured by effusion/consolidation. Electronically signed by: Eliceo Patten MD (05/01/2022 5:31 PM) [id number]
== END ==
LOC: RAD 16:15
PROVIDERS: ATTEND Physician Assistant
DX: C34.11 Malignant neoplasm of upper lobe, right bronchus or lung (principal); J90 Pleural effusion, not elsewhere classified; J98.4 Other disorders of lung; Z98.890 Other specified postprocedural states; Z98.82 Breast implant status
CPT/HCPCS: 71046

== ENCOUNTER → 2022-05-01 | Outpatient (CLI) | payer MEDICARE ==
[2022-04-27 09:35] VITALS: BP 137/75
[2022-05-01 13:33] LABS: BASO % 1 % (0-3); EOS # 0.1 x10^3/uL (0.0-0.7); EOS % 3 % (0-3); HEMOGLOBIN 12.1 g/dL (12.0-15.5); LYMPH # 0.4 x10^3/uL (1.0-4.8); LYMPH % 8 % (24-48); MEAN CORPUSCULAR HEMOGLOBIN 35 pg (25-35); MEAN CORPUSCULAR HGB CONC 34 g/dL (31-37); MEAN CORPUSCULAR VOLUME 104 fL (79-100); MONO # 0.4 x10^3/uL (0.0-1.1); MONO % 8 % (0-9); NEUT # 4.4 x10^3/uL (1.8-7.7); NEUT % 81 % (31-73); PLATELET COUNT 242 x10^3/uL (140-400); RED BLOOD COUNT 3.47 x10^6/uL (3.50-5.40); RED CELL DISTRIBUTION WIDTH 14.7 % (11.5-14.5); WHITE BLOOD COUNT 5.4 x10^3/uL (4.0-11.0)
[2022-05-01 13:52] LABS: CALCIUM 8.9 mg/dL (8.5-10.1); CREATININE 0.8 mg/dL (0.6-1.0); GFR 71.5
[2022-05-01 14:00] LABS: ALBUMIN 2.7 g/dL (3.4-5.0); ALBUMIN/GLOBULIN RATIO 0.7 (1.0-1.7); MAGNESIUM 1.7 mg/dL (1.8-2.4); TOTAL BILIRUBIN 0.5 mg/dL (0.2-1.0); TOTAL PROTEIN 6.6 g/dL (6.4-8.2)
== END ==
LOC: ONCLAB 13:14
PROVIDERS: ATTEND Internal Medicine Hematology & Oncology
DX: C34.11 Malignant neoplasm of upper lobe, right bronchus or lung (principal); Z85.3 Personal history of malignant neoplasm of breast
CPT/HCPCS: 36415; 71046; 80053; 83615; 83735; 85025